=== PATIENT | female | born 1965 | race Caucasian/White ===

== ENCOUNTER → 2020-02-18 09:51 | Outpatient (BNVA) | payer MEDICARE, SELFPAY | PROVIDERS: PCP Nurse Practitioner Family; Referring Provider Nurse Practitioner Family; Visit Provider Internal Medicine | DX: R05 Cough (principal); J44.9 Chronic obstructive pulmonary disease, unspecified; Z79.899 Other long term (current) drug therapy | CPT/HCPCS: 99203 ==

== ENCOUNTER → 2020-03-05 15:33 | Outpatient (BNVA) | payer MEDICARE, SELFPAY | PROVIDERS: PCP Nurse Practitioner Family; Referring Provider Nurse Practitioner Family; Visit Provider Nurse Practitioner | DX: R19.5 Other fecal abnormalities (principal); K85.30 Drug induced acute pancreatitis without necrosis or infection; R11.2 Nausea with vomiting, unspecified; Z80.0 Family history of malignant neoplasm of digestive organs | CPT/HCPCS: 99212 ==

== ENCOUNTER → 2020-03-11 13:24 | Outpatient (BNVA) | payer MEDICARE, SELFPAY | PROVIDERS: PCP Nurse Practitioner Family; Referring Provider Nurse Practitioner Family; Visit Provider Internal Medicine Cardiovascular Disease | DX: I10 Essential (primary) hypertension (principal); J44.9 Chronic obstructive pulmonary disease, unspecified; Z79.899 Other long term (current) drug therapy | CPT/HCPCS: 99212 ==

== ENCOUNTER → 2020-03-16 09:28 | Outpatient (BNVA) | payer MEDICARE, SELFPAY | PROVIDERS: PCP Nurse Practitioner Family; Visit Provider Internal Medicine | DX: J44.9 Chronic obstructive pulmonary disease, unspecified (principal); R05 Cough | CPT/HCPCS: 99212 ==

== ENCOUNTER → 2020-04-13 08:53 | Outpatient (BNVA) | payer MEDICARE, SELFPAY | PROVIDERS: PCP Nurse Practitioner Family; Referring Provider Nurse Practitioner Family; Visit Provider Internal Medicine Cardiovascular Disease | DX: I10 Essential (primary) hypertension (principal) | CPT/HCPCS: 99212 ==

== ENCOUNTER → 2020-06-17 09:39 | Outpatient (BNVA) | payer MEDICARE, SELFPAY | PROVIDERS: PCP Nurse Practitioner Family; Visit Provider Internal Medicine | DX: Z13.89 Encounter for screening for other disorder (principal) | CPT/HCPCS: Q3014 ==

== ENCOUNTER → 2020-06-23 08:42 | Outpatient (BNVA) | payer MEDICARE, SELFPAY | PROVIDERS: PCP Nurse Practitioner Family; Visit Provider Nurse Practitioner | DX: Z76.89 Persons encountering health services in other specified circumstances (principal) | CPT/HCPCS: Q3014 ==

== ENCOUNTER 2020-06-24 08:02 | Outpatient (REF) | payer MEDICARE, SELFPAY ==
[2020-06-24 12:08] LABS: Alanine Aminotransferase 22 U/L (0-31); Albumin Level 4.3 g/dL (3.5-5.0); Alkaline Phosphatase 83 U/L (39-117); Amylase 162 U/L (28-100); Aspartate Amino Transferase 20 U/L (5-31); Bilirubin Direct < 0.2 mg/dL (0.0-0.5); Bilirubin Total 0.3 mg/dL (0.0-1.0); Hepatitis A Antibody IgG Nonreactive (Nonreactive); Lactate Dehydrogenase 228 U/L (122-220); Total Protein 6.5 g/dL (6.5-8.0); ~Hepatitis A Antibody IgG 0.25 S/CO (0.00-0.99)
[2020-06-24 12:10] LABS: Hepatitis A Antibody IgM 0.16 Index (0-0.79); ~Hepatitis A Antibody IgM Nonreactive (Nonreactive)
[2020-06-24 12:32] LABS: Lipase 252 U/L (8-78)
== END 2020-06-24 08:03 | disposition home or self-care (01) ==
LOC: HO.HMGCLDS 08:02
PROVIDERS: PCP Nurse Practitioner Family; Visit Provider Nurse Practitioner
DX: K85.30 Drug induced acute pancreatitis without necrosis or infection (principal); R10.10 Upper abdominal pain, unspecified
CPT/HCPCS: 36415; 80076; 82150; 83615; 83690; 86708; 86709

== ENCOUNTER 2020-06-25 08:37 | Outpatient (REF) | payer MEDICARE, SELFPAY | END 2020-06-25 08:38 | disposition home or self-care (01) | LOC: HO.HMGCLNP 08:37 | PROVIDERS: Visit Provider Nurse Practitioner | DX: R11.2 Nausea with vomiting, unspecified (principal); R10.10 Upper abdominal pain, unspecified; K85.30 Drug induced acute pancreatitis without necrosis or infection | CPT/HCPCS: 87338 ==

== ENCOUNTER 2020-06-29 09:41 | Emergency (ER) | payer MEDICARE, OTHER, SELFPAY ==
[2020-06-29] VITALS (8 sets, daily range): BP systolic 145–197; BP diastolic 81–121; PULSE 69–90; RESP 17–19; TEMP 36.5–36.9; O2SAT 94–99; BMI 25.0
--- NOTE | ~2020-06-29 | MR_ITS ---
EXAMINATION: MR CHOLANGIOPANCREATOGRAPHY CLINICAL INFORMATION: Evaluation of pancreas and pancreatic duct. COMPARISON: CT scan from earlier this evening TECHNIQUE: Multiple routine MRI sequences through the abdomen were obtained. Heavily T2-weighted images were performed utilizing a dedicated MRCP technique. Contrast was not utilized for the study. FINDINGS: Biliary system: The common bile duct is normal in course and caliber measuring up to 0.7 cm with no evidence for intra-or extrahepatic biliary ductal dilatation. No intraluminal filling defects are appreciated. Gallbladder: No gallstones, gallbladder wall thickening, or pericholecystic fluid. Liver parenchyma is homogeneous in signal with no focal hepatic lesion appreciated. Pancreas: The pancreatic duct measures up to 0.4 cm caliber with no evidence for pancreatic ductal obstruction or filling defects. The duct is well-visualized throughout its course up to the ampulla. There is normal homogeneous signal to the pancreas with no focal suspicious pancreatic lesion. No peripancreatic inflammatory changes or fluid No visualized abnormalities are seen in the kidneys, adrenals, or spleen. MR/MR MRCP IMPRESSION: Common bile duct upper limits of normal for size. Pancreatic duct is mildly prominent but I do not appreciate any focal filling defects as it extends up to the ampulla. Etiology for this mild ductal prominence is uncertain. In theory a subtle ampullary lesion cannot be entirely excluded although no discrete lesion is seen on the MR. If clinical symptoms persist, consider direct visualization of the ampulla. Pancreas itself is homogeneous in signal.
--- NOTE | ~2020-06-29 | CT_ITS ---
EXAMINATION: CT ABDOMEN AND PELVIS WITH CONTRAST CLINICAL INFORMATION: Abdominal pain COMPARISON: 03/07/2019 TECHNIQUE: Multidetector volumetric images were obtained from the superior aspect of the liver through the pubic symphysis following administration 85 mL of Omnipaque 350 intravenous contrast. Sagittal and coronal reformatted images were obtained on the technologist's workstation. Oral contrast: No This CT examination was performed using dose optimization techniques as appropriate, variously including the following: *Automated exposure control *Adjustment of mA and/or kV according to patient size (this includes techniques or standardized protocols for targeted exams where dose is matched to indication/reason for exam; i.e. extremities or head) *Use of iterative reconstruction technique DLP: 535 mGy-cm FINDINGS: LUNG BASES: The visualized lung bases are unremarkable. LIVER, GALLBLADDER, AND BILIARY TREE: The liver is normal in size, shape, and attenuation. No focal hepatic lesion or biliary ductal dilatation is present. The gallbladder is unremarkable with no evidence of radiopaque gallstones, gallbladder wall thickening, or obvious pericholecystic inflammatory changes. The common bile duct is prominent but similar to prior studies, up to 7 mm in diameter. PANCREAS: There is worsened dilation of the pancreatic duct, measuring up to 6 to 7 mm in the head of the pancreas. The pancreatic duct was at most 3 to 4 mm on the prior study 03/07/2019. Abnormal ductal dilatation is seen distally to the tail of the pancreas. No definite mass seen in the pancreatic head. An ampullary mass or stenosis could give this appearance. No peripancreatic fluid or inflammatory changes. SPLEEN: Unremarkable. ADRENAL GLANDS: Unremarkable. KIDNEYS AND URETERS: The kidneys are normal in size, shape, and attenuation. No hydronephrosis, hydroureter, or calculi seen. No perinephric stranding. BLADDER: Unremarkable. GASTROINTESTINAL TRACT: Stomach and small bowel are nondilated. Hyperdense suture material seen adjacent the cecum suggest prior appendectomy. No evidence of colitis or diverticulitis. ABDOMINAL WALL: No significant hernia is appreciated. LYMPH NODES: Normal. VASCULAR: Prominent azygos vein. Normal caliber aorta. PELVIC VISCERA: The uterus and adnexa are unremarkable. OSSEOUS STRUCTURES: Degenerative disc disease at L5-S1. CT/CT abdomen pelvis w con IMPRESSION: There is worsened dilation of the pancreatic duct, now nearly 6-7 mm in the head of the pancreas. No pancreatic head mass seen. An ampullary mass or stenosis could give this appearance. Consider correlation with ERCP. No peripancreatic fluid or inflammatory changes to suggest acute pancreatitis.
--- NOTE | 2020-06-29 11:15 | ECG_ITS ---
Test Reason : ABDOMINAL PAIN Blood Pressure : / mmHG Vent. Rate : 070 BPM Atrial Rate : 070 BPM P-R Int : 150 ms QRS Dur : 092 ms QT Int : 396 ms P-R-T Axes : 107 -21 053 degrees QTc Int : 427 ms Normal sinus rhythm Incomplete right bundle branch block Septal infarct , age undetermined Abnormal ECG When compared with ECG of 03-DEC-2019 17:29, Septal infarct is now Present Referred By: Fahad Barnes Electronically Signed By:SHAYY GUZMAN MD
--- NOTE | 2020-06-29 11:15 | ED.ABDPAIN ---
HPI - Abdominal Pain General Chief Complaint: Abdominal Pain <Fahad Barnes NP - Last Filed: 06/29/20 13:08> Stated Complaint: pancreatitis,abnormal labs <Fahad Barnes NP - Last Filed: 06/29/20 13:08> Time Seen by Provider: 06/29/20 11:14 <Fahad Barnes NP - Last Filed: 06/29/20 13:08> Source: patient <Fahad Barnes NP - Last Filed: 06/29/20 13:08> Mode of arrival: ambulatory <Fahad Barnes NP - Last Filed: 06/29/20 13:08> Limitations: no limitations <Fahad Barnes NP - Last Filed: 06/29/20 13:08> History of Present Illness HPI narrative: Pleasant 54-year-old female with past medical history significant for hypertension, cardiomyopathy, COPD who is a former 20+ year pack a day smoker states quit smoking 6 months ago, depression, anxiety, migraine headaches, complex regional pain syndrome was seen pain management in the past no longer seen them and surgical history significant for section, appendectomy and cardiac catheterization in the past, history of chronic GI issues with irregular bowels and states previously diagnosed pancreatitis and Monique of unclear etiology Today, she presents ambulatory via triage per the instructions of her GI team she reports that she has been having some left upper quadrant abdominal pain and had a blood work on outpatient basis last week and was called today given there was abnormalities in the blood work and the left-sided abdominal pain to come to our emergency room for possible pancreatitis. She does report that she has chronic irregular bowel movements with sometimes constipated sometimes diarrhea and she will get epigastric abdominal pain intermittently that actually seems to improve with some food intake. There is mild nausea but no vomiting. <Fahad Barnes NP - Last Filed: 06/29/20 13:08> MD elicited complaint: abdominal pain <Fahad Barnes NP - Last Filed: 06/29/20 13:08> Location: LUQ <Fahad Barnes NP - Last Filed: 06/29/20 13:08> Severity: moderate <Fahad Barnes NP - Last Filed: 06/29/20 13:08> Quality: aching <Fahad Barnes NP - Last Filed: 06/29/20 13:08> Radiation: LUQ <Fahad Barnes NP - Last Filed: 06/29/20 13:08> Migration to: L flank <Fahad Barnes NP - Last Filed: 06/29/20 13:08> Exacerbating factors: nothing <Fahad Barnes NP - Last Filed: 06/29/20 13:08> Relieving factors: eating <Fahad Barnes NP - Last Filed: 06/29/20 13:08> Associated symptoms: nausea <Fahad Barnes NP - Last Filed: 06/29/20 13:08> Related Data Home Medications: Home Medications Medication Instructions Recorded Confirmed albuterol sulfate 90 mcg/actuation INHALATION 02/05/20 04/13/20 aerosol inhaler alprazolam 0.5 mg tablet 0.5 mg PO Q8H PRN 02/05/20 04/13/20 ammonium lactate 12 % topical cream 1 applic TOPICAL BID 02/05/20 04/13/20 benzonatate 100 mg capsule 100 mg PO Q8H PRN 02/05/20 04/13/20 betamethasone dipropionate 0.05 % 1 applic TOPICAL BID 02/05/20 04/13/20 topical ointment [id number]-[id number]-lulrdzkn 2 tab PO TID 02/05/20 04/13/20 50 mg-325 mg-40 mg tablet clotrimazole 10 mg cris mg PO 02/05/20 04/13/20 irbesartan 300 mg tablet 300 mg PO DAILY 02/05/20 04/13/20 montelukast 10 mg tablet 10 mg PO BEDTIME 02/05/20 04/13/20 paroxetine HCl 30 mg tablet 30 mg PO QAM 02/05/20 04/13/20 pyridostigmine bromide 60 mg tablet 60 mg PO TID 02/05/20 04/13/20 aspirin 81 mg tablet,delayed 81 mg PO DAILY 02/18/20 04/13/20 release mecobalamin (vitamin B12) 1,000 1,000 mcg SUBLINGUAL DAILY 02/18/20 04/13/20 mcg disintegrating tablet,sublingual amlodipine 10 mg tablet 10 mg PO DAILY 03/11/20 04/13/20 bupropion HCl 300 mg 24 hr tablet, mg PO 04/13/20 04/13/20 extended release cyclobenzaprine 10 mg tablet 10 mg PO DAILY PRN 04/13/20 04/13/20 dextroamphetamine-amphetamine 10 1 tab PO DAILY 06/17/20 mg tablet Previous Rx's Medication Instructions Recorded diltiazem HCl 120 mg 120 mg PO DAILY 90 Days #90 cap 03/24/20 capsule,extended release 24 hr bisacodyl 5 mg tablet,delayed 10 mg PO DAILY #60 tab 04/06/20 release clonidine HCl 0.1 mg tablet 0.1 mg PO TID #270 tab 04/21/20 <Fahad Barnes NP - Last Filed: 06/29/20 13:08> Allergies/Adverse Reactions: Allergies Allergy/AdvReac Type Severity Reaction Status Date / Time gabapentin [GABAPENTIN] Allergy Intermediate ANXIETY Verified 06/23/20 08:44 lisinopril [LISINOPRIL] Allergy Intermediate COUGH Verified 06/23/20 08:44 atorvastatin Allergy Unknown eye pain Verified 06/23/20 08:44 carvedilol [CARVEDILOL] Allergy Unknown SHORTNESS Verified 06/23/20 08:44 OF BREATH, sob,elevated bp chlorthalidone Allergy Unknown PANCREATITI Verified 06/23/20 08:44 [CHLORTHALIDONE] S Sulfa (Sulfonamide Allergy Unknown c-diff Verified 06/23/20 08:44 Antibiotics) topiramate [Topamax] Allergy Unknown Unknown Verified 06/23/20 08:44 erythromycin base AdvReac Intermediate NAUSEA Verified 06/17/20 09:41 [ERYTHROMYCIN BASE] amitriptyline [AMITRIPTYLINE] AdvReac Unknown AGITATION Verified 06/17/20 09:41 <Fahad Barnes NP - Last Filed: 06/29/20 13:08> Review of Systems Review of Systems Constitutional: No Weight loss, No Fever, No Chills, No Night Sweats, No Fatigue, No Malaise ENT/Mouth: No Hearing loss, No Ear Pain, No Nasal Congestion, No Sinus Pain, No Hoarseness, No sore throat, No Rhinorrhea, No Swallowing Difficulty Eyes: No Eye Pain, No Swelling, No Redness, No Foreign Body, No Discharge, No Vision Changes Cardiovascular: No Chest Pain, No SOB, No Dyspnea on Exertion, No Orthopnea, No Edema, No Palpitations Respiratory: No Cough, No Sputum, No Wheezing, No Smoke Exposure, No Dyspnea Gastrointestinal: Abdominal pain as noted per HPI, No Hematochezia, No Melena Genitourinary: no irregular bleeding, No Dysuria, No Urinary Frequency, No Hematuria, No Urinary Incontinence, No Urgency, No Flank Pain, No Urinary Flow Changes, No Hesitancy Musculoskeletal: No joint pain, No Myalgias, No Joint Swelling Skin: No Skin Lesions, No rash Neuro: No Weakness, No Numbness, No Paresthesias, No Loss of Consciousness, No Dizziness, No Headache Psych: No Social Issues Heme/Lymph: No Bruising, No Bleeding,No Lymphadenopathy Endocrine: No Polyuria, No Polydipsia, No Temperature Intolerance <Fahad Barnes NP - Last Filed: 06/29/20 13:08> Yes all other systems are reviewed and are negative <Fahad Barnes NP - Last Filed: 06/29/20 13:08> Physical Exam Vital Signs: Vital Signs: Last Vital Signs Temp 98.0 F 06/29/20 13:42 Pulse 79 06/29/20 13:42 Resp 18 06/29/20 13:42 BP 153/93 H 06/29/20 13:42 Pulse Ox 99 06/29/20 13:42 Body Mass Index 25.0 Reviewed <Fahad Barnes NP - Last Filed: 06/29/20 13:08> Vital Signs: Last Vital Signs Temp 98.0 F 06/29/20 13:42 Pulse 79 06/29/20 13:42 Resp 18 06/29/20 13:42 BP 153/93 H 06/29/20 13:42 Pulse Ox 99 06/29/20 13:42 Body Mass Index 25.0 <Luis Angel Suggs MD - Last Filed: 06/29/20 15:02> Const: General: cooperative and healthy appearing; No acute distress or intoxicated appearing <Fahad Barnes NP - Last Filed: 06/29/20 13:08> Nutritional Appearance: average body habitus <Fahad Barnes NP - Last Filed: 06/29/20 13:08> Orientation/consciousness: patient oriented x3 <Fahad Barnes NP - Last Filed: 06/29/20 13:08> HENMT: Head: Yes normal to inspection <Fahad Barnes NP - Last Filed: 06/29/20 13:08> Ears: hearing grossly normal bilaterally <[facility] Molly - Last Filed: 06/29/20 13:08> Eyes: General: appearance normal, both eyes and all related structures <[facility] Molly - Last Filed: 06/29/20 13:08> Visual Cook: normal visual cook by confrontation <[facility] Molly - Last Filed: 06/29/20 13:08> Neck: Neck: Yes normal visual inspection, No positive Brudzinski's sign, No positive Kernig's sign and No tender <[facility] - Last Filed: 06/29/20 13:08> Thyroid: Thyroid normal [facility] - Last Filed: 06/29/20 13:08> Chest: Chest palpation & inspection: normal inspection of the chest <[facility] - Last Filed: 06/29/20 13:08> Resp: Effort & Inspection: normal respiratory effort <[facility] Barnes - Last Filed: 06/29/20 13:08> Auscultation: clear to auscultation bilaterally <[facility] - Last Filed: 06/29/20 13:08> Cardio: Jugular venous distension: no JVD <[facility] - Last Filed: 06/29/20 13:08> Rate: regular rate <[facility] - Last Filed: 06/29/20 13:08> Rhythm: regular rhythm <[facility] - Last Filed: 06/29/20 13:08> Heart sounds: S1 normal heart sound present and S2 normal heart sound present <[facility] - Last Filed: 06/29/20 13:08> GI: Inspection: Yes normal to inspection <[facility] - Last Filed: 06/29/20 13:08> Palpation (GI): Tenderness to palpation present (GI) in the LUQ <[facility] - Last Filed: 06/29/20 13:08> Percussion: Yes normal to percussion <[facility] - Last Filed: 06/29/20 13:08> Auscultation: normal bowel sounds <[facility] - Last Filed: 06/29/20 13:08> : General: Yes no CVA tenderness <Fahad Barnes NP - Last Filed: 06/29/20 13:08> Back/Spine/Pelvis: Back: no CVA tenderness <Fahad Barnes NP - Last Filed: 06/29/20 13:08> Skin: General skin exam: no rashes or lesions noted <Fahad Barnes NP - Last Filed: 06/29/20 13:08> Neuro: General: patient oriented x3 <Fahad Barnes NP - Last Filed: 06/29/20 13:08> Extrem: General: Yes normal to inspection <Fahad Barnes NP - Last Filed: 06/29/20 13:08> Course Course Course Narrative: 1300 Sign-out to Colten BANUELOS Patient labs without significant leukocytosis her H and H did drop by 1 point without any obvious bleeding. Chemistries without significant derangement no significant transaminitis lipase and amylase repeat still pending. Abdominal CT is done awaiting results. Will likely need consultation with GI services and pending disposition based on the CT results. <Fahad Barnes NP - Last Filed: 06/29/20 13:08> I have discussed the case and management with the SAMARA <Luis Angel Suggs MD - Last Filed: 06/29/20 15:02> MDM - Abdominal Pain MDM Narrative Medical decision making narrative: Will repeat labs, abdominal pelvis CT scan with IV dye and treat with antiemetics/analgesia p.r.n.. Well nontoxic appearing. <Fahad Barnes NP - Last Filed: 06/29/20 13:08> Differential Diagnosis Differential diagnosis: Likely abdominal pain, gastroenteritis, gastritis and pancreatitis; Unlikely aortic dissection, acute appendicitis, bowel perforation, calculus of kidney, constipation, diverticulitis, endometriosis, mesenteric ischemia, ovarian cyst, peptic ulcer disease, renal colic and small bowel obstruction <Fahad Barnes NP - Last Filed: 06/29/20 13:08> Medical Records Attestation: I reviewed the patient's medical records. <Fahad Barnes NP - Last Filed: 06/29/20 13:08> Medical records narrative: Gastroenterology as well as GI notes reviewed <Fahda Barnes NP - Last Filed: 06/29/20 13:08> Lab Data Attestation: I reviewed the patient's lab results. <Fahad Barnes NP - Last Filed: 06/29/20 13:08> Result diagrams: : 06/29/20 11:28 06/29/20 11:28 <Fahad Barnes NP - Last Filed: 06/29/20 13:08> Labs: Lab Results 06/29/20 06/29/20 06/29/20 Range/Units 11:28 11:28 11:28 WBC 5.8 (4.8-10.8) X10*3/uL RBC 4.10 L (4.20-5.50) X10*6/uL Hgb 11.5 L (12.0-16.0) g/dl Hct 36.3 L (37-47) % MCV 88.5 (80-98) fL MCH 28.0 (27.0-33.0) pg MCHC 31.7 (31.0-35.0) g/dl RDW 13.2 (11.0-16.0) % Plt Count 262 (160-400) X10*3/uL MPV 9.7 (9.4-12.3) fL Immature Gran % (Auto) 0.2 (0.0-0.4) % Neut % (Auto) 53.3 (45-73) % Lymph % (Auto) 36.3 (20-40) % Clay % (Auto) 7.6 (2-11) % Eos % (Auto) 2.1 (0-4) % Baso % (Auto) 0.5 (0-2) % Lymph # (Auto) 2.1 (1.2-4.9) X10*3/uL Clay # (Auto) 0.4 (0.1-1.2) X10*3/uL Eos # (Auto) 0.1 (0.0-0.4) X10*3/uL Baso # (Auto) 0.0 (0.0-0.2) X10*3/uL Abs Immat Gran (auto) 0.01 (0.00-0.03) X10*3/uL Absolute Neuts (auto) 3.1 (2.0-8.3) X10*3/uL Absolute Nucleated RBC 0.000 (0.0-0.012) X10*3/uL Nucleated RBC % (auto) 0.0 (0.0-0.2) /100WBC PT 10.8 (10.8-13.0) SEC INR 0.9 (0.9-1.1) APTT 40.2 H (24.1-38.0) SEC Sodium 140 (135-145) mmol/L Potassium 4.3 (3.3-5.1) mmol/L Chloride 110 H (96-108) mmol/L Carbon Dioxide 25 (22-29) mmol/L Anion Gap 9 L (12-20) BUN 20 H (9-16) mg/dL Creatinine 0.81 (0.5-1.4) mg/dL Estim Creat Clear Calc 69.7 Estimated GFR > 60 Random Glucose 100 (60-115) mg/dL Calcium 8.7 (8.4-10.2) mg/dL Total Bilirubin < 0.2 (0.0-1.0) mg/dL AST 16 (5-31) U/L ALT 18 (0-31) U/L Alkaline Phosphatase 83 (39-117) U/L Total Protein 6.2 L (6.5-8.0) g/dL Albumin 4.2 (3.5-5.0) g/dL Amylase 122 H D (28-100) U/L Lipase 155 H (8-78) U/L Urine Color Urine Appearance Urine pH (5.0-8.0) Ur Specific [place] (1.005-1.025) Urine Protein (NEG-TRACE) MG/DL Urine Glucose (UA) (NEG) MG/DL Urine Ketones (NEG) MG/DL Urine Blood (NEG) Urine Nitrite (NEG) Ur Leukocyte Esterase (NEG) Urine RBC (0) /HPF Urine WBC (0-4) /HPF Ur Squamous Epith Cells /LPF Ur Renal Epithelial Cell /LPF Urine Bacteria /LPF Urine Opiates Screen (Not Detect) Ur Barbiturates Screen (Not Detect) Ur Phencyclidine Scrn (Not Detect) Ur Amphetamines Screen (Not Detect) U Benzodiazepines Scrn (Not Detect) Urine Cocaine Screen (Not Detect) U Marijuana (THC) Screen (Not Detect) Ethyl Alcohol mg/dL 06/29/20 06/29/20 06/29/20 Range/Units 11:28 11:45 11:45 WBC (4.8-10.8) X10*3/uL RBC (4.20-5.50) X10*6/uL Hgb (12.0-16.0) g/dl Hct (37-47) % MCV (80-98) fL MCH (27.0-33.0) pg MCHC (31.0-35.0) g/dl RDW (11.0-16.0) % Plt Count (160-400) X10*3/uL MPV (9.4-12.3) fL Immature Gran % (Auto) (0.0-0.4) % Neut % (Auto) (45-73) % Lymph % (Auto) (20-40) % Clay % (Auto) (2-11) % Eos % (Auto) (0-4) % Baso % (Auto) (0-2) % Lymph # (Auto) (1.2-4.9) X10*3/uL Clay # (Auto) (0.1-1.2) X10*3/uL Eos # (Auto) (0.0-0.4) X10*3/uL Baso # (Auto) (0.0-0.2) X10*3/uL Abs Immat Gran (auto) (0.00-0.03) X10*3/uL Absolute Neuts (auto) (2.0-8.3) X10*3/uL Absolute Nucleated RBC (0.0-0.012) X10*3/uL Nucleated RBC % (auto) (0.0-0.2) /100WBC PT (10.8-13.0) SEC INR (0.9-1.1) APTT (24.1-38.0) SEC Sodium (135-145) mmol/L Potassium (3.3-5.1) mmol/L Chloride (96-108) mmol/L Carbon Dioxide (22-29) mmol/L Anion Gap (12-20) BUN (9-16) mg/dL Creatinine (0.5-1.4) mg/dL Estim Creat Clear Calc Estimated GFR Random Glucose (60-115) mg/dL Calcium (8.4-10.2) mg/dL Total Bilirubin (0.0-1.0) mg/dL AST (5-31) U/L ALT (0-31) U/L Alkaline Phosphatase (39-117) U/L Total Protein (6.5-8.0) g/dL Albumin (3.5-5.0) g/dL Amylase (28-100) U/L Lipase (8-78) U/L Urine Color YELLOW Urine Appearance CLEAR Urine pH 6.0 (5.0-8.0) Ur Specific [place] 1.025 (1.005-1.025) Urine Protein NEG (NEG-TRACE) MG/DL Urine Glucose (UA) NEG (NEG) MG/DL Urine Ketones NEG (NEG) MG/DL Urine Blood NEG (NEG) Urine Nitrite NEG (NEG) Ur Leukocyte Esterase NEG (NEG) Urine RBC 0 (0) /HPF Urine WBC 0 (0-4) /HPF Ur Squamous Epith Cells 1+ /LPF Ur Renal Epithelial Cell TRACE /LPF Urine Bacteria NONE /LPF Urine Opiates Screen Not Detected (Not Detect) Ur Barbiturates Screen POSITIVE H (Not Detect) Ur Phencyclidine Scrn Not Detected (Not Detect) Ur Amphetamines Screen POSITIVE H (Not Detect) U Benzodiazepines Scrn POSITIVE H (Not Detect) Urine Cocaine Screen Not Detected (Not Detect) U Marijuana (THC) Screen POSITIVE H (Not Detect) Ethyl Alcohol < 10 mg/dL <Fahad Barnes NP - Last Filed: 06/29/20 13:08> Lab Results 06/29/20 06/29/20 06/29/20 Range/Units 11:28 11:28 11:28 WBC 5.8 (4.8-10.8) X10*3/uL RBC 4.10 L (4.20-5.50) X10*6/uL Hgb 11.5 L (12.0-16.0) g/dl Hct 36.3 L (37-47) % MCV 88.5 (80-98) fL MCH 28.0 (27.0-33.0) pg MCHC 31.7 (31.0-35.0) g/dl RDW 13.2 (11.0-16.0) % Plt Count 262 (160-400) X10*3/uL MPV 9.7 (9.4-12.3) fL Immature Gran % (Auto) 0.2 (0.0-0.4) % Neut % (Auto) 53.3 (45-73) % Lymph % (Auto) 36.3 (20-40) % Clay % (Auto) 7.6 (2-11) % Eos % (Auto) 2.1 (0-4) % Baso % (Auto) 0.5 (0-2) % Lymph # (Auto) 2.1 (1.2-4.9) X10*3/uL Clay # (Auto) 0.4 (0.1-1.2) X10*3/uL Eos # (Auto) 0.1 (0.0-0.4) X10*3/uL Baso # (Auto) 0.0 (0.0-0.2) X10*3/uL Abs Immat Gran (auto) 0.01 (0.00-0.03) X10*3/uL Absolute Neuts (auto) 3.1 (2.0-8.3) X10*3/uL Absolute Nucleated RBC 0.000 (0.0-0.012) X10*3/uL Nucleated RBC % (auto) 0.0 (0.0-0.2) /100WBC PT 10.8 (10.8-13.0) SEC INR 0.9 (0.9-1.1) APTT 40.2 H (24.1-38.0) SEC Sodium 140 (135-145) mmol/L Potassium 4.3 (3.3-5.1) mmol/L Chloride 110 H (96-108) mmol/L Carbon Dioxide 25 (22-29) mmol/L Anion Gap 9 L (12-20) BUN 20 H (9-16) mg/dL Creatinine 0.81 (0.5-1.4) mg/dL Estim Creat Clear Calc 69.7 Estimated GFR > 60 Random Glucose 100 (60-115) mg/dL Calcium 8.7 (8.4-10.2) mg/dL Total Bilirubin < 0.2 (0.0-1.0) mg/dL AST 16 (5-31) U/L ALT 18 (0-31) U/L Alkaline Phosphatase 83 (39-117) U/L Total Protein 6.2 L (6.5-8.0) g/dL Albumin 4.2 (3.5-5.0) g/dL Amylase 122 H D (28-100) U/L Lipase 155 H (8-78) U/L Urine Color Urine Appearance Urine pH (5.0-8.0) Ur Specific [place] (1.005-1.025) Urine Protein (NEG-TRACE) MG/DL Urine Glucose (UA) (NEG) MG/DL Urine Ketones (NEG) MG/DL Urine Blood (NEG) Urine Nitrite (NEG) Ur Leukocyte Esterase (NEG) Urine RBC (0) /HPF Urine WBC (0-4) /HPF Ur Squamous Epith Cells /LPF Ur Renal Epithelial Cell /LPF Urine Bacteria /LPF Urine Opiates Screen (Not Detect) Ur Barbiturates Screen (Not Detect) Ur Phencyclidine Scrn (Not Detect) Ur Amphetamines Screen (Not Detect) U Benzodiazepines Scrn (Not Detect) Urine Cocaine Screen (Not Detect) U Marijuana (THC) Screen (Not Detect) Ethyl Alcohol mg/dL 06/29/20 06/29/20 06/29/20 Range/Units 11:28 11:45 11:45 WBC (4.8-10.8) X10*3/uL RBC (4.20-5.50) X10*6/uL Hgb (12.0-16.0) g/dl Hct (37-47) % MCV (80-98) fL MCH (27.0-33.0) pg MCHC (31.0-35.0) g/dl RDW (11.0-16.0) % Plt Count (160-400) X10*3/uL MPV (9.4-12.3) fL Immature Gran % (Auto) (0.0-0.4) % Neut % (Auto) (45-73) % Lymph % (Auto) (20-40) % Clay % (Auto) (2-11) % Eos % (Auto) (0-4) % Baso % (Auto) (0-2) % Lymph # (Auto) (1.2-4.9) X10*3/uL Clay # (Auto) (0.1-1.2) X10*3/uL Eos # (Auto) (0.0-0.4) X10*3/uL Baso # (Auto) (0.0-0.2) X10*3/uL Abs Immat Gran (auto) (0.00-0.03) X10*3/uL Absolute Neuts (auto) (2.0-8.3) X10*3/uL Absolute Nucleated RBC (0.0-0.012) X10*3/uL Nucleated RBC % (auto) (0.0-0.2) /100WBC PT (10.8-13.0) SEC INR (0.9-1.1) APTT (24.1-38.0) SEC Sodium (135-145) mmol/L Potassium (3.3-5.1) mmol/L Chloride (96-108) mmol/L Carbon Dioxide (22-29) mmol/L Anion Gap (12-20) BUN (9-16) mg/dL Creatinine (0.5-1.4) mg/dL Estim Creat Clear Calc Estimated GFR Random Glucose (60-115) mg/dL Calcium (8.4-10.2) mg/dL Total Bilirubin (0.0-1.0) mg/dL AST (5-31) U/L ALT (0-31) U/L Alkaline Phosphatase (39-117) U/L Total Protein (6.5-8.0) g/dL Albumin (3.5-5.0) g/dL Amylase (28-100) U/L Lipase (8-78) U/L Urine Color YELLOW Urine Appearance CLEAR Urine pH 6.0 (5.0-8.0) Ur Specific [place] 1.025 (1.005-1.025) Urine Protein NEG (NEG-TRACE) MG/DL Urine Glucose (UA) NEG (NEG) MG/DL Urine Ketones NEG (NEG) MG/DL Urine Blood NEG (NEG) Urine Nitrite NEG (NEG) Ur Leukocyte Esterase NEG (NEG) Urine RBC 0 (0) /HPF Urine WBC 0 (0-4) /HPF Ur Squamous Epith Cells 1+ /LPF Ur Renal Epithelial Cell TRACE /LPF Urine Bacteria NONE /LPF Urine Opiates Screen Not Detected (Not Detect) Ur Barbiturates Screen POSITIVE H (Not Detect) Ur Phencyclidine Scrn Not Detected (Not Detect) Ur Amphetamines Screen POSITIVE H (Not Detect) U Benzodiazepines Scrn POSITIVE H (Not Detect) Urine Cocaine Screen Not Detected (Not Detect) U Marijuana (THC) Screen POSITIVE H (Not Detect) Ethyl Alcohol < 10 mg/dL <Luis Angel Suggs MD - Last Filed: 06/29/20 15:02> Discharge Plan Discharge Prescriptions: No Action diltiazem HCl 120 mg capsule,extended release 24hr 120 mg PO DAILY 90 Days Qty: 90 RF: 1 bisacodyl 5 mg tablet,delayed release (DR/EC) 10 mg PO DAILY Qty: 60 RF: 1 clonidine HCl 0.1 mg tablet 0.1 mg PO TID Qty: 270 RF: 1 amlodipine 10 mg tablet 10 mg PO DAILY RF: 0 clotrimazole 10 mg cris PO RF: 0 ammonium lactate 12 % cream 1 applic topical BID RF: 0 [id number]-mvclxnqmfmjsb-ynlx 50-325-40 mg tablet 2 tab PO TID RF: 0 benzonatate 100 mg capsule 100 mg PO Q8H PRN (Reason: cough) RF: 0 alprazolam 0.5 mg tablet 0.5 mg PO Q8H PRNRF: 0 irbesartan 300 mg tablet 300 mg PO DAILY RF: 0 montelukast 10 mg tablet 10 mg PO BEDTIME RF: 0 paroxetine HCl 30 mg tablet 30 mg PO QAM RF: 0 betamethasone dipropionate 0.05 % ointment 1 applic topical BID RF: 0 pyridostigmine bromide 60 mg tablet 60 mg PO TID RF: 0 albuterol sulfate 90 mcg/actuation HFA aerosol inhaler inhalation RF: 0 cyclobenzaprine 10 mg tablet 10 mg PO DAILY PRNRF: 0 bupropion HCl 300 mg tablet extended release 24 hr PO RF: 0 mecobalamin (vitamin B12) 1,000 mcg tablet,disintegrating 1,000 mcg sublingual DAILY RF: 0 aspirin 81 mg tablet,delayed release (DR/EC) 81 mg PO DAILY RF: 0 dextroamphetamine-amphetamine 10 mg tablet 1 tab PO DAILY RF: 0 <Fahad Barnes NP - Last Filed: 06/29/20 13:08> [facility] Past Medical History Medical History: Medical History Cardiomyopathy COPD (chronic obstructive pulmonary disease) Cough Hypertension Smoking <Fahad Barnes NP - Last Filed: 06/29/20 13:08> Surgical History: Surgical History H/O section H/O lumbar sympathectomy History of appendectomy Hx of cardiac cath <Fahad Barnes NP - Last Filed: 06/29/20 13:08> Family History Family History: Family History Father Cardiomyopathy CHF (congestive heart failure) Mother HTN (hypertension) Angina pectoris Aneurysm Brother Colorectal cancer Brother Rectal polyp Sister Aneurysm <Fahad Barnes NP - Last Filed: 06/29/20 13:08> Social History Social History: Social History (Updated 06/23/20 @ 08:45 by Mary Arthur) Household Members: Spouse Alcohol intake: never Smoking Status: Former smoker Tobacco Type: Cigarette Years Smoked: 25 Use of substances other than those prescribed or required for medical reasons: Yes Substance Use Type: Marijuana Last Used Substance: Days (ago) Advance Directives: No Advance Directives Information Provided: No Current occupational status: disabled <Fahad Barnes NP - Last Filed: 06/29/20 13:08>
[2020-06-29] MEDS: Morphine Sulfate 4 MG/ML CARTRIDGE IVPUSH ×2 (11:39→16:46)
[2020-06-29] MEDS: ondansetron HCL 4 MG/2 ML VIAL IVPUSH (11:39)
[2020-06-29 11:40] LABS: Basophils Percent Auto 0.5 % (0-2); Eosinophils Absolute Auto 0.1 X10*3/uL (0.0-0.4); Eosinophils Percent Auto 2.1 % (0-4); Hematocrit 36.3 % (37-47); Hemoglobin 11.5 g/dl (12.0-16.0); Imm Gran Abs Auto 0.01 X10*3/uL (0.00-0.03); Imm Gran Pct Auto 0.2 % (0.0-0.4); Lymphocytes Absolute Auto 2.1 X10*3/uL (1.2-4.9); Lymphocytes Percent Auto 36.3 % (20-40); MANUAL DIFF FLAG NO; Mean Corpuscular HGB Conc 31.7 g/dl (31.0-35.0); Mean Corpuscular Volume 88.5 fL (80-98); Mean Platelet Volume 9.7 fL (9.4-12.3); Monocytes Absolute Auto 0.4 X10*3/uL (0.1-1.2); Monocytes Percent Auto 7.6 % (2-11); Neutrophils Absolute Auto 3.1 X10*3/uL (2.0-8.3); Neutrophils Percent Auto 53.3 % (45-73); Platelet Count 262 X10*3/uL (160-400); Red Cell Distribution Width 13.2 % (11.0-16.0); White Blood Count 5.8 X10*3/uL (4.8-10.8)
[2020-06-29 11:45] LABS: INTERNATIONAL NORM RATIO 0.9 (0.9-1.1); Prothrombin Time 10.8 SEC (10.8-13.0)
--- NOTE | 2020-06-29 11:45 | PC.NURSE ---
iv inserted, labs drawn, ekg performed, campus monitor applied, vss, pt medicated per order, will continue to monitor.
[2020-06-29 11:48] LABS: Partial Thromboplastin Time 40.2 SEC (24.1-38.0)
[2020-06-29 11:59] LABS: Glucose Urine UA NEG (NEG); Leukocyte Esterase Urine NEG (NEG); Nitrite Urine NEG (NEG); Specific Gravity - Urine 1.025 (1.005-1.025); Urine Blood NEG (NEG); Urine Ketones NEG (NEG); Urine Protein NEG (NEG-TRACE)
[2020-06-29 12:00] LABS: Appearance Urine CLEAR; Color Urine YELLOW
[2020-06-29 12:06] LABS: Ethanol < 10 mg/dL
[2020-06-29 12:11] LABS: RBC Urine 0 /HPF (0); Renal Epithelial Cells Urine TRACE /LPF; Squamous Epithelial Cell Urine 1+ /LPF; WBC Urine 0 /HPF (0-4)
[2020-06-29 12:12] LABS: Alanine Aminotransferase 18 U/L (0-31); Albumin Level 4.2 g/dL (3.5-5.0); Alkaline Phosphatase 83 U/L (39-117); Anion Gap 9 (12-20); Aspartate Amino Transferase 16 U/L (5-31); Bilirubin Total < 0.2 mg/dL (0.0-1.0); Blood Urea Nitrogen 20 mg/dL (9-16); Calcium 8.7 mg/dL (8.4-10.2); Carbon Dioxide 25 mmol/L (22-29); Chloride 110 mmol/L (96-108); Creatinine Clr Calc Pharmacy 69.7; Estimated Glomerular Filt Rate > 60; Glucose Random 100 mg/dL (60-115); Potassium 4.3 mmol/L (3.3-5.1); Sodium 140 mmol/L (135-145); Total Protein 6.2 g/dL (6.5-8.0)
[2020-06-29 12:22] LABS: Amphetamine Screen Urine POSITIVE (Not Detect); Barbiturates, Urine POSITIVE (Not Detect); Benzodiazepines Screen Urine POSITIVE (Not Detect); Cannabinoid Screen Urine POSITIVE (Not Detect); Cocaine Screen Urine Not Detected (Not Detect); Opiate Screen Urine Not Detected (Not Detect); Phencyclidine Screen Urine Not Detected (Not Detect)
[2020-06-29 12:52] LABS: Amylase 122 U/L (28-100)
[2020-06-29 13:05] LABS: Lipase 155 U/L (8-78)
[2020-06-29] MEDS: iohexoL 350 MG/ML 100 ML INFUS..BTL 85 ML IV (13:27)
--- NOTE | 2020-06-29 13:43 | PC.NURSE ---
patient a&ox3, vss, pt states she takes clonadine .1mg for her bp at lunch, will notify provider, pt states her pain is 6/10 lt abd, will continue to monitor.
--- NOTE | 2020-06-29 13:44 | PC.NURSE ---
pt also c/o headache-history of migraines per patient, she states she takes fioricet and would like a dose, pt to get a nerve block for her migraines, will notify provider.
[2020-06-29] MEDS: Butalb/Acetamin/Caff 50/325/40 TABLET 2 TAB PO (15:00)
--- NOTE | 2020-06-29 15:01 | PC.NURSE ---
patient medicated per order
--- NOTE | 2020-06-29 16:50 | PC.NURSE ---
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
[2020-06-29] MEDS: cloNIDine HCL 0.1 MG TABLET PO (18:09)
--- NOTE | 2020-06-29 18:10 | PC.NURSE ---
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
--- NOTE | 2020-06-29 19:27 | PC.NURSE ---
mri form faxed
--- NOTE | 2020-06-29 19:59 | PC.NURSE ---
patient a&ox3, brand lead sinus eagle 60s with occasional pvcs, vss, pt c/o 01/15 migraine as well as lt abd pain 12/15, will notify provider and continue to monitor.
[2020-06-29] MEDS: 0.9 % Sodium Chloride 1,000 ML 999 ML IVCONT (21:19)
[2020-06-29] MEDS: oxyCODONE HCl Immed Release 5 MG TABLET PO (21:19)
--- NOTE | 2020-06-29 21:25 | PC.NURSE ---
pt medicated per order
== END 2020-06-29 23:20 | disposition home or self-care (01) ==
PROVIDERS: Nurse Practitioner Primary Care; Emergency Provider Emergency Medicine; PCP Nurse Practitioner Family
DX: K85.90 Acute pancreatitis without necrosis or infection, unspecified (principal); I10 Essential (primary) hypertension; J44.9 Chronic obstructive pulmonary disease, unspecified; G43.909 Migraine, unspecified, not intractable, without status migrainosus; F12.90 Cannabis use, unspecified, uncomplicated; Z87.891 Personal history of nicotine dependence; Z79.899 Other long term (current) drug therapy; Z79.82 Long term (current) use of aspirin
CPT/HCPCS: 36415; 74177; 74181; 80053; 80307; 80320; 81001; 82150; 83690; 85025; 85610; 85730; 93005; 96361; 96374; 96375; 96376; 99285; J2270; J2405; Q9967

== ENCOUNTER 2020-06-30 08:27 | Outpatient (REF) | payer MEDICARE, SELFPAY ==
--- NOTE | ~2020-06-30 | US_ITS ---
EXAMINATION: US ABDOMEN COMPLETE CLINICAL INFORMATION: Nausea with upper abdominal pain. COMPARISON: CT abdomen pelvis 06/29/2020. Ultrasound renals 03/19/2019. MRCP 06/29/2020. TECHNIQUE: Real-time imaging of the abdominal viscera. FINDINGS: PANCREAS: Pancreatic duct is prominent measuring 0.5 cm. This has been further evaluated on the recent MRCP and CT abdomen of 06/29/2020. No focal pancreatic lesion seen. ABDOMINAL AORTA: The proximal, mid, and distal segments are normal in caliber. INFERIOR VENA CAVA: Visualized portions are normal. LIVER: The liver contour is normal. Parenchymal echogenicity is normal. No focal hepatic lesion. There is no intrahepatic biliary duct dilatation seen. GALLBLADDER: There is mild echogenic debris within the gallbladder. The gallbladder is physiologically distended without evidence of stones, sludge, wall thickening or pericholecystic fluid. COMMON BILE DUCT: Mildly prominent caliber measuring 0.8 cm in diameter. RIGHT KIDNEY: Normal. No hydronephrosis. No renal calculi or focal parenchymal lesions. The kidney measures 11.3 cm in maximum dimension. LEFT KIDNEY: Normal. No hydronephrosis. No renal calculi or focal parenchymal lesions. The kidney measures 11.5 cm in maximum dimension. SPLEEN: Normal. The spleen measures 10.4 cm in maximum dimension. FREE FLUID: None. US/US abdomen complete IMPRESSION: 1. CBD measures 0.8 cm, mildly prominent. This has been further evaluated on the recent MRCP of 06/29/2020. 2. No focal liver lesions. No intrahepatic biliary duct dilatation. 3. Pancreatic duct is prominent measuring 0.5 cm in caliber. This is further evaluated on the MRCP of 06/29/2020. Please review MRCP report. 4. Mildly echogenic debris in the gallbladder. No shadowing calculi or wall thickening.
== END 2020-06-30 08:28 | disposition home or self-care (01) ==
LOC: HO.HMGCX 08:27
PROVIDERS: Visit Provider Nurse Practitioner
DX: R10.10 Upper abdominal pain, unspecified (principal); R11.2 Nausea with vomiting, unspecified; K85.30 Drug induced acute pancreatitis without necrosis or infection
CPT/HCPCS: 76700

== ENCOUNTER → 2020-07-01 15:35 | Outpatient (BNVA) | payer MEDICARE, SELFPAY | PROVIDERS: PCP Nurse Practitioner Family; Visit Provider Nurse Practitioner | CPT/HCPCS: 99212 ==

== ENCOUNTER → 2020-07-02 13:35 | Outpatient (BNVA) | payer MEDICARE, SELFPAY | PROVIDERS: PCP Nurse Practitioner Family; Visit Provider Internal Medicine Gastroenterology | DX: Z13.89 Encounter for screening for other disorder (principal) | CPT/HCPCS: Q3014 ==

== ENCOUNTER 2020-07-08 11:18 | Outpatient (REF) | payer MEDICARE, SELFPAY ==
[2020-07-08 14:04] LABS: MANUAL DIFF FLAG NO
[2020-07-08 14:19] LABS: Basophils Percent Auto 0.4 % (0-2); Eosinophils Absolute Auto 0.1 X10*3/uL (0.0-0.4); Eosinophils Percent Auto 1.5 % (0-4); Hematocrit 39.2 % (37-47); Hemoglobin 12.8 g/dl (12.0-16.0); Imm Gran Abs Auto 0.03 X10*3/uL (0.00-0.03); Imm Gran Pct Auto 0.4 % (0.0-0.4); Lymphocytes Absolute Auto 2.2 X10*3/uL (1.2-4.9); Mean Corpuscular HGB Conc 32.7 g/dl (31.0-35.0); Mean Corpuscular Hemoglobin 28.3 pg (27.0-33.0); Mean Corpuscular Volume 86.5 fL (80-98); Mean Platelet Volume 10.5 fL (9.4-12.3); Monocytes Absolute Auto 0.8 X10*3/uL (0.1-1.2); Monocytes Percent Auto 11.4 % (2-11); Neutrophils Absolute Auto 4.1 X10*3/uL (2.0-8.3); Neutrophils Percent Auto 56.3 % (45-73); Platelet Count 302 X10*3/uL (160-400); Red Blood Count 4.53 X10*6/uL (4.20-5.50); Red Cell Distribution Width 12.8 % (11.0-16.0); White Blood Count 7.3 X10*3/uL (4.8-10.8)
[2020-07-08 14:38] LABS: Lipase 64 U/L (8-78); Triglycerides 220 mg/dL
[2020-07-09 11:42] LABS: Carbohydrate Antigen 19-9 12 U/mL (<34)
== END 2020-07-08 11:19 | disposition home or self-care (01) ==
LOC: HO.HMGCLDS 11:18
PROVIDERS: PCP Nurse Practitioner Family; Visit Provider Internal Medicine Gastroenterology
DX: K85.90 Acute pancreatitis without necrosis or infection, unspecified (principal); K86.1 Other chronic pancreatitis
CPT/HCPCS: 36415; 82378; 83690; 84478; 85025; 86301

== ENCOUNTER 2020-08-03 14:19 | Outpatient (RCR) | payer MEDICARE, SELFPAY | END 2020-08-11 14:02 | disposition home or self-care (01) | LOC: HO.WCC 14:19 | PROVIDERS: PCP Nurse Practitioner Family; Visit Provider Physician Assistant | DX: T23.261D Burn of second degree of back of right hand, subsequent encounter (principal); K86.1 Other chronic pancreatitis | CPT/HCPCS: 99213 ==

== ENCOUNTER 2020-09-22 10:25 | Emergency (ER) | payer MEDICARE, SELFPAY ==
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
[2020-09-22 11:09] VITALS: BP 149/116; PULSE 105; RESP 18; TEMP 37; O2SAT 98; BMI 24.3
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
[2020-09-22] MEDS: Fluorescein Sodium STRIP 1 STRIP EYE-LEFT (12:13)
[2020-09-22] MEDS: Tetracaine HCl/PF 0.5% Oph Sol 4 ML DROPS 1 DROP EYE-LEFT (12:13)
[2020-09-22] MEDS: HYDROcodone Bit/Acetam 5/325 TABLET 1 TAB PO (12:39)
[2020-09-22] MEDS: Diphth,Pertus(ACell),Tet Adult 0.5 ML SYRINGE IM (12:39)
[2020-09-22 12:43] VITALS: BP 148/88; PULSE 79; RESP 16; O2SAT 98
== END 2020-09-22 14:25 | disposition home or self-care (01) ==
PROVIDERS: Emergency Provider Emergency Medicine; PCP Nurse Practitioner Family
DX: T15.02XA Foreign body in cornea, left eye, initial encounter (principal); T15.12XA Foreign body in conjunctival sac, left eye, initial encounter; S00.83XA Contusion of other part of head, initial encounter; W22.8XXA Striking against or struck by other objects, initial encounter; Y93.89 Activity, other specified; Y92.017 Garden or yard in single-family (private) house as the place of occurrence of the external cause; Y99.9 Unspecified external cause status
CPT/HCPCS: 70450; 70486; 90471; 90715; 99284

== ENCOUNTER 2020-11-11 09:31 | Outpatient (REF) | payer MEDICARE, SELFPAY ==
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
== END 2020-11-11 09:32 | disposition home or self-care (01) ==
LOC: HO.HMGCX 09:31
PROVIDERS: PCP Nurse Practitioner Family; Visit Provider Nurse Practitioner Family
DX: S99.922A Unspecified injury of left foot, initial encounter (principal); M79.672 Pain in left foot
CPT/HCPCS: 73630

== ENCOUNTER → 2020-11-12 15:23 | Outpatient (BNVA) | payer MEDICARE, SELFPAY | PROVIDERS: Visit Provider Physician Assistant | DX: S92.912A Unspecified fracture of left toe(s), initial encounter for closed fracture (principal) | CPT/HCPCS: 99202 ==

== ENCOUNTER → 2020-11-23 08:07 | Outpatient (BNVA) | payer MEDICARE, SELFPAY | PROVIDERS: PCP Nurse Practitioner Family; Visit Provider Orthopaedic Surgery | DX: M54.12 Radiculopathy, cervical region (principal) | CPT/HCPCS: 20610; 99202; J1100 ==

== ENCOUNTER 2021-04-26 14:27 | Outpatient (REF) | payer MEDICARE, SELFPAY ==
[2021-04-26 15:14] LABS: Influenza A PCR NEGATIVE (Negative); Influenza B PCR NEGATIVE (Negative); Resp Syncy Virus RNA Qual PCR NEGATIVE (Negative); SARS COV2 PCR INHOUSE NEGATIVE (Negative)
== END 2021-04-26 14:28 | disposition home or self-care (01) ==
LOC: HO.LNP 14:27
PROVIDERS: Visit Provider Physician Assistant
DX: Z20.822 Contact with and (suspected) exposure to COVID-19 (principal)
CPT/HCPCS: 0241U

== ENCOUNTER → 2021-07-22 10:14 | Outpatient (BNVA) | payer MEDICARE, SELFPAY | PROVIDERS: PCP Nurse Practitioner Family; Visit Provider Orthopaedic Surgery | DX: M75.51 Bursitis of right shoulder (principal); M75.52 Bursitis of left shoulder | CPT/HCPCS: 20610; 99212; J1100 ==

== ENCOUNTER 2022-04-07 08:58 | Outpatient (REF) | payer MEDICARE, SELFPAY ==
--- NOTE | ~2022-04-07 | XR_ITS ---
EXAMINATION: XR AP STANDING VIEW BOTH KNEES. XR KNEE, RIGHT CLINICAL INFORMATION: Knee pain COMPARISON: MRI 12/08/2014 TECHNIQUE: AP standing view both knees. Lateral and sunrise views of the right knee. FINDINGS: No fracture or malalignment. No significant joint space narrowing. No joint effusion. Bone mineralization is normal. AP view of the left knee is unremarkable. XR/XR knee RT 2V IMPRESSION: No acute osseous abnormality or significant degenerative findings of the right knee.
--- NOTE | ~2022-04-07 | XR_ITS ---
EXAMINATION: XR AP STANDING VIEW BOTH KNEES. XR KNEE, RIGHT CLINICAL INFORMATION: Knee pain COMPARISON: MRI 12/08/2014 TECHNIQUE: AP standing view both knees. Lateral and sunrise views of the right knee. FINDINGS: No fracture or malalignment. No significant joint space narrowing. No joint effusion. Bone mineralization is normal. AP view of the left knee is unremarkable. XR/XR knee standing BI IMPRESSION: No acute osseous abnormality or significant degenerative findings of the right knee.
== END 2022-04-07 08:59 | disposition home or self-care (01) ==
LOC: HO.HOSX 08:58
PROVIDERS: Visit Provider Orthopaedic Surgery
DX: M25.561 Pain in right knee (principal)
CPT/HCPCS: 73560; 73565

== ENCOUNTER 2022-07-29 09:41 | Outpatient (REF) | payer MEDICARE, SELFPAY ==
--- NOTE | ~2022-07-29 | XR_ITS ---
EXAMINATION: XR PELVIS CLINICAL INFORMATION: Pelvic pain. COMPARISON: None available. TECHNIQUE: AP view of the pelvis. FINDINGS: Bilateral hip joints and SI joint spaces maintained. The no visible fracture or dislocation seen involving the pelvic bone. Mild pubic symphysitis with hypertrophy is noted. There are surgical meredith in the right mid pelvis and left upper pelvis from previous vascular intervention likely. Otherwise, soft tissues are normal. XR/XR pelvis 1-2V IMPRESSION: 1. Mild pubic symphysitis. No visible acute fracture or dislocation seen. 2. There are surgical meredith in the right mid pelvis and left upper pelvis from previous vascular intervention.
== END 2022-07-29 09:42 | disposition home or self-care (01) ==
LOC: HO.HOSX 09:41
PROVIDERS: Visit Provider Orthopaedic Surgery
DX: M25.551 Pain in right hip (principal)
CPT/HCPCS: 72170

== ENCOUNTER 2024-09-06 14:23 | Outpatient (AMB) | payer MEDICARE, SELFPAY ==
--- OUTSIDE RECORDS SUMMARY | 2024-09-06 14:35 | XMS_ITS | Clinical Summary ---
Author Organization [facility] ity Address [address] [place] [address] Care Team Providers Care Track Car Operator Name Role Phone Unavailable Primary Care Provider Unavailabl e Social History Tobacco Use Types Packs/Day Years Used Date Smoking Tobacco: Never Assessed Comments Unknown Sex and Gender Information Value Date Recorded Sex Assigned at Not on file Legal Sex Female 5:00 PM EST Gender Identity Not on file Sexual Orientation Not on file Plan of Treatment Health Maintenance Due Date Last Done Comments Breast Cancer Screening 1965 DTaP,Tdap,and Td Vaccines (1 - Tdap) 08/23/1982 Cervical Cancer Screening: P ap Smear 08/23/1984 Pneumococcal Vaccine: 50+ Ye ars (1 of 1 - PCV) 08/23/2013 Zoster Vaccines (1 of 2) 08/23/2013 COVID-19 Vaccine ( - 2023-2 5 season) 2024 Influenza Vaccine (Season Ended) 2025 RSV Immunization Adult Patie nts (1 - 1-dose 75+ series) 08/23/2038 HIB Vaccines Aged Out No longer eligi ble based on patient's age to complete this topic HPV Vaccines Aged Out No longer eligi ble based on patient's age to complete this topic Hepatitis A Vaccines Aged Out No long er eligible based on patient's age to complete this topic Hepatitis B Vaccines Aged Out No long er eligible based on patient's age to complete this topic IPV Vaccines Aged Out No longer eligi ble based on patient's age to complete this topic MMR Vaccines Aged Out No longer eligi ble based on patient's age to complete this topic Meningococcal ACWY Vaccine Aged Out N o longer eligible based on patient's age to complete this topic Meningococcal B Vaccine Aged Out No l onger eligible based on patient's age to complete this topic Pneumococcal Vaccine: Pediat rics (0 to 5 Years) and At-Risk Patients (6 to 64 Years) Aged Out No longer eligible b ased on patient's age to complete this topic RSV Immunization Patients Un jenniffer 20 months Aged Out No longer eligible b ased on patient's age to complete this topic Varicella Vaccines Aged Out No longer eligible based on patient's age to complete this topic
--- NOTE | 2024-09-06 14:38 | A.OFFVIS_ITS ---
Vital Signs 09/06/24 14:47 Height 5 ft 4 in Weight 145 lb 4 oz BMI 24.9 BP 147/77 H Blood Pressure Location Lt brachial Position Sitting Pulse 88 Pulse Source Pulse Oximeter Pulse Oximetry (%) 97 Oxygen Delivery Method Room Air Intake Visit Reasons: Sacrococcygeal Disorders Intake Note: Pain today 12/15 Silk Top Hat Body Maker Required: No Accompanied by: Self / Same As Patient Allergies chlorthalidone [CHLORTHALIDONE] Allergy (Severe, Verified 09/06/24 14:49) PANCREATITIS carvedilol [CARVEDILOL] Allergy (Intermediate, Verified 09/06/24 14:49) SHORTNESS OF BREATH, sob,elevated bp Sulfa (Sulfonamide Antibiotics) Allergy (Intermediate, Verified 09/06/24 14:49) c-diff topiramate [Topamax] Allergy (Unknown, Verified 09/06/24 14:49) Unknown amitriptyline [AMITRIPTYLINE] Adverse Reaction (Intermediate, Verified 09/06/24 14:49) AGITATION atorvastatin Adverse Reaction (Intermediate, Verified 09/06/24 14:49) eye pain erythromycin base [ERYTHROMYCIN BASE] Adverse Reaction (Intermediate, Verified 09/06/24 14:49) NAUSEA gabapentin [GABAPENTIN] Adverse Reaction (Intermediate, Verified 09/06/24 14:49) ANXIETY lisinopril [LISINOPRIL] Adverse Reaction (Intermediate, Verified 09/06/24 14:49) COUGH HPI Comments Details: The patient is a 59-year-old female presenting with chronic coccyx and right hip pain associated with osteoarthritis. The pain has persisted for several years, mainly affecting her ability to sit and causing sharp pain in her groin. Denies inciting injury, fall, trauma. Initial treatments included cortisone injections to the coccyx and right hip which yielded substantial relief initially, though recent treatments have been less effective. She reports a sharp increase in pain following a recent injection, and there is a potential consideration for fibromyalgia, despite the lack of widespread pain symptoms. She completed physical therapy approximately 4 months ago without improvement. Several years ago underwent manual manipulation by chiropractor without improvement. Currently taking Aleve twice daily, muscle relaxers, utilizing heat and ice all without improvement of her symptoms Currently under care of orthopedics for her right hip. - Onset and Duration: Chronic pain persisting for several years. - Quality and Character: Sharp and intense pain. - Primary Location: Coccyx and right hip, with sharp pains radiating to the groin. - Exacerbating Factors: Sitting. - Relieving Factors: Standing. - Functional Impact: Interferes with her ability to sit comfortably. - Affect: Pain impacts the patient's comfort and functional ability. - Analgesia: Cortisone injections previously effective, recent injections less so, leaving her with approximately 10% relief post-injection. - Adverse Effects: Intense post-injection pain lasting 10 days. - Activities of Daily Living: Limited by pain primarily when sitting. - Aberrant Drug Related Behaviors: None reported. [facility] Medical History (Updated 09/06/24 @ 17:02 by Katrina Bae, OPHTHALMIC MEDICAL TECHNICIAN, MANUFACTURERS SERVICE REPRESENTATIVE) Myasthenia gravis ADHD Hx of anxiety disorder Depression Arthritis Hx of acute pancreatitis Reflex sympathetic dystrophy Migraine Asthma Cardiomyopathy Hypertension Smoking COPD (chronic obstructive pulmonary disease) Cough Surgical History History of endometrial ablation History of nasal surgery History of arthroscopy of left knee History of surgery Hx of cardiac cath H/O lumbar sympathectomy History of appendectomy H/O section Family History Father Cardiomyopathy CHF (congestive heart failure) Mother HTN (hypertension) Angina pectoris Aneurysm Brother Colorectal cancer Brother Rectal polyp Sister Aneurysm Social History (Updated 07/29/22 @ 10:26 by MARGAUX Anderson) Household Members: Spouse Are you a primary certified caregiver to a significant other at home: No Do you presently have visiting nurse or other home services: No Patient Tobacco Use Status: Former Tobacco user Years Smoked: 25 Substance Use Type: Marijuana Current occupational status: disabled 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 - Neurological: Denies widespread pain associated with fibromyalgia. Physical Exam Vital Signs: Last Vital Signs Pulse 88 09/06/24 14:47 BP 147/77 H 09/06/24 14:47 Pulse Ox 97 09/06/24 14:47 Oxygen Delivery Method Room Air 09/06/24 14:47 BMI result Body Mass Index 24.9 General: awake, alert, oriented. Answers questions appropriately. Fully engaged in examination. Skin: warm, dry, intact HEENT: Normocephalic. Hearing intact. Cardiac: External chest normal in appearance. Respiratory: No cough, audible wheezing or stridor. Abdomen: without gross distension. MS: No obvious swelling or deformities. Able to transition from sit to stand unassisted. Ambulates with bilaterally normal heel strike and toe off Endorses tenderness to palpation over coccyx Neurological: Oriented to person, place, time and situation. Thought process intact. No gait abnormalities appreciated. Psychiatric: Appropriate mood and affect. Good judgment and insight. Assessment & Plan Assessment & Plan (1) Coccydynia: Code(s): M53.3 - Sacrococcygeal disorders, not elsewhere classified Category: Medical (2) Chronic pain syndrome: Code(s): G89.4 - Chronic pain syndrome Category: Medical (3) Right hip pain: Code(s): M25.551 - Pain in right hip Category: Medical Plan The plan includes pursuing a ganglion impar block for enhanced pain relief on the coccyx, with specific discussion around potential risks and benefits of this procedure. We will provide Ativan prior to the procedure to improve her comfort. Conservative measures with NSAIDs and avoiding triggers continue. Follow-ups are scheduled post-procedure to evaluate the outcomes. MRI may be explored if current strategies do not yield satisfactory improvement. I discussed with the patient the option of undergoing a ganglion impar block injection, explaining that it may offer improved relief over her recent cortisone injections. We reviewed the potential risks, including post-injection discomfort, and the rationale that it might target the ache more directly owing to its action on the coccyx nerve pathways. Additionally, using Ativan preemptively was suggested to help manage procedural anxiety. We also talked about ensuring sufficient time between this procedure and her last set of steroid injections, to prevent any potential complications from overlap. The patient acknowledged understanding and agreed to the proposed management. Plan for fluoroscopy guided ganglion impar block with local anesthetic, Ativan to be sent for patient to take 30 minutes prior to arrival for her procedure. Patient was informed and verbally consented to the use of an ambient scribe for clinic note documentation during this visit. Patient Instructions: - Continue taking Aleve twice daily. - Stand rather than sit to relieve coccyx pain when possible. - A ganglion impar block procedure is being scheduled; take Ativan as instructed before the procedure. - Report to the clinic if the pain intensifies or new symptoms develop. - Continue using heat and ice packs as needed for pain management. Coding Level of Care Code New Pt Level 4 (20714) Complex EM visit Add On G2211 Diagnoses Coccydynia M53.3 Chronic pain syndrome G89.4 Right hip pain M25.551
[2024-09-06 14:47] VITALS: BP 147/77; PULSE 88; O2SAT 97; BMI 24.9
== END 2024-09-06 15:19 | disposition home or self-care (01) ==
LOC: HO.PMC 14:23
PROVIDERS: Referring Provider Physician Assistant; Visit Provider Registered Nurse Emergency
DX: M53.3 Sacrococcygeal disorders, not elsewhere classified (principal); G89.4 Chronic pain syndrome; M25.551 Pain in right hip
CPT/HCPCS: 99204; G2211

== ENCOUNTER → 2024-09-06 14:23 | Outpatient (BNVA) | payer MEDICARE, SELFPAY | PROVIDERS: Referring Provider Physician Assistant; Visit Provider Registered Nurse Emergency | DX: M53.3 Sacrococcygeal disorders, not elsewhere classified (principal); M16.11 Unilateral primary osteoarthritis, right hip; G89.4 Chronic pain syndrome | CPT/HCPCS: 99202 ==

== ENCOUNTER 2024-10-10 06:03 | Outpatient (REF) | payer MEDICARE, SELFPAY ==
--- NOTE | ~2024-10-10 | FL_ITS ---
EXAMINATION: FL GUIDANCE ONLY HISTORY: M53.3 - Sacrococcygeal disorders, not elsewhere classified COMPARISON: None available. TECHNIQUE: Fluoroscopy time: 6.9 seconds. Cumulative Dose: 5.8906 mGy. DAP: 0.3858 mGym2 Images: 2. FINDINGS: Fluoroscopic spot films of the tip of the sacrum demonstrate a needle and contrast material. FL/FL guidance in treatment room IMPRESSION: Fluoroscopy during procedure. Please see procedure report for additional information. Electronically signed by: Syd Pickens MD 10/10/2024 02:21 PM EDT
== END 2024-10-10 06:04 | disposition home or self-care (01) ==
LOC: CF 06:03
PROVIDERS: Visit Provider Internal Medicine
DX: M53.3 Sacrococcygeal disorders, not elsewhere classified (principal)
CPT/HCPCS: 64999; J2003; J2795; J3301; Q9967

== ENCOUNTER 2024-10-10 08:55 | Outpatient (AMB) | payer MEDICARE, SELFPAY ==
--- NOTE | 2024-10-10 09:01 | MHC.OFFVIS ---
Vital Signs 10/10/24 09:02 10/10/24 09:45 BP 119/76 131/86 Blood Pressure Location Lt brachial Lt brachial Position Sitting Sitting Respiration 16 16 Pulse 76 79 Pulse Source Pulse Oximeter Pulse Oximeter Pulse Oximetry (%) 99 97 Oxygen Delivery Method Room Air Room Air Intake Visit Reasons: Ganglion Impar Block/ ativan Senior Accountant Required: No Allergies chlorthalidone [CHLORTHALIDONE] Allergy (Severe, Verified 10/10/24 09:02) PANCREATITIS carvedilol [CARVEDILOL] Allergy (Intermediate, Verified 10/10/24 09:02) SHORTNESS OF BREATH, sob,elevated bp Sulfa (Sulfonamide Antibiotics) Allergy (Intermediate, Verified 10/10/24 09:02) c-diff topiramate [Topamax] Allergy (Unknown, Verified 10/10/24 09:02) Unknown amitriptyline [AMITRIPTYLINE] Adverse Reaction (Intermediate, Verified 10/10/24 09:02) AGITATION atorvastatin Adverse Reaction (Intermediate, Verified 10/10/24 09:02) eye pain erythromycin base [ERYTHROMYCIN BASE] Adverse Reaction (Intermediate, Verified 10/10/24 09:02) NAUSEA gabapentin [GABAPENTIN] Adverse Reaction (Intermediate, Verified 10/10/24 09:02) ANXIETY lisinopril [LISINOPRIL] Adverse Reaction (Intermediate, Verified 10/10/24 09:02) COUGH Medication List - Last Reconciled 10/10/24 by Iris Kelly LPN albuterol sulfate 90 mcg/actuation 2 puffs inhalation Q4H PRN alprazolam 0.5 mg PO Q8H PRN amlodipine 10 mg PO DAILY betamethasone dipropionate 0.05% 1 appl topical BID bupropion HCl XL 300 mg PO QAM buspirone 10 mg PO TID fhiiiemilj-hfygfynttdaod-ymkj 50-325-40 mg 2 tabs PO TID PRN clonidine HCl 0.1 mg PO TID 60 days cyclobenzaprine 10 mg PO DAILY PRN diltiazem HCl CD 120 mg PO DAILY 90 days hydrochlorothiazide 12.5 mg PO DAILY irbesartan 150 mg PO DAILY methylphenidate HCl ER 20 mg PO DAILY montelukast 10 mg PO BEDTIME ondansetron HCl (Zofran) 4 mg PO Q6H PRN paroxetine HCl 30 mg PO QAM paroxetine HCl 30 mg PO DAILY prochlorperazine maleate 10 mg PO DAILY PRN pyridostigmine bromide 60 mg PO TID tramadol 50 mg PO BID PRN HPI HPI Ganglion Impar Block/ ativan: Details: Patient presents for scheduled procedure. Denies any recent cough, cold, infection, fever or other significant changes in medical history since last office visit. [facility] Medical History (Updated 09/06/24 @ 17:02 by Katrina Bae, TENTER FRAME OPERATOR, SCHOOL OCCUPATIONAL THERAPIST) Myasthenia gravis ADHD Hx of anxiety disorder Depression Arthritis Hx of acute pancreatitis Reflex sympathetic dystrophy Migraine Asthma Cardiomyopathy Hypertension Smoking COPD (chronic obstructive pulmonary disease) Cough Surgical History History of endometrial ablation History of nasal surgery History of arthroscopy of left knee History of surgery Hx of cardiac cath H/O lumbar sympathectomy History of appendectomy H/O section Family History Father Cardiomyopathy CHF (congestive heart failure) Mother HTN (hypertension) Angina pectoris Aneurysm Brother Colorectal cancer Brother Rectal polyp Sister Aneurysm Social History (Updated 07/29/22 @ 10:26 by MARGAUX Anderson) Household Members: Spouse Are you a primary long term care phlebotomist to a significant other at home: No Do you presently have visiting nurse or other home services: No Patient Tobacco Use Status: Former Tobacco user Years Smoked: 25 Substance Use Type: Marijuana Current occupational status: disabled 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 The patient was placed in a prone position. The lumbosacral part of the back was prepped with chloraprep twice and draped in the usual sterile fashion. The skin over the area was infiltrated with 0.5% Lidocaine for local anesthesia. A 22 gauge 3.5 inch needle was inserted through the sacrococcygeal ligament under radiographic guidance. Under fluoroscopic guidance the needle was then guided just anterior to the sacrum. Following placement of the needle and negative aspiration, 1-2 ml Omnipaque was used to confirm placement along with AP and lateral views of the needle. During the procedure no evidence of air or blood aspiration was noted, and the patient reported no persistent paresthesias. A total of volume of 3mL ropivacaine 0.25% with Triamcinilone 40 mg was injected. Following the procedure the patient's vital signs were stable and are recorded in the chart for review. The patient was discharged home in good condition after being given discharge instructions. 94298 - Ganglion Impar Procedure code (CPT) selection complete Assessment & Plan Assessment & Plan (1) Coccydynia: Code(s): M53.3 - Sacrococcygeal disorders, not elsewhere classified Category: Medical Plan Patient is status post ganglion of impar block with kenalog. Patient tolerated procedure well and was discharged home in stable condition with discharge instructions. All questions were answered. We will follow-up via telephone or in clinic to assess response to therapy. A follow-up appointment was made during today's visit. Orders: Orders AMB Nerve Block Today Connor Golden MD M53.3 - Sacrococcygeal disorders, not elsewhere classified FL guidance in treatment room Today Katrina Bae APRN, SCHOOL OCCUPATIONAL THERAPIST M53.3 - Sacrococcygeal disorders, not elsewhere classified Coding Level of Care Code Procedure Only Diagnoses Coccydynia M53.3 CPT Codes Nerve Block - Nerve Block 13: 39439 - Ganglion Impar ([id number])
[2024-10-10 09:02] VITALS: BP 119/76; PULSE 76; RESP 16; O2SAT 99
[2024-10-10 09:45] VITALS: BP 131/86; PULSE 79; RESP 16; O2SAT 97
== END 2024-10-10 09:43 | disposition home or self-care (01) ==
LOC: HO.PMCPRC 08:55
PROVIDERS: PCP Internal Medicine; Visit Provider Internal Medicine
DX: M53.3 Sacrococcygeal disorders, not elsewhere classified (principal)
CPT/HCPCS: 64999

== ENCOUNTER 2024-11-01 09:34 | Outpatient (AMB) | payer MEDICARE, SELFPAY ==
--- NOTE | 2024-11-01 09:35 | A.OFFVIS_ITS ---
Vital Signs 11/01/24 09:36 Height 5 ft 4 in Weight 146 lb BMI 25.1 BP 147/79 H Blood Pressure Location Rt brachial Position Sitting Respiration 16 Pulse 75 Pulse Source Pulse Oximeter Pulse Oximetry (%) 99 Oxygen Delivery Method Room Air Intake Visit Reasons: s/p ganglion impar block Weed Cutter Required: No Accompanied by: Self / Same As Patient Allergies chlorthalidone (CHLORTHALIDONE) Allergy (Severe, Verified 11/01/24 09:39) PANCREATITIS carvedilol (CARVEDILOL) Allergy (Intermediate, Verified 11/01/24 09:39) SHORTNESS OF BREATH, sob,elevated bp Sulfa (Sulfonamide Antibiotics) Allergy (Intermediate, Verified 11/01/24 09:39) c-diff topiramate (Topamax) Allergy (Unknown, Verified 11/01/24 09:39) Unknown amitriptyline (AMITRIPTYLINE) Adverse Reaction (Intermediate, Verified 11/01/24 09:39) AGITATION atorvastatin Adverse Reaction (Intermediate, Verified 11/01/24 09:39) eye pain erythromycin base (ERYTHROMYCIN BASE) Adverse Reaction (Intermediate, Verified 11/01/24 09:39) NAUSEA gabapentin (GABAPENTIN) Adverse Reaction (Intermediate, Verified 11/01/24 09:39) ANXIETY lisinopril (LISINOPRIL) Adverse Reaction (Intermediate, Verified 11/01/24 09:39) COUGH HPI Comments Details: The patient is a 59-year-old female presenting with chronic pelvic pain. The pain is nonpositional and affects her ability to stand, sit, or walk, with primary locations in the coccyx and hips, more on the right side. Following a ganglion and bar block procedure on 10/10/2024, the patient experienced initial increased pain, then a 30-40% improvement. However, significant pain persists by the end of the day, necessitating side-lying positions. Physical therapy includes pressure manipulation and strengthening exercises, and a TENS unit is recommended. The patient takes Aleve and Tramadol, with the latter causing constipation, leading to a gastroenterology consultation. - Onset: Persistent pain with no specific inciting event - Quality: Nonpositional pain affecting standing, sitting, and walking - Location: Primarily in the coccyx and hips, more on the right side - Exacerbating factors: Pain increases by the end of the day - Relieving factors: Side-lying position provides some relief - Affect: Pain impacts daily activities and requires positional adjustments - Analgesia: Current medications include Aleve twice daily and Tramadol once or twice daily - Adverse Effects: Tramadol causes constipation - Activities of Daily Living: Pain affects ability to stand, sit, or walk comfortably - Aberrant Drug Related Behaviors: None reported [facility] Medical History (Updated 11/01/24 @ 10:09 by Katrina Bae, PERFORMANCE SPECIALIST, SCHEDULING COORDINATOR) Myasthenia gravis ADHD Hx of anxiety disorder Depression Arthritis Hx of acute pancreatitis Reflex sympathetic dystrophy Migraine Asthma Cardiomyopathy Hypertension Smoking COPD (chronic obstructive pulmonary disease) Cough Surgical History History of endometrial ablation History of nasal surgery History of arthroscopy of left knee History of surgery Hx of cardiac cath H/O lumbar sympathectomy History of appendectomy H/O section Family History Father Cardiomyopathy CHF (congestive heart failure) Mother HTN (hypertension) Angina pectoris Aneurysm Brother Colorectal cancer Brother Rectal polyp Sister Aneurysm Social History (Updated 07/29/22 @ 10:26 by MARGAUX Anderson) Household Members: Spouse Are you a primary patient care technician to a significant other at home: No Do you presently have visiting nurse or other home services: No Patient Tobacco Use Status: Former Tobacco user Years Smoked: 25 Substance Use Type: Marijuana Current occupational status: disabled 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 Answers questions appropriately. Fully engaged in examination. Skin: warm, dry, intact HEENT: Normocephalic. Hearing intact. Cardiac: External chest normal in appearance. Respiratory: No cough, audible wheezing or stridor. Abdomen: without gross distension. MS: No obvious swelling or deformities. Able to transition from sit to stand unassisted. Ambulates with bilaterally normal heel strike and toe off Endorses tenderness to palpation over coccyx Neurological: Oriented to person, place, time and situation. Thought process intact. No gait abnormalities appreciated. Psychiatric: Appropriate mood and affect. Good judgment and insight. Results Reviewed Results Reviewed: 07/2022 XR/XR pelvis 1-2V FINDINGS: Bilateral hip joints and SI joint spaces maintained. The no visible fracture or dislocation seen involving the pelvic bone. Mild pubic symphysitis with hypertrophy is noted. There are surgical meredith in the right mid pelvis and left upper pelvis from previous vascular intervention likely. Otherwise, soft tissues are normal. IMPRESSION: 1. Mild pubic symphysitis. No visible acute fracture or dislocation seen. 2. There are surgical meredith in the right mid pelvis and left upper pelvis from previous vascular intervention. Assessment & Plan Assessment & Plan (1) Coccydynia: Code(s): M53.3 - Sacrococcygeal disorders, not elsewhere classified Category: Medical (2) Chronic pain syndrome: Code(s): G89.4 - Chronic pain syndrome Category: Medical (3) Pain of female symphysis pubis: Code(s): N94.9 - Unspecified condition associated with female genital organs and menstrual cycle Category: Medical Plan I discussed with the patient the current management plan, including the continuation of physical therapy and the use of a TENS unit for pain relief. We reviewed her medication regimen, emphasizing the importance of managing constipation and the role of gastroenterology in this process. I explained the need for an MRI to assess the chronic inflammation in her pelvis and how it might inform future treatment options. Patient was informed and verbally consented to the use of an ambient scribe for clinic note documentation during this visit. Orders: Orders MR pelvis wo con Today G89.4 - Chronic pain syndrome, M53.3 - Sacrococcygeal disorders, not elsewhere classified, N94.9 - Unspecified condition associated with female genital organs and menstrual cycle Patient Instructions: - Continue physical therapy as prescribed. - Use the TENS unit as recommended. - Take Aleve and Tramadol as directed, and monitor for constipation. - Follow up with gastroenterology for constipation management. - Attend the scheduled MRI appointment for further evaluation. Coding Level of Care Code Est Pt Level 3 (02333) Complex EM visit Add On G2211 Diagnoses Coccydynia M53.3 Chronic pain syndrome G89.4 Pain of female symphysis pubis N94.9
[2024-11-01 09:36] VITALS: BP 147/79; PULSE 75; RESP 16; O2SAT 99; BMI 25.1
--- OUTSIDE RECORDS SUMMARY | 2024-11-01 10:01 | XMS_ITS | Clinical Summary ---
Author Organization [facility] ity Address [address] [place] [address] Care Team Providers Care Director Consumer Name Role Phone Unavailable Primary Care Provider [...]
== END 2024-11-01 10:05 | disposition home or self-care (01) ==
LOC: HO.PMC 09:35
PROVIDERS: PCP Internal Medicine; Visit Provider Registered Nurse Emergency
DX: M53.3 Sacrococcygeal disorders, not elsewhere classified (principal); G89.4 Chronic pain syndrome; N94.9 Unspecified condition associated with female genital organs and menstrual cycle
CPT/HCPCS: 99213; G2211

== ENCOUNTER → 2024-11-01 09:34 | Outpatient (BNVA) | payer MEDICARE, SELFPAY | PROVIDERS: PCP Internal Medicine; Visit Provider Registered Nurse Emergency | DX: M53.3 Sacrococcygeal disorders, not elsewhere classified (principal); G89.4 Chronic pain syndrome; N94.9 Unspecified condition associated with female genital organs and menstrual cycle | CPT/HCPCS: 99212 ==

== ENCOUNTER → 2024-11-29 07:11 | Outpatient (BNV) | payer MEDICARE, SELFPAY | PROVIDERS: PCP Internal Medicine; Visit Provider Radiology Diagnostic Radiology | DX: D25.9 Leiomyoma of uterus, unspecified (principal) | CPT/HCPCS: 72195 ==

== ENCOUNTER 2024-11-29 07:14 | Outpatient (REF) | payer MEDICARE, SELFPAY ==
--- NOTE | ~2024-11-29 | MR_ITS ---
EXAMINATION: MR PELVIS WITHOUT IV CONTRAST HISTORY: Sacrococcygeal disorders, coccydynia, pain symphysis pubis. TECHNIQUE: Coronal T1 and STIR, axial T1 and fat-suppressed T2, and sagittal fat-suppressed T2-weighted MR images of the pelvis were obtained. Addition, coronal STIR images of the sacrum were obtained. COMPARISON: Correlation is made with plain films of the pelvis dated 07/29/2022. FINDINGS: There is mild osteoarthritis of the hips with cartilage loss and subchondral marrow changes. Bone marrow signal intensity is otherwise normal. There is moderate degenerative change of the pubic symphysis with cartilage loss and osteophyte formation. The sacroiliac joints are maintained. There is severe degenerative disc disease at L5-S1. The visualized muscles demonstrate normal signal intensity. The urinary bladder is unremarkable. There is a 10 mm uterine fibroid on the right. There is no ascites or pelvic lymphadenopathy. MR/MR pelvis wo con IMPRESSION: 1. Moderate degenerative change of the pubic symphysis. 2. Mild osteoarthritis of the hips. 3. Severe degenerative disc disease at L5-S1. 4. 10 mm uterine fibroid on the right. Electronically signed by: Syd Pickens MD 11/29/2024 08:23 AM EDT
== END 2024-11-29 07:15 | disposition home or self-care (01) ==
LOC: HO.MRI 07:14
PROVIDERS: PCP Internal Medicine; Visit Provider Registered Nurse Emergency
DX: M53.3 Sacrococcygeal disorders, not elsewhere classified (principal); G89.4 Chronic pain syndrome; N94.9 Unspecified condition associated with female genital organs and menstrual cycle
CPT/HCPCS: 72195

== ENCOUNTER 2024-12-06 08:18 | Outpatient (AMB) | payer MEDICARE, SELFPAY ==
--- OUTSIDE RECORDS SUMMARY | 2024-12-06 08:27 | XMS_ITS | Clinical Summary ---
Author Organization [facility] ity Address [address] [place] [address] Care Team Providers Care Guest Services Associate Name Role Phone Unavailable Primary Care Provider [...] Vaccine ( - 2023-2 5 season) 2024 Depression Screening 05/08/2024 Influenza Vaccine (#1) 2025 RSV Immunization Adult Patie nts (1 [...]
[2024-12-06 08:28] VITALS: BP 136/83; PULSE 73; RESP 16; O2SAT 97; BMI 25.1
--- NOTE | 2024-12-06 08:28 | MHC.OFFVIS ---
Vital Signs 12/06/24 08:28 Height 5 ft 4 in Weight 146 lb BMI 25.1 BP 136/83 Blood Pressure Location Rt brachial Position Sitting Respiration 16 Pulse 73 Pulse Source Pulse Oximeter Pulse Oximetry (%) 97 Oxygen Delivery Method Room Air Intake Visit Reasons: MRI Review Implant Polisher Required: No Accompanied by: Self / Same As Patient Allergies chlorthalidone (CHLORTHALIDONE) Allergy (Severe, Verified 12/06/24 08:33) PANCREATITIS carvedilol (CARVEDILOL) Allergy (Intermediate, Verified 12/06/24 08:33) SHORTNESS OF BREATH, sob,elevated bp Sulfa (Sulfonamide Antibiotics) Allergy (Intermediate, Verified 12/06/24 08:33) c-diff topiramate (Topamax) Allergy (Unknown, Verified 12/06/24 08:33) Unknown amitriptyline (AMITRIPTYLINE) Adverse Reaction (Intermediate, Verified 12/06/24 08:33) AGITATION atorvastatin Adverse Reaction (Intermediate, Verified 12/06/24 08:33) eye pain erythromycin base (ERYTHROMYCIN BASE) Adverse Reaction (Intermediate, Verified 12/06/24 08:33) NAUSEA gabapentin (GABAPENTIN) Adverse Reaction (Intermediate, Verified 12/06/24 08:33) ANXIETY lisinopril (LISINOPRIL) Adverse Reaction (Intermediate, Verified 12/06/24 08:33) COUGH HPI Comments Details: The patient is a 59-year-old female presenting for follow up, review of recent MRI. MRI of the pelvis reviewed, results as per below. The degenerative disc disease at L5-S1 is a significant source of her pain, located at the base of her spine and described as severe. The pain has been present for an unspecified duration and is exacerbated by certain movements. Additionally, the patient has a uterine fibroid, which is currently asymptomatic. There is a potential for the fibroid to cause referred pain, possibly affecting her hips, although this has not been confirmed. - Location: Base of the spine - Quality: Severe - Exacerbating factors: Certain movements - Analgesia: Currently using Aleve, also taking tramadol one tablet per day - Activities of Daily Living: Pain impacts daily activities, requiring management with medication Prior: The patient is a 59-year-old female presenting with chronic pelvic pain. The pain is nonpositional and affects her ability to stand, sit, or walk, with primary locations in the coccyx and hips, more on the right side. Following a ganglion and bar block procedure on 10/10/2024, the patient experienced initial increased pain, then a 30-40% improvement. However, significant pain persists by the end of the day, necessitating side-lying positions. Physical therapy includes pressure manipulation and strengthening exercises, and a TENS unit is recommended. The patient takes Aleve and Tramadol, with the latter causing constipation, leading to a gastroenterology consultation. - Onset: Persistent pain with no specific inciting event - Quality: Nonpositional pain affecting standing, sitting, and walking - Location: Primarily in the coccyx and hips, more on the right side - Exacerbating factors: Pain increases by the end of the day - Relieving factors: Side-lying position provides some relief - Affect: Pain impacts daily activities and requires positional adjustments - Analgesia: Current medications include Aleve twice daily and Tramadol once or twice daily - Adverse Effects: Tramadol causes constipation - Activities of Daily Living: Pain affects ability to stand, sit, or walk comfortably - Aberrant Drug Related Behaviors: None reported [facility] Medical History (Updated 12/06/24 @ 09:00 by Katrina Bae APRN, SCRIBING MACHINE OPERATOR) Myasthenia gravis ADHD Hx of anxiety disorder Depression Arthritis Hx of acute pancreatitis Reflex sympathetic dystrophy Migraine Asthma Cardiomyopathy Hypertension Smoking COPD (chronic obstructive pulmonary disease) Cough Surgical History History of endometrial ablation History of nasal surgery History of arthroscopy of left knee History of surgery Hx of cardiac cath H/O lumbar sympathectomy History of appendectomy H/O section Family History Father Cardiomyopathy CHF (congestive heart failure) Mother HTN (hypertension) Angina pectoris Aneurysm Brother Colorectal cancer Brother Rectal polyp Sister Aneurysm Social History (Updated 07/29/22 @ 10:26 by MARGAUX Anderson) Household Members: Spouse Are you a primary customer care representative to a significant other at home: No Do you presently have visiting nurse or other home services: No Patient Tobacco Use Status: Former Tobacco user Years Smoked: 25 Substance Use Type: Marijuana Current occupational status: disabled 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 Answers questions appropriately. Fully engaged in examination. Skin: warm, dry, intact HEENT: Normocephalic. Hearing intact. Cardiac: External chest normal in appearance. Respiratory: No cough, audible wheezing or stridor. Abdomen: without gross distension. MS: No obvious swelling or deformities. Able to transition from sit to stand unassisted. Ambulates with bilaterally normal heel strike and toe off Neurological: Oriented to person, place, time and situation. Thought process intact. No gait abnormalities appreciated. Psychiatric: Appropriate mood and affect. Good judgment and insight. Vital Signs: Last Vital Signs Pulse 73 12/06/24 08:28 Resp 16 12/06/24 08:28 BP 136/83 12/06/24 08:28 Pulse Ox 97 12/06/24 08:28 Oxygen Delivery Method Room Air 12/06/24 08:28 BMI result Body Mass Index 25.1 Results Reviewed Results Reviewed: 11/29/24 MR/MR pelvis wo con FINDINGS: There is mild osteoarthritis of the hips with cartilage loss and subchondral marrow changes. Bone marrow signal intensity is otherwise normal. There is moderate degenerative change of the pubic symphysis with cartilage loss and osteophyte formation. The sacroiliac joints are maintained. There is severe degenerative disc disease at L5-S1. The visualized muscles demonstrate normal signal intensity. The urinary bladder is unremarkable. There is a 10 mm uterine fibroid on the right. There is no ascites or pelvic lymphadenopathy. IMPRESSION: 1. Moderate degenerative change of the pubic symphysis. 2. Mild osteoarthritis of the hips. 3. Severe degenerative disc disease at L5-S1. 4. 10 mm uterine fibroid on the right. 07/2022 XR/XR pelvis 1-2V FINDINGS: Bilateral hip joints and SI joint spaces maintained. The no visible fracture or dislocation seen involving the pelvic bone. Mild pubic symphysitis with hypertrophy is noted. There are surgical meredith in the right mid pelvis and left upper pelvis from previous vascular intervention likely. Otherwise, soft tissues are normal. IMPRESSION: 1. Mild pubic symphysitis. No visible acute fracture or dislocation seen. 2. There are surgical meredith in the right mid pelvis and left upper pelvis from previous vascular intervention. Assessment & Plan Assessment & Plan (1) Coccydynia: Code(s): M53.3 - Sacrococcygeal disorders, not elsewhere classified Category: Medical (2) Chronic pain syndrome: Code(s): G89.4 - Chronic pain syndrome Category: Medical (3) Pain of female symphysis pubis: Code(s): N94.9 - Unspecified condition associated with female genital organs and menstrual cycle Category: Medical (4) Lumbar spondylosis: Code(s): M47.816 - Spondylosis without myelopathy or radiculopathy, lumbar region Category: Medical (5) Degenerative disc disease, lumbar: Code(s): M51.369 - Other intervertebral disc degeneration, lumbar region without mention of lumbar back pain or lower extremity pain Category: Medical Plan The plan involves diagnostic injections to the joints in the back to address pain from degenerative disease. Facet blocks will be used to assess pain relief, utilizing numbing agents instead of steroids. Ativan will be prescribed for anxiety management during the procedure, with instructions for pharmacy pickup. The procedure will include six injections to numb the joints on both sides of the spine, conducted under sterile conditions. Will schedule for fluoroscopy guided diagnostic bilateral L3-L4 DR L5 medial branch blocks with local anesthetic. Ativan will be sent to pharmacy for patient to take 30 minutes prior to arrival for the procedure. Patient was informed and verbally consented to the use of an ambient scribe for clinic note documentation during this visit. Patient Instructions: - Obtain Ativan from the pharmacy for the procedure. - Attend the scheduled procedure for diagnostic injections. - Follow up with [facility] as scheduled for Tramadol management Coding Level of Care Code Est Pt Level 3 (96670) Complex EM visit Add On G2211 Diagnoses Coccydynia M53.3 Chronic pain syndrome G89.4 Pain of female symphysis pubis N94.9 Lumbar spondylosis M47.816 Degenerative disc disease, lumbar M51.369
== END 2024-12-06 08:53 | disposition home or self-care (01) ==
LOC: HO.PMC 08:19
PROVIDERS: PCP Internal Medicine; Visit Provider Registered Nurse Emergency
DX: M53.3 Sacrococcygeal disorders, not elsewhere classified (principal); G89.4 Chronic pain syndrome; N94.9 Unspecified condition associated with female genital organs and menstrual cycle; M47.816 Spondylosis without myelopathy or radiculopathy, lumbar region; M51.369 Other intervertebral disc degeneration, lumbar region without mention of lumbar back pain or lower extremity pain
CPT/HCPCS: 99213; G2211

== ENCOUNTER → 2024-12-06 08:18 | Outpatient (BNVA) | payer MEDICARE, SELFPAY | PROVIDERS: PCP Internal Medicine; Visit Provider Registered Nurse Emergency | DX: Z71.2 Person consulting for explanation of examination or test findings (principal); M53.3 Sacrococcygeal disorders, not elsewhere classified; M47.816 Spondylosis without myelopathy or radiculopathy, lumbar region; M51.369 Other intervertebral disc degeneration, lumbar region without mention of lumbar back pain or lower extremity pain; N94.9 Unspecified condition associated with female genital organs and menstrual cycle | CPT/HCPCS: 99212 ==

== ENCOUNTER 2025-01-09 06:23 | Outpatient (REF) | payer MEDICARE, SELFPAY ==
--- NOTE | ~2025-01-09 | FL_ITS ---
EXAMINATION: XR FLUOROSCOPY WITH IMAGES CLINICAL INFORMATION: Lumbar pain management COMPARISON: None available. TECHNIQUE: Fluoroscopy provided to: Dr. Golden Fluoroscopy time: 0.2 minutes DAP: 0.0326 mGycm2 Images: 2 FINDINGS: 2 fluoroscopic spot images obtained during lumbar pain management procedure. Please refer to the full operative report for details. FL/FL guidance in treatment room IMPRESSION: Fluoroscopic guidance. Electronically signed by: Theodore Taylor MD 01/09/2025 01:59 PM EDT
--- OUTSIDE RECORDS SUMMARY | 2025-01-09 06:27 | XMS_ITS | Encounter Summary ---
Author Organization [facility] Address [address] [employer] [facility] [address] [place] [address] Phone Care Team Providers Care Deputy Building Guard Name Role Phone Charo Siu SERVICE DIRECTOR Primary Care Provider [phone] Kyle Becerra MD Unavailable [phone] Sussy Walters RN Unavailable [phone] Charo Siu SERVICE DIRECTOR Primary Care Provider [phone] Kyle Becerra MD Unavailable [phone] Philippe Torres CNP Primary Care Provider [phone] Jaun Yarbrough MD Primary Care Provider [phone] Reason for Referral * MRI/CAT Scan - Closed Specialty Diagnoses / Procedures Referred By Contac t Referred To Contact Procedures MRI Brain Outside (No Interpretation) System, Provider Not In, [facility] [address] [address] Referral ID Status Reason Start Date Expiration Date Visits Re quested Visits Authorized [id number] Closed 08/17/2018 08/17/2019 1 1 Encounter Details Date Type Department Care Team (Late st Contact Info) Description 08/17/2018 Ancillary Orders [facility],Outside Imaging [address] [place] [address] System, Provider Not In, [facility] [address] [address] Social History Tobacco Use Types Packs/Day Years Used Date Smoking Tobacco: Former Cigarettes 0.3 22 1 05/12/1995 - 03/12/2018 Smokeless Tobacco: Never Comments:1 cigarette daily Alcohol Use Standard Drinks/Week Comments Yes 0 (1 standard drink = 0.6 oz pur e alcohol) once every few months Comments Unknown Sex and Gender Information Value Date Recorded Sex Assigned at Not on file Legal Sex Female 10:34 PM EDT Gender Identity Not on file Sexual Orientation Not on file documented as of this encounter Plan of Treatment Upcoming Encounters Date Type Department Care Team (Late st Contact Info) Description 01/15/2025 8:30 AM EDT Office Visit [facility] Orthopedics & Sports Medicine [address] [place] [address] Freddy Garcia DO [address] [place] [address] Orthopedics & Sports Medicine, [place] [address] 04/11/2025 8:00 AM EST Office Visit [address] [place] [address] Jaun Yarbrough MD [address] [place] [address], [address] [place] [address] 08/06/2025 7:30 AM EDT Office Visit [facility] [address] [place] [address] [address]rd Floor, [address] [place] [address] Celia Collier DNP [address] [place] [address], [address] [place] [address] 09/01/2025 9:30 AM EDT Office Visit [facility] Neurology [address] [place] [address] [place] [address] Joe Hill MD [address] [place] [address], [address] [place] [address] 11/06/2025 8:40 AM EDT Office Visit [facility] [place] [address] Erin Patel MD, MPH [address] [facility], [address] [place] [address] [email or web address] documented as of this encounter Results * MRI Brain Outside (No Interpretation) (06/29/2018 12:00 AM EST) Narrative SYSTEMGENERATED, DOCUMENTATION - 08/17/2018 2:52 PM EDT This study is for PACS storage only and not for interpretation. us Provider Not In System PhD [facility] OUTSIDE IMAGING W /OUT INTERPRETATION Final Result documented in this encounter Visit Diagnoses Not on filedocumented in this encounter Additional Health Concerns Infection Onset Date Last Indicated Resolved Time CoV-Risk Comment:Per Ambulatory Triage Form 04/26/2021 04/26/202105/06 1:22 AM EST COVID-19 05/26/2021 05/26/2021 06/16/2021 1:24 AM EST Assessment Noted Time PHQ-2 Depression Total Score: 0 07/04/19 19 10:34 AM EST documented as of this encounter Care Teams Deputy Building Guard Relationship Specialty Start Date End Date Charo Siu NP PCP - General 03/22/17 05/28/19 Charo Siu NP PCP - General Family Medicine 05/29/19 07/11/23 Philippe Torres CNP [address] [place] [address], [address] [place] [address] PCP - General Adult Health 07/12/23 07/16/23 Jaun Yarbrough MD [address] [place] [address], [address] [place] [address] [email or web address] PCP - General Internal Medicine 07/17/23 Kyle Becerra MD [address] [place] [address] [email or web address] Insurance Assigned Provider 08/05/17 11/17/18 Sussy Walters, BONITA [address] [place] [address] [email or web address] Air Press Operator 12/13/18 12/16/18 Kyle Becerra MD [address] [place] [address] Insurance Assigned Provider 08/14/19 05/15/21 documented as of this encounter Additional Source Comments The information contained in this document represents components of the legal health record. It is not the complete legal health record.[facility]
--- OUTSIDE RECORDS SUMMARY | 2025-01-09 06:27 | XMS_ITS | Encounter Summary ---
Author Organization [facility] Address [address] [facility] [address] [place] [address] Phone Care Team Providers Care Contact Center Team Lead Name Role Phone Charo Siu PROGRAM COORDINATOR EXECUTIVE EDUCATION Primary Care Provider [phone] Kyle Becerra MD Unavailable [phone] Sussy Walters RN Unavailable [phone] Charo Siu PROGRAM COORDINATOR EXECUTIVE EDUCATION Primary Care Provider [phone] Kyle Becerra MD Unavailable [phone] Philippe Torres CNP Primary Care Provider [phone] Jaun Yarbrough MD Primary Care Provider [phone] Encounter Details Date Type Department Care Team (Late st Contact Info) Description 08/17/2018 Procedure [facility],Outside Imaging [address] [place] [address] Social History Tobacco Use Types Packs/Day Years Used Date Smoking Tobacco: Former Cigarettes 0.3 22 1 05/12/1995 - 03/12/2018 Smokeless Tobacco: Never Alcohol Use Standard Drinks/Week Comments Yes 0 (1 standard drink = 0.6 oz pur e alcohol) socially Comments Unknown Sex and Gender Information Value Date Recorded Sex Assigned at Not on file Legal Sex Female 10:34 PM EDT Gender Identity Not on file Sexual Orientation Not on file documented as of this encounter Plan of Treatment Upcoming Encounters Date Type Department Care Team (Late st Contact Info) Description 01/15/2025 8:30 AM EDT Office Visit [facility] Orthopedics & Sports Medicine [address] [place] [address] Freddy Garcia DO [address] [place] [address] Orthopedics & Sports Medicine, [place] [address] 04/11/2025 8:00 AM EST Office Visit [facility] Family Medicine [address] [place] [address] [place] [address] Jaun Yarbrough MD [address] [place] [address], [address] [place] [address] 08/06/2025 7:30 AM EDT Office Visit [facility] [address] [place] [address] [address]rd Floor, [address] [place] [address] Celia Collier DNP [address] [place] [address], [address] [place] [address] 09/01/2025 9:30 AM EDT Office Visit [facility] Neurology [address] [place] [address] Joe Hill MD [address] [place] [address], [address] [place] [address] 11/06/2025 8:40 AM EDT Office Visit [facility] Rheumatology [address] [place] [address] [place] [address] Erin Patel MD, MPH [address] [place] [address], [address] [place] [address] documented as of this encounter Visit Diagnoses Not on filedocumented in this encounter Additional Health Concerns Infection Onset Date Last Indicated Resolved Time CoV-Risk Comment:Per Ambulatory Triage Form 04/26/2021 04/26/202105/06 1:22 AM EST COVID-19 05/26/2021 05/26/2021 06/16/2021 1:24 AM EST Assessment Noted Time PHQ-2 Depression Total Score: 0 06/12/19 10:48 AM EST documented as of this encounter Care Teams Contact Center Team Lead Relationship Specialty Start Date End Date Charo Siu, PROGRAM COORDINATOR EXECUTIVE EDUCATION PCP - General 03/22/17 05/28/19 Charo Siu, PROGRAM COORDINATOR EXECUTIVE EDUCATION PCP - General Family Medicine 05/29/19 07/11/23 Philippe Torres CNP [address] [place] [address], [address] [place] [address] PCP - General Adult Health 07/12/23 07/16/23 Jaun Yarbrough MD [address] [place] [address], [address] [address] [email or web address] PCP - General Internal Medicine 07/17/23 Kyle Becerra MD [address] [place] [address] Insurance Assigned Provider 08/05/17 11/17/18 Sussy Walters, BONITA [address] [place] [address] [email or web address] Medical Dermatologist 12/13/18 12/16/18 Kyle Becerra MD [address] [place] [address] [email or web address] Insurance Assigned Provider 08/14/19 05/15/21 documented as of this encounter Additional Source Comments The information contained in this document represents components of the legal health record. It is not the complete legal health record.[facility]
--- OUTSIDE RECORDS SUMMARY | 2025-01-09 06:27 | XMS_ITS | Patient Health Record ---
Author [facility] Address [address] [place] [address] Care Team Providers Care Senior Trainer Name Role Phone Jaun Yarbrough Primary Care Provider Bethany Dodd Unavailable [phone] Allergies Allergen (clinical drug ingredient) Drug/Non Drug Allergy documented on EMR Reaction Allergy Type Onset Date Status adhesive tape (uncoded) irritated skin Allergy Active general/spinal (uncoded) Unknown Allergy Active amitriptyline Amitriptyline HCl anxiety Drug Allergy Active sulfamethoxazole / trimethoprim Bactrim c diff Drug Allergy Active Biaxin Nausea Drug Allergy Active Cortisone retinal edema Drug Allergy Act yohana azithromycin Azithromycin Nausea Drug Allergy A ctive erythromycin Erythromycin Nausea Drug Allergy A ctive Reason For Referral No Information Medications Medication SIG (Take, Route, Frequency, Duration) Notes Start Date End Date Status Lwcvhjqvxj-CAJW-Cutgbery 50-325-40 MG Oral; Duration: 15 Days Active Methylphenidate HCl ER 20 MG Oral; Durat ion: 30 Days Active Breo Ellipta 100-25 MCG/ACT Inhalation; Duration: 90 Days Active dilTIAZem HCl ER Coated Bead s 120 MG Oral; Duration: 90 Days Active hydroCHLOROthiazide 12.5 MG Oral; Durati on: 90 Days Active Albuterol Sulfate HFA 108 (9 0 Base) MCG/ACT Inhalation; Duration: 17 Days Active ALPRAZolam 0.5 MG Oral; Duration: 30 Days Active Methylphenidate HCl 10 MG Oral; Duration : 30 Days Active Ondansetron 4 MG Oral; Duration: 10 Days Active Immunizations Vaccine Route Administration Date Status Comme nts Influenza Unknown 02/22/2024 Administered Social History Tobacco Use: Social History Observation Description Date Details (start date - stop date) Never Smoker NA - NA Tobacco use other than smoking: Question Answer Notes Are you an other tobacco user? No Tobacco Control (Standard) Question Answer Notes Tobacco use: Nonsmoker Additional Findings: Tobacco non-user Current no nsmoker AUDIT-C (Standard) Question Answer Notes Did you have a drink containing alcohol in the p ast year? No Points 0 Interpretation Negative Problems Problem Type SNOMED Code ICD Code Onset Dates Problem Status W/U Status Risk Notes Problem Acquired hallux valgus (25148760) Hallux valgus (acquired), right foot (M20.11) Active confirmed Problem Acute gout (149486665) 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) Active confirmed Vital Signs Blood pressure diastolic 84 mm Hg 11/19/2024 Height 5ft 4in in 11/19/2024 Blood pressure systolic 120 mm Hg 11/19/2024 Weight 148 lbs 11/19/2024 BMI 25.4 kg/m2 11/19/2024 Encounters Encounter Location Date Provider Diagnosis [facility] [address] [address] 11/19/2024 Bethany Perica Pain in right foot M79.671 ; Hallux valgus (acquired), right foot M20.11 ; Pain in right ankle and joints of right foot M25.571 ; Bursitis of right foot M77.51 and Gouty arthritis of right foot M10.9 Assessments Encounter Date Diagnosis (ICD Code) Assessment Notes Treatment Notes Treatment Clinical Notes Section Notes 11/19/2024 Pain in right foot (ICD-10 - M79.671) 11/19/2024 Hallux valgus (acquired), right foot (ICD-10 - M20.11) 11/19/2024 Pain in right ankle and joints of right foot (ICD-10 - M25.571) 11/19/2024 Bursitis of right foot (ICD-10 - M77.51) 11/19/2024 Gouty arthritis of right foot (ICD-10 - M10.9) Plan Of Treatment Pending Test Test Name Order Date X ray : Foot, right 3V 11/19/2024 Insurance Providers Payer Name Payer Address Payer Phone Subscriber Number Group Number Insured Name Patient Relationship to Insured Coverage Start Date Coverage End Date [employer] 65 Medicare Preferred [address] [place] [address] [phone] [id number] Emelia Gallardo Self - patient is the insured Medical (General) History Medical History History ICD Code Anxiety Arthritis asthma Back,Hip,and Knee pain Broken bones Cataracts covid-19 Depression Headaches/Migraines High Blood Pressure Nerve disease Neuropathy Psoriasis/eczema Sciatica Chicken pox Surgical History Surgery Date(Month/Year) rotator cuff tear repair rsv left foot left knee
--- OUTSIDE RECORDS SUMMARY | 2025-01-09 06:27 | XMS_ITS | Encounter Summary ---
Author Organization [facility] Address [address] [facility] [address] [place] [address] Phone Care Team Providers Care Resource Recovery Specialist Name Role Phone Charo Siu AUDITING CLERK Primary Care Provider [phone] Kyle Becerra MD Unavailable [phone] Sussy Walters RN Unavailable [phone] Charo Siu AUDITING CLERK Primary Care Provider [phone] Kyle Becerra MD Unavailable [phone] Philippe Torres CNP Primary Care Provider [phone] Jaun Yarbrough MD Primary Care Provider [phone] Encounter Details Date Type Department Care Team (Late st Contact Info) Description 08/17/2018 Procedure Pass [facility],Outside Imaging [address] [place] [address] Social History Tobacco Use Types Packs/Day Years [...] Description 01/15/2025 8:30 AM EDT Office Visit [facility] Orthopedics & Sports Medicine [address] [place] [address] Freddy Garcia DO [address] [place] [address] Orthopedics & Sports Medicine, [place] [address] 04/11/2025 8:00 AM EST Office Visit [facility] Family Medicine [address] [place] [address] [place] [address] Jaun Yarbrough MD [address] [place] [address], [address] [place] [address] 08/06/2025 7:30 AM EDT Office Visit [facility] [address] [place] [address] 3rd Floor, [address] [place] [address] Celia Collier DNP [address] [place] [address], [address] [place] [address] 09/01/2025 9:30 AM EDT Office Visit [facility] Neurology [address] [place] [address] Joe Hill MD [address] [place] [address], 2nd [place] [address] 11/06/2025 8:40 AM EDT Office Visit [facility] Rheumatology [address] [place] [address] [place] [address] Erin Patel MD, MPH [address] [place] [address], [address] [place] [address] documented as of this encounter Visit Diagnoses Not on filedocumented in this encounter Additional Health Concerns Infection Onset Date Last Indicated Resolved Time CoV-Risk Comment:Per Ambulatory Triage Form 04/26/2021 04/26/202105/06 1:22 AM EST COVID-19 05/26/2021 05/26/2021 06/16/2021 1:24 AM EST Assessment Noted Time PHQ-2 Depression Total Score: 0 06/12/19 10:48 AM EST documented as of this encounter Care Teams Resource Recovery Specialist Relationship Specialty Start Date End Date Charo Siu, AUDITING CLERK PCP - General 03/22/17 05/28/19 Charo Siu, AUDITING CLERK PCP - General Family Medicine 05/29/19 07/11/23 Philippe Torres CNP [address] [place] [address], [address] [place] [address] PCP - General Adult Health 07/12/23 07/16/23 Jaun Yarbrough MD [address] [place] [address], [address] [address] [email or web address] PCP - General Internal Medicine 07/17/23 Kyle Becerra MD [address] [place] [address] Insurance Assigned Provider 08/05/17 11/17/18 Sussy Walters, BONITA [address] [place] [address] [email or web address] Avid Editor 12/13/18 12/16/18 Kyle Becerra MD [address] [place] [address] [email or web address] Insurance Assigned Provider 08/14/19 05/15/21 documented as of this encounter Additional Source Comments The information contained in this document represents components of the legal health record. It is not the complete legal health record.[facility]
--- OUTSIDE RECORDS SUMMARY | 2025-01-09 06:28 | XMS_ITS | Encounter Summary ---
Author Organization [facility] Address [address] [facility] [address] [place] [address] Phone Care Team Providers Care Baggage Clerk Name Role Phone Charo Siu NP Primary Care Provider [phone] Kyle Becerra MD Unavailable [phone] Philippe Torers CNP Primary Care Provider [phone] Jaun Yarbrough MD Primary Care Provider [phone] Encounter Details Date Type Department Care Team (Late st Contact Info) Description 06/24/[address] [facility], [address] [id number] Social History Tobacco Use Types Packs/Day Years Used Date Smoking Tobacco: Former Cigarettes 0.3 22 0 12/05/1997 - 12/06/2019 Smokeless Tobacco: Never Comments:3-5 daily Alcohol Use Standard Drinks/Week Comments Yes 0 (1 standard drink = 0.6 oz pur e alcohol) once every few months Comments No Sex and Gender Information Value Date Recorded Sex Assigned at Not on file Legal Sex Female 10:34 PM EDT Gender Identity Not on file Sexual Orientation Not on file documented as of this encounter Last Filed Vital Signs Vital Sign Reading Time Taken Comments Blood Pressure - - Pulse - - Temperature - - Respiratory Rate - - Oxygen Saturation - - Inhaled Oxygen Concentration - - Weight 66.2 kg (146 lb) 06/26/2020 10:29 AM EST Height 165.1 cm (5' 5 ) 06/26/2020 10:29 AM EST Body Mass Index 24.3 06/26/2020 10:29 AM EST documented in this encounter Plan of Treatment Upcoming Encounters Date Type Department Care Team (Late st Contact Info) Description 01/15/2025 8:30 AM EDT Office Visit [facility] Orthopedics & Sports Medicine [address] [place] [address] Freddy Garcia DO [address] [place] [address] Orthopedics & Sports Medicine, [facility] [place] [address] 04/11/2025 8:00 AM EST Office Visit [address] [place] [address] Jaun Yarbrough MD [address] [place] [address], [address] [place] [address] 08/06/2025 7:30 AM EDT Office Visit [facility] [address] [place] [address] 3rd Floor, [address] [place] [address] Celia Collier, ANTHONY [address] [place] [address], [address] [place] [address] 09/01/2025 9:30 AM EDT Office Visit [facility] Neurology [address] [place] [address] [place] [address] Joe Hill MD [address] [place] [address], 2nd [place] [address] 11/06/2025 8:40 AM EDT Office Visit [facility] Rheumatology [address] [place] [address] [place] [address] Erin Patel MD, MPH [address] [place] [address], [address] [place] [address] documented as of this encounter Visit Diagnoses Not on filedocumented in this encounter Additional Health Concerns Infection Onset Date Last Indicated Resolved Time CoV-Risk Comment:Per Ambulatory Triage Form 04/26/2021 04/26/202105/06 1:22 AM EST COVID-19 05/26/2021 05/26/2021 06/16/2021 1:24 AM EST Assessment Noted Time PHQ-9 Depression Total Score: 8 02/21/20 11:39 AM EDT PHQ-2 Depression Total Score: 4 02/21/20 11:39 AM EDT documented as of this encounter Care Teams Baggage Clerk Relationship Specialty Start Date End Date Charo Siu NP PCP - General Family Medicine 05/29/19 07/11/23 Philippe Torres CNP [address] [place] [address], [address] [address] PCP - General Adult Health 07/12/23 07/16/23 Jaun Yarbrough MD [address] [place] [address], [address] [address] PCP - General Internal Medicine 07/17/23 Kyle Becerra MD [address] [place] [address] Insurance Assigned Provider 08/14/19 05/15/21 documented as of this encounter Additional Source Comments The information contained in this document represents components of the legal health record. It is not the complete legal health record.[facility]
--- OUTSIDE RECORDS SUMMARY | 2025-01-09 06:28 | XMS_ITS | Clinical Summary ---
Author Organization [facility] Address [address] [place] [address] Care Team Providers Care Mangle Press Catcher Name Role Phone Unavailable Primary Care Provider [...]
--- OUTSIDE RECORDS SUMMARY | 2025-01-09 06:28 | XMS_ITS | Encounter Summary ---
Author Organization [facility] Address [address] [place] [address] Phone Care Team Providers Care Armed Custom Protection Officer Name Role Phone Charo Siu NP Primary Care Provider [phone] Philippe Torres CNP Primary Care Provider [phone] Jaun Yarbrough MD Primary Care Provider [phone] Encounter Details Date Type Department Care Team (Late st Contact Info) Description 06/12/2023 Procedure Pass [facility] [address] [place], [place] [id number] Social History Tobacco Use Types Packs/Day Years Used Date Smoking Tobacco: Former Cigarettes 0.3 22 0 12/05/1997 - 12/06/2019 Smokeless Tobacco: Never Comments:3-5 daily Alcohol Use Standard Drinks/Week Comments Yes 0 (1 standard drink = 0.6 oz pur e alcohol) 1-2 drinks, 2 x year Child or Family Care Answer Date Record ed Do you have problems with on e of the following making it difficult for you to work, study, or receive health care? No 05/28/2021 Education Answer Date Recorded Are you interested in more education? Not on atul e 05/30/2023 Are you concerned about learning? Not on file 05/30/2023 No 05/30/2023 No 05/30/2023 Food Answer Date Recorded Within the past 6 months we worried whether our food would run out before we got money to buy more. Never True 05/28/2021 Within the past 6 months the food we bought just didn't last and we didn't have enough money to get more. Never True Residential Stability Answer Date Recor ded What is your housing situation today? I have niurka fernandez 05/28/2021 How many times have you move d in the past 12 months? Zero (I did not move) 05/28/2021 Paying for Meds Answer Date Recorded Do you have trouble paying for medicines? No 05/28/2021 Paying Utility Bills Answer Date Record ed Do you have trouble paying your heating or elect ricity bill? No 05/28/2021 Transportation Answer Date Recorded Has the lack of transportati on kept you from medical appointments or from getting medications? No 05/28/2021 Unemployment Answer Date Recorded Are you currently unemployed or working on a part-time or temporary basis, and looking for work? No 05/28/2021 Digital Access Answer Date Recorded No 09/28/2022 No 09/28/2022 Reliable internet access at home? Not on file 09/28/2022 Device with a working camera? Not on file Comments No Sex and Gender Information Value Date Recorded Sex Assigned at Not on file Legal Sex Female 10:34 PM EDT Gender Identity Not on file Sexual Orientation Not on file documented as of this encounter Plan of Treatment Upcoming Encounters Date Type Department Care Team (Late st Contact Info) Description 01/15/2025 8:30 AM EDT Office Visit [facility] Orthopedics & Sports Medicine [address] [place] [address] Freddy Garcia DO [address] [place] [address] Orthoped[facility] [place] [address] 04/11/2025 8:00 AM EST Office Visit [facility] Family Medicine [address] [place] [address] [place] [address] Jaun Yarbrough MD [address] [facility], [address] [place] [address] 08/06/2025 7:30 AM EDT Office Visit [facility] [address] 3rd Floor, [address] [place] [address] Celia Collier, ANTHONY [address] [facility], [address] [place] [address] [email or web address] 09/01/2025 9:30 AM EDT Office Visit [facility] Neurology [address] [place] [address] Joe Hill MD 22 [facility], 2nd [place] [address] [email or web address] 11/06/2025 8:40 AM EDT Office Visit [facility] Rheumatology [address] [place] [address] Erin Patel MD, MPH [address] [facility], [facility] [address] [place] [address] [email or web address] documented as of this encounter Visit Diagnoses Not on filedocumented in this encounter Additional Health Concerns Assessment Noted Time PHQ-9 Depression Total Score: 8 02/21/20 20 11:39 AM EDT PHQ-2 Depression Total Score: 0 01/25/20 23 12:09 PM EDT documented as of this encounter Care Teams Armed Custom Protection Officer Relationship Specialty Start Date End Date Charo Siu NP PCP - General Family Medicine 05/29/19 07/11/23 Philippe Torres CNP [address] [place] [address], [address] [place] [address] PCP - General Adult Health 07/12/23 07/16/23 Jaun Yarbrough MD [address] [place] [address], [address] [place] [address] [email or web address] PCP - General Internal Medicine 07/17/23 documented as of this encounter Additional Source Comments The information contained in this document represents components of the legal health record. It is not the complete legal health record.[facility]
--- OUTSIDE RECORDS SUMMARY | 2025-01-09 06:28 | XMS_ITS | Encounter Summary ---
Author Organization [facility] Address [address] [place] [address] Phone Care Team Providers Care Alcoholism Worker Name Role Phone Charo Siu NP Primary Care Provider [phone] Philippe Torres CNP Primary Care Provider [phone] Jaun Yarbrough MD Primary Care Provider [phone] Encounter Details Date Type Department Care Team (Late st Contact Info) Description 10/27/2021 Procedure Pass [facility], [address] [id number] Social History Tobacco Use Types Packs/Day Years Used Date Smoking Tobacco: Former Cigarettes 0.3 22 0 12/05/1997 - 12/06/2019 Smokeless Tobacco: Never Comments:3-5 daily Alcohol Use Standard Drinks/Week Comments Yes 0 (1 standard drink = 0.6 oz pure alcohol) 3 hard seltzer a year during holiday gatherings Child or Family Care Answer Date Record ed Do you have problems with on e of the following making it difficult for you to work, study, or receive health care? No 05/28/2021 Education Answer Date Recorded Are you interested in help w ith more adult education (for example, completing high school, GED, job training, learning the Spanish language, technical skills, or developing parenting skills)? No 05/28/2021 Food Answer Date Recorded Within the past [...] basis, and looking for work? No 05/28/2021 Comments No Sex and Gender Information Value Date Recorded Sex Assigned at Not on file Legal Sex Female 10:34 PM EDT Gender Identity Not on file Sexual Orientation Not on file documented as of this encounter Plan of Treatment Upcoming Encounters Date Type Department Care Team (Late st Contact Info) Description 01/15/2025 8:30 AM EDT Office Visit [facility] Orthopedics & Sports Medicine [address] [place] [address] Freddy Garcia DO [address] [place] [address] Orthopedics & Sports Medicine, [facility] [place] [address] 04/11/2025 8:00 AM EST Office Visit [facility] Family Medicine [address] [place] [address] [place] [address] Jaun Yarbrough MD 22 [facility], [address] [place] [address] 08/06/2025 7:30 AM EDT Office Visit [facility] [address] [place] [address] 3rd Floor, [address] [place] [address] Celia Collier DNP [address] [place] [address], [address] [place] [address] 09/01/2025 9:30 AM EDT Office Visit [facility] Neurology [address] [place] [address] Joe Hill MD 22 [facility], 2nd [place] [address] 11/06/2025 8:40 AM EDT Office Visit [facility] Rheumatology [address] [place] [address] Erin Patel MD, MPH [address] [place] [address], [address] [place] [address] [email or web address] documented as of this encounter Visit Diagnoses Not on filedocumented in this encounter Additional Health Concerns Assessment Noted Time PHQ-9 Depression Total Score: 8 02/21/20 20 11:39 AM EDT PHQ-2 Depression Total Score: 0 09/11/19 22 1:15 PM EDT documented as of this encounter Care Teams Alcoholism Worker Relationship Specialty Start Date End Date Charo Siu NP PCP - General Family Medicine 05/29/19 07/11/23 Philippe Torres CNP [address] [place] [address], [address] [place] [address] PCP - General Adult Health 07/12/23 07/16/23 Jaun Yarbrough MD [address] [place] [address], [address] [place] [address] PCP - General Internal Medicine 07/17/23 documented as of this encounter Additional Source Comments The information contained in this document represents components of the legal health record. It is not the complete legal health record.[facility]
--- OUTSIDE RECORDS SUMMARY | 2025-01-09 06:28 | XMS_ITS | Encounter Summary ---
Author Organization [facility] Address [address] [place] [address] Phone Care Team Providers Care Director Transportation Name Role Phone Charo Siu NP Primary Care Provider [phone] Philippe Torres CNP Primary Care Provider [phone] Jaun Yarbrough MD Primary Care Provider [phone] Encounter Details Date Type Department Care Team (Late st Contact Info) Description 02/01/2023 Procedure Pass [facility], [facility] Scan - [address] [address] Social History Tobacco Use Types Packs/Day Years [...] high school, GED, job training, learning the Croatian language, technical skills, or developing parenting skills)? [...] Description 01/15/2025 8:30 AM EDT Office Visit [facility] Orthopedics & Sports Medicine [address] [place] [address] Freddy Garcia DO [address] [place] [address] Orth[facility] [address] 04/11/2025 8:00 AM EST Office Visit [address] [place] [address] Jaun Yarbrough MD [address] [place] [address], [address] [place] [address] 08/06/2025 7:30 AM EDT Office Visit [facility] [address] [place] [address] Dr 3rd Floor, [address] [place] [address] Celia Collier, ANTHONY 22 [facility], [address] [place] [address] 09/01/2025 9:30 AM EDT Office Visit [facility] Neurology [address] [place] [address] Joe Hill MD [address] [place] [address], 2nd [place] [address] [email or web address] 11/06/2025 8:40 AM EDT Office Visit [facility] Rheumatology [address] [place] [address] Erin Patel MD, MPH [address] [place] [address], [address] [place] [address] [email or web address] documented as of this encounter Visit Diagnoses Not on filedocumented in this encounter Additional Health Concerns Assessment Noted Time PHQ-9 Depression Total Score: 8 02/21/20 20 11:39 AM EDT PHQ-2 Depression Total Score: 0 01/25/20 23 12:09 PM EDT documented as of this encounter Care Teams Director Transportation Relationship Specialty Start Date End Date Charo Siu NP [email or web address] PCP - General Family Medicine 05/29/19 07/11/23 Philippe Torres CNP [address] [place] [address], [address] [place] [address] PCP - General Adult Health 07/12/23 07/16/23 Juan Yarbrough MD [address] [place] [address], [address] [place] [address] [email or web address] PCP - General Internal Medicine 07/17/23 documented as of this encounter Additional Source Comments The information contained in this document represents components of the legal health record. It is not the complete legal health record.[facility]
--- OUTSIDE RECORDS SUMMARY | 2025-01-09 06:28 | XMS_ITS | Encounter Summary ---
Author Organization [facility] Address [address] [place] [address] Phone Care Team Providers Care Crystallographer Name Role Phone Jaun Yarbrough MD Primary Care Provider [phone] Encounter Details Date Type Department Care Team (Late st Contact Info) Description 11/15/2023 Procedure Pass [facility], [address] [place] [address] Social History Tobacco Use Types Packs/Day Years [...] your housing situation today? I have niurka sing 05/28/2021 How many times have you move [...] with a working camera? Not on file Intimate Partner Violence Answer Date R ecorded Are you denied basic needs s uch as food, clothing, or medical care? No 09/12/2023 In the past 12 months have y ou been in a relationship with a person who hurts, threatens, or tries to control you? No 09/12/2023 Are you denied basic needs s uch as food, clothing, or medical care? No 09/12/2023 In the past 12 months have y ou been in a relationship with a person who hurts, threatens, or tries to control you? No 09/12/2023 Comments No Sex and Gender Information Value Date Recorded Sex Assigned at Not on file Legal Sex Female 10:34 PM EDT Gender Identity Not on file Sexual Orientation Not on file documented as of this encounter Plan of Treatment Upcoming Encounters Date Type Department Care Team (Late st Contact Info) Description 01/15/2025 8:30 AM EDT Office Visit [facility] Orthopedics & Sports Medicine [address] [place] [address] Freddy Garcia DO [address] [place] [address] [facility] [place] [address] 04/11/2025 8:00 AM EST Office Visit [facility] Family [address] [place] [address] Jaun Yarbrough MD [address] [place] [address], [address] [place] [address] 08/06/2025 7:30 AM EDT Office Visit [facility] [address] [place] [address] Dr 3rd Floor, [address] [place] [address] Celai Collier DNP [address] [place] [address], [address] [place] [address] 09/01/2025 9:30 AM EDT Office Visit [facility] Neurology [address] [place] [address] Joe Hill MD [address] [place] [address], 2nd [place] [address] 11/06/2025 8:40 AM EDT Office Visit [facility] Rheumatology [address] [place] [address] Erin Patel MD, MPH [address] [place] [address], [address] [place] [address] documented as of this encounter Visit Diagnoses Not on filedocumented in this encounter Additional Health Concerns Assessment Noted Time PHQ-9 Depression Total Score: 8 02/21/20 20 11:39 AM EDT PHQ-2 Depression Total Score: 0 09/20/19 24 11:57 AM EDT documented as of this encounter Care Teams Crystallographer Relationship Specialty Start Date End Date Jaun Yarbrough MD [address] [place] [address], [address] [place] [address] PCP - General Internal Medicine 07/17/23 documented as of this encounter Additional Source Comments The information contained in this document represents components of the legal health record. It is not the complete legal health record.[facility]
--- OUTSIDE RECORDS SUMMARY | 2025-01-09 06:28 | XMS_ITS | Encounter Summary ---
Author Organization [facility] Address [address] [facility] [address] [place] [address] Phone Care Team Providers Care Kiln Maintenance Name Role Phone Jaun Yarbrough MD Primary Care Provider Encounter Details Date Type Department Care Team (Late st Contact Info) Description 07/05/2024 Ancillary Orders [facility] Rheumatology [address] [place] [address] Erin Patel MD, MPH [address] [facility], [address] [place] [address] [email or web address] Psoriatic arthritis (Primary Dx) Social History Tobacco Use Types Packs/Day Years [...] Description 01/15/2025 8:30 AM EDT Office Visit [facility] Orthopedics & Sports Medicine [address] [place] [address] Freddy Garcia DO [address] [place] [address] [facility] [place] [address] 04/11/2025 8:00 AM EST Office Visit [facility] Medicine [address] [place] [address] Jaun Yarbrough MD [address] [place] [address], [address] [place] [address] 08/06/2025 7:30 AM EDT Office Visit [facility] [address] [place] [address] 3rd Floor, [address] [place] [address] Celia Collier DNP [address] [place] [address], [address] [place] [address] 09/01/2025 9:30 AM EDT Office Visit [facility] Neurology [address] [place] [address] Joe Hill MD [address] [place] [address], 2nd [place] [address] 11/06/2025 8:40 AM EDT Office Visit [facility] Rheumatology [address] [place] [address] Erin Patel MD, MPH [address] [place] [address], [address] [place] [address] documented as of this encounter Results * XR FOOT 3 OR MORE VIEWS (LEFT) (07/05/2024 8:15 AM EST) Anatomical Region Laterality Modality Foot Left Computed Radiogr aphy 07/05/2024 11:2 7 AM EST Impressions 07/05/2024 11:28 AM EST No specific evidence of inflammatory arthritis. Narrative 07/05/2024 11:28 AM EST XR FOOT 3 OR MORE VIEWS (LEFT) Referring clinician's provided indication for this examination in Epic: Pain; psoriatic arthritis COMPARISON: XR FOOT 3 OR MORE VIEWS (LEFT) FINDINGS: Mild first metatarsophalangeal degenerative changes. No acute fracture or dislocation. No erosion. No soft tissue swelling. Procedure Note Malena To MD - 07/05/2024 XR FOOT 3 OR MORE VIEWS (LEFT) Referring clinician's provided indication for this examination in Epic:Pain; psoriatic arthritis COMPARISON: XR FOOT 3 OR MORE VIEWS (LEFT) FINDINGS: Mild first metatarsophalangeal degenerative changes. No acute fracture ordislocation. No erosion. No soft tissue swelling. IMPRESSION: No specific evidence of inflammatory arthritis. Erin Patel MD, MPH IMG XR LOWER EXTREMITY F inal Result documented in this encounter Visit Diagnoses Diagnosis Psoriatic arthritis Psoriatic arthropathy Psoriatic arthritis- Primary Psoriatic arthropathy documented in this encounter Additional Health Concerns Assessment Noted Time PHQ-9 Depression Total Score: 8 02/21/20 11:39 AM EDT PHQ-2 Depression Total Score: 0 09/20/19 11:57 AM EDT documented as of this encounter Care Teams Kiln Maintenance Relationship Specialty Start Date End Date Jaun Yarbrough MD [address] [place] [address], [address] [place] [address] [email or web address] PCP - General Internal Medicine 07/17/23 documented as of this encounter Additional Source Comments The information contained in this document represents components of the legal health record. It is not the complete legal health record.[facility]
--- OUTSIDE RECORDS SUMMARY | 2025-01-09 06:28 | XMS_ITS | Encounter Summary ---
Author Organization [facility] Address [address] [facility] [place] [address] [place] [address] Phone Care Team Providers Care Fruit Shipper Name Role Phone Jaun Yarbrough MD Primary Care Provider [phone] Reason for Visit * Reason Comments Medication Refill Encounter Details Date Type Department Care Team (Late st Contact Info) Description 12/25/2024 Refill [facility] [address] [place] [address] Jaun Yarbrough MD [address] [facility], [address] [place], [place] [id number] [email or web address] Medication Refill Social History Tobacco Use Types Packs/Day Years [...] on file documented as of this encounter Progress Notes * Philippe Torres CNP - 12/25/2024 11:27 AM EDT If she is using #15/month she needs to discuss with PCP. If this is an auto refill request it can wait for PCP return. * Ellen Ring - 12/25/2024 10:06 AM EDT Called pt pharmacy and they stated that it was filled on 11/25 for 15 tablets. * Philippe Torres CNP - 12/25/2024 9:49 AM EDT Please call the pharmacy as requested. * Philippe Torres CNP - 12/25/2024 9:09 AM EDT Images from the original note were not included. Please re-snip WELD ENGINEER to include all controlled substances - taking methylphenidate as well. This medication was prescribed by PCP on 11/25 and is non on this WELD ENGINEER. Please find out from pharmacyif it was filled/picked up. * Ellen Ring - 12/25/2024 8:28 AM EDT Images from the original note were not included. Rx Care Gap Status - Instructions for Clinical Staff (prescriber discretion applies): > Mismatch review guide > N/a - No action needed Visit Info Last visit: 10/07/2024 Jaun Yarbrough MD - Family Medicine [facility] > Requested f/u: Return in about 6 months (around 04/08/2025) for Annual physical. Upcoming visit: 04/11/2025 Jaun Yarbrough MD - Family Medicine [facility] ACTIONS TAKEN BY Ellen Ring - Criteria met. Non-Opioid Controlled Substance Without PDMP Rx Protocol - butalb/acetaminophen/caffeine Renewal is at prescriber discretion. Visit in the past 12 months: Yes documented in this encounter Plan of Treatment Upcoming Encounters Date Type Department Care Team (Late st Contact Info) Description 01/15/2025 8:30 AM EDT Office Visit [facility] Orthopedics & Sports Medicine [address] [place] [address] Freddy Garcia DO [address] [place] [address] Orthopedics & Sports Medicine, [place] [address] 04/11/2025 8:00 AM EST Office Visit [address] [place] [address] Jaun Yarbrough MD [address] [place] [address], [address] [place] [address] 08/06/2025 7:30 AM EDT Office Visit [facility] [address] [place] [address] 3rd Floor, [address] [place] [address] Celia Collier DNP [address] [place] [address], [address] [place] [address] 09/01/2025 9:30 AM EDT Office Visit [facility] Neurology [address] [place] [address] [place] [address] Joe Hill MD [address] [place] [address], 2nd [place] [address] 11/06/2025 8:40 AM EDT Office Visit [facility] Rheumatology [address] [place] [address] [place] [address] Erin Patel MD, MPH [address] [facility], [address] [place] [address] [email or web address] documented as of this encounter Visit Diagnoses Diagnosis Complex regional pain syndrome type 1 of left lower extremity documented in this encounter Additional Health Concerns Assessment Noted Time PHQ-9 Depression Total Score: 8 02/21/20 20 11:39 AM EDT PHQ-2 Depression Total Score: 0 10/07/19 25 2:45 PM EDT documented as of this encounter Care Teams Fruit Shipper Relationship Specialty Start Date End Date Jaun Yarbrough MD [address] [facility], [address] [place] [address] [email or web address] PCP - General Internal Medicine 07/17/23 documented as of this encounter Additional Source Comments The information contained in this document represents components of the legal health record. It is not the complete legal health record.[facility]
--- OUTSIDE RECORDS SUMMARY | 2025-01-09 06:28 | XMS_ITS | Encounter Summary ---
Author Organization [facility] Address [address] [place] [address] Phone Care Team Providers Care Glass Bender Name Role Phone Jaun Yarbrough MD Primary Care Provider [phone] Encounter Details Date Type Department Care Team (Late st Contact Info) Description 09/12/2023 Procedure Pass [facility], Ct Scan - [address] [address] Social History Tobacco Use Types Packs/Day Years [...] on file documented as of this encounter Functional Status * Calculated C-SSRS Risk Score (Lifetime/Recent) Answer Date of Assessment Author No Risk Indicated 09/12/2023 5:04 AM CASSANDRAT Ana Luisa Resendez RN * Gerry Suicide Severity Rating Scale (Screener/Recent Self-Report) Question Answer Date of Assessment Author 1. Wish to be (Past 1 Month) No 09/12/2023 5:04 AM CASSANDRAT Ana Luisa Resendez, BONITA 2. Non-Specific Active Suicidal Thoughts (Past 1 Month) No 09/12/2023 5:04 AM Ana Luisa Waddell RN 6. Suicidal Behavior (Lifetime) No 09/12/2023 5:04 AM EDT Ana Luisa Resendez RN documented as of this encounter Plan of Treatment Upcoming Encounters Date Type Department Care Team (Late st Contact Info) Description 01/15/2025 8:30 AM EDT Office Visit [facility] Orthopedics & Sports Medicine [address] [place] [address] Freddy Garcia DO [address] [place] [address] Orthopedics & Sports Medicine, [facility] [place] [address] 04/11/2025 8:00 AM EST Office Visit [address] [place] [address] Jaun Yarbrough MD [address] [place] [address], [address] [place] [address] 08/06/2025 7:30 AM EDT Office Visit [facility] [address] [place] [address] 3rd Floor, [address] [place] [address] Celia Collier, ANTHONY [address] [place] [address], [address] [place] [address] 09/01/2025 9:30 AM EDT Office Visit [facility] Neurology [address] [place] [address] [place] [address] Joe Hill MD [address] [place] [address], 2nd [place] [address] 11/06/2025 8:40 AM EDT Office Visit [facility] Rheumatology [address] [place] [address] [place] [address] Erin Patel MD, MPH [address] [place] [address], [address] [place] [address] [email or web address] documented as of this encounter Visit Diagnoses Not on filedocumented in this encounter Additional Health Concerns Assessment Noted Time PHQ-9 Depression Total Score: 8 02/21/20 20 11:39 AM EDT PHQ-2 Depression Total Score: 0 01/25/20 23 12:09 PM EDT documented as of this encounter Care Teams Glass Bender Relationship Specialty Start Date End Date Jaun Yarbrough MD [address] [place] [address], [address] [place] [id number] [email or web address] PCP - General Internal Medicine 07/17/23 documented as of this encounter Additional Source Comments The information contained in this document represents components of the legal health record. It is not the complete legal health record.[facility]
--- OUTSIDE RECORDS SUMMARY | 2025-01-09 06:28 | XMS_ITS | Encounter Summary ---
Author Organization [facility] Address [address] [facility] [address] [place] [address] Phone Care Team Providers Care Stars Coordinator Name Role Phone Charo Siu STATISTICAL MODELER Primary Care Provider Philippe Torres CNP Primary Care Provider [phone] Jaun Yarbrough MD Primary Care Provider [phone] Encounter Details Date Type Department Care Team (Late st Contact Info) Description 03/08/2023 Ancillary Orders [address] [phone] Katherine Rosenberg MD [address] [place] [address] Orthopedics & Sports Medicine, [facility]. [place], [place] [id number] [email or web address] Arthralgia of right hip Social History Tobacco Use Types Packs/Day Years [...] high school, GED, job training, learning the Icelandic language, technical skills, or developing parenting skills)? [...] Description 01/15/2025 8:30 AM EDT Office Visit [facility] Orthopedics & Sports Medicine [address] [place] [address] Freddy Garcia DO [address] [place] [address] Orthopedics & Sports Medicine, [facility] [place] [address] 04/11/2025 8:00 AM EST Office Visit [facility] [address] [place] [address] Jaun Yarbrough MD [address] [place] [address], [address] [place] [address] 08/06/2025 7:30 AM EDT Office Visit [facility] [address] [place] [address] Dr 3rd Floor, [address] [place] [address] Celia Collier DNP [address] [place] [address], [address] [place] [address] 09/01/2025 9:30 AM EDT Office Visit [facility] Neurology [address] [place] [address] Joe Hill MD [address] [place] [address], 2nd [place] [address] [email or web address] 11/06/2025 8:40 AM EDT Office Visit [facility] Rheumatology [address] [place] [address] Erin Patel MD, MPH [address] [place] [address], [address] [place] [address] [email or web address] Pending Results Name Type Priority Associated Diagnoses Date /Time FL Guidance Needle Placement Non-Spine Imaging Routine Arthralgia of right hip 03/14/2023 7:59 AM EST Scheduled Orders Name Type Priority Associated Diagnoses Orde r Schedule FL Guidance Needle Placement Non-Spine Imaging Routine Arthralgia of right hip 1 Occurrences starting 03/08/2023 until 06/08/2023 documented as of this encounter Visit Diagnoses Diagnosis Arthralgia of right hip documented in this encounter Additional Health Concerns Assessment Noted Time PHQ-9 Depression Total Score: 8 02/21/20 20 11:39 AM EDT PHQ-2 Depression Total Score: 0 01/25/20 23 12:09 PM EDT documented as of this encounter Care Teams Stars Coordinator Relationship Specialty Start Date End Date Charo Siu, STATISTICAL MODELER PCP - General Family Medicine 05/29/19 07/11/23 Philippe Torres CNP [address] [place] [address], [address] [place] [address] PCP - General Adult Health 07/12/23 07/16/23 Jaun Yarbrough MD [address] [place] [address], [address] [place] [address] PCP - General Internal Medicine 07/17/23 documented as of this encounter Additional Source Comments The information contained in this document represents components of the legal health record. It is not the complete legal health record.[facility]
--- OUTSIDE RECORDS SUMMARY | 2025-01-09 06:28 | XMS_ITS | Encounter Summary ---
Author Organization [facility] Address [address] [place] [address] Phone Care Team Providers Care Supervisor Of Operations Name Role Phone Jaun Yarbrough MD Primary Care Provider [phone] Encounter Details Date Type Department Care Team (Late st Contact Info) Description 01/11/2024 Procedure Pass [place] Admitting Dept - Virtual Department [address] [place] [address] Social History Tobacco Use Types Packs/Day Years [...] Description 01/15/2025 8:30 AM EDT Office Visit [facility] Orthopedics & Sports Medicine [address] [place] [address] Freddy Garcia DO [address] [place] [address] Orth[facility] [place] [address] 04/11/2025 8:00 AM EST Office Visit [facility] [address] [place] [address] Jaun Yarbrough MD [address] [place] [address], [address] [place] [address] 08/06/2025 7:30 AM EDT Office Visit [facility] [address] [place] [address] Dr 3rd Floor, [address] [place] [address] Celia Collier DNP [address] [place] [address], [address] [place] [address] 09/01/2025 9:30 AM EDT Office Visit [facility] Neurology [address] [place] [address] Joe Hill MD [address] [place] [address], 2nd [place] [address] 11/06/2025 8:40 AM EDT Office Visit [facility] Rheumatology [address] [place] [address] Erin Patel MD, MPH [address] [place] [address], [address] [place] [address] documented as of this encounter Visit Diagnoses Not on filedocumented in this encounter Additional Health Concerns Assessment Noted Time PHQ-9 Depression Total Score: 8 02/21/20 20 11:39 AM EDT PHQ-2 Depression Total Score: 0 09/20/19 24 11:57 AM EDT documented as of this encounter Care Teams Supervisor Of Operations Relationship Specialty Start Date End Date Jaun Yarbrough MD [address] [place] [address], [address] [place] [address] PCP - General Internal Medicine 07/17/23 documented as of this encounter Additional Source Comments The information contained in this document represents components of the legal health record. It is not the complete legal health record.[facility]
--- OUTSIDE RECORDS SUMMARY | 2025-01-09 06:28 | XMS_ITS | Encounter Summary ---
Author Organization [facility] Address [address] [facility] [address] [place] [address] Phone Care Team Providers Care Information Receptionist Name Role Phone Charo Siu NP Primary Care Provider [phone] Philippe Torres CNP Primary Care Provider [phone] Jaun Yarbrough MD Primary Care Provider [phone] Encounter Details Date Type Department Care Team (Latest Contact Info) Description 06/01/2023 Ancillary Orders [facility], X-Ray - [address] [address] Aishwarya Luo, [place] [address] [place] [address] [email or web address] Sacrococcygeal disorders, not elsewhere classified (Primary Dx) Social History Tobacco Use Types [...] Description 01/15/2025 8:30 AM EDT Office Visit [facility] Orthopedics & Sports Medicine [address] [place] [address] Freddy Garcia DO [address] [place] [address] Orthopedics & Sports Medicine, [facility] [place] [address] 04/11/2025 8:00 AM EST Office Visit [facility] Family Medicine [address] [place] [address] [place] [address] Jaun Yarbrough MD [address] [place] [address], [address] [place] [address] 08/06/2025 7:30 AM EDT Office Visit [facility] [address] [place] [address] Dr 3rd Floor, [address] [place] [address] Celia Collier DNP [address] [facility], [address] [place] [address] 09/01/2025 9:30 AM EDT Office Visit [facility] Neurology [address] [place] [address] Joe Hill MD [address] [place] [address], 2nd [place] [address] 11/06/2025 8:40 AM EDT Office Visit [facility] Rheumatology [address] [place] [address] Erin Patel MD, MPH [address] [place] [address], [address] [place] [address] [email or web address] documented as of this encounter Results * XR HIPS 2+ VW EA BILAT PLUS PELVIS (06/01/2023 3:27 PM EST) Anatomical Region Laterality Modality Hip, Pelvis Computed Radiogr aphy 06/04/2023 4:00 PM EST Impressions 06/04/2023 4:02 PM EST Mild to moderate right and mild left hip osteoarthritis. Partially visualized lower lumbar spine degenerative change. Similar severe erosive changes of the pubic symphysis, likely degenerative. Narrative 06/04/2023 4:02 PM EST XR HIPS 2+ VW EA BILAT PLUS PELVIS Referring clinician's provided indication for this examination in Epic: Pain COMPARISON: XR HIP 2 VW LEFT PLUS PELVIS FINDINGS: PELVIS: Pelvic ring intact. No displaced fracture. Degenerative changes of the lower lumbar spine, sacroiliac joints, and pubic symphysis. Surgical clips overlie the right iliac bone. Constipation. Similar severe erosive changes of the pubic symphysis. RIGHT HIP: Mild to moderate joint space narrowing with subchondral sclerosis and marginal osteophyte formation. LEFT HIP: Mild hip joint space narrowing. Procedure Note Preston Vela MD - 06/04/2023 XR HIPS 2+ VW EA BILAT PLUS PELVIS Referring clinician's provided indication for this examination in Epic:Pain COMPARISON: XR HIP 2 VW LEFT PLUS PELVIS FINDINGS: PELVIS: Pelvic ring intact. No displaced fracture. Degenerative changes ofthe lower lumbar spine, sacroiliac joints, and pubic symphysis. Surgicalclips overlie the right iliac bone. Constipation. Similar severe erosivechanges of the pubic symphysis. RIGHT HIP: Mild to moderate joint space narrowing with subchondralsclerosis and marginal osteophyte formation. LEFT HIP: Mild hip joint space narrowing. IMPRESSION: Mild to moderate right and mild left hip osteoarthritis. Partially visualized lower lumbar spine degenerative change. Similar severe erosive changes of the pubic symphysis, likelydegenerative. Aishwarya BANUELOS IMG XR PELVIS Final Result documented in this encounter Visit Diagnoses Diagnosis Sacrococcygeal disorders, not elsewhere classified- Primary Sacrococcygeal disorders, not elsewhere classified documented in this encounter Additional Health Concerns Assessment Noted Time PHQ-9 Depression Total Score: 8 02/21/20 20 11:39 AM EDT PHQ-2 Depression Total Score: 0 01/25/20 23 12:09 PM EDT documented as of this encounter Care Teams Information Receptionist Relationship Specialty Start Date End Date Charo Siu NP [email or web address] PCP - General Family Medicine 05/29/19 07/11/23 Philippe Torres, GRAEME [address] [facility], [address] [place] [address] [email or web address] PCP - General Adult Health 07/12/23 07/16/23 Jaun Yarbrough MD [address] [place] [address], [address] [place] [address] PCP - General Internal Medicine 07/17/23 documented as of this encounter Additional Source Comments The information contained in this document represents components of the legal health record. It is not the complete legal health record.[facility]
--- OUTSIDE RECORDS SUMMARY | 2025-01-09 06:28 | XMS_ITS | Encounter Summary ---
Author Organization [facility] Address [address] [facility] [address] [place] [address] Phone Care Team Providers Care Labor Mediator Name Role Phone Charo Siu SKIN CARE CONSULTANT Primary Care Provider [phone] Kyle Becerra MD Unavailable Sussy Walters RN Unavailable [phone] Charo Siu SKIN CARE CONSULTANT Primary Care Provider [phone] Kyle Becerra MD Unavailable [phone] Philippe Torres CNP Primary Care Provider [phone] Jaun Yarbrough MD Primary Care Provider [phone] Encounter Details Date Type Department Care Team (Late st Contact Info) Description 09/14/2018 Ancillary Orders Virtual Department [address] [place] [address] Elidia Castellanos MD [address] [place] [address] Thymoma Social History Tobacco Use Types Packs/Day Years [...] Description 01/15/2025 8:30 AM EDT Office Visit [facility] [address] [place] [address] Freddy Garcia DO [address] [place] [address] Orthopedics & Sports Medicine, [place] [address] 04/11/2025 8:00 AM EST Office Visit [address] [address] Jaun Yarbrough MD [address] [place] [address], [address] [place] [address] 08/06/2025 7:30 AM EDT Office Visit [facility] [address] [place] [address] 3rd Floor, [address] [place] [address] Celia Collier, ANTHONY [address] [place] [address], [address] [place] [address] 09/01/2025 9:30 AM EDT Office Visit [facility] Neurology [address] [place] [address] Joe Hill MD [address] [place] [address], 2nd [place] [address] 11/06/2025 8:40 AM EDT Office Visit [facility] Rheumatology [address] [place] [address] [place] [address] Erin Patel MD, MPH [address] [place] [address], [address] [place] [address] documented as of this encounter Visit Diagnoses Diagnosis Thymoma Benign neoplasm of thymus documented in this encounter Additional Health Concerns Infection Onset Date Last Indicated Resolved Time CoV-Risk Comment:Per Ambulatory Triage Form 04/26/2021 04/26/202105/06 1:22 AM EST COVID-19 05/26/2021 05/26/2021 06/16/2021 1:24 AM EST Assessment Noted Time PHQ-2 Depression Total Score: 0 07/04/19 10:34 AM EST documented as of this encounter Care Teams Labor Mediator Relationship Specialty Start Date End Date Charo Siu SKIN CARE CONSULTANT PCP - General 03/22/17 05/28/19 Charo Siu SKIN CARE CONSULTANT PCP - General Family Medicine 05/29/19 07/11/23 Philippe Torres CNP [address] [place] [address], [address] [place] [address] PCP - General Adult Health 07/12/23 07/16/23 Jaun Yarbrough MD [address] [place] [address], [address] [address] PCP - General Internal Medicine 07/17/23 Kyle Becerra MD [address] [place] [address] Insurance Assigned Provider 08/05/17 11/17/18 Sussy Walters, RN [address] [place] [address] [email or web address] [email or web address] Building Construction Teacher 12/13/18 12/16/18 Kyle Becerra MD [address] [place] [address] [email or web address] Insurance Assigned Provider 08/14/19 05/15/21 documented as of this encounter Additional Source Comments The information contained in this document represents components of the legal health record. It is not the complete legal health record.[facility]
--- OUTSIDE RECORDS SUMMARY | 2025-01-09 06:28 | XMS_ITS | Patient Health Record ---
Author Organization [facility] Address [address] [place] [address] Care Team Providers Care Spinning Lathe Operator Name Role Phone Sherron PUGA, Charo Primary Care Provider José Luis Young Jr Unavailable Allergies Allergen (clinical drug ingredient) Drug/Non Drug Allergy documented on EMR Reaction Allergy Type Onset Date Status tramadol Tramadol HCl Unknown Drug Allergy Acti ve topiramate Topamax Unknown Drug Allergy Active Levaquin Unknown Drug Allergy Active gabapentin Gabapentin Unknown Drug Allergy Activ e sulfamethoxazole / trimethoprim Bactrim Unknown Drug Allergy Active amitriptyline Amitriptyline HCl Unknown Drug Allergy Active Reason For Referral No Information Medications Medication SIG (Take, Route, Frequency, Duration) Notes Start Date End Date Status Colyte with Flavor Packs 240 GM As directed Orally Over the specified time. for 1 day(s) 08/06/2015 Active Albuterol Active Singulair Active Aspir-81 Active Paxil Active oxyCODONE HCl 5 MG Orally A ctive OxyCONTIN 20 MG Orally Acti ve Breo Ellipta Active amLODIPine Besylate Active Irbesartan Active Xanax Active Immunizations Vaccine Route Administration Date Status Comme nts Influenza Unknown 02/05/2015 Administered Problems Problem Type SNOMED Code ICD Code Onset Dates Problem Status W/U Status Risk Notes Problem 889584949 Colon cancer screening (Z12.11) Active confirmed Problem [id number] Uncomplicated opioid dependence (F11.20) Active confirmed Plan Of Treatment Future Test Test Name Order Date COLONOSCOPY 08/06/2015 Insurance Providers Payer Name Payer Address Payer Phone Subscriber Number Group Number Insured Name Patient Relationship to Insured Coverage Start Date Coverage End Date [employer] [place] [address] [place] [address] [id number] FREIDA NGUYEN Self - patient is the insured Medical (General) History Medical History History ICD Code hypertension urinary incontinence-stress induced asthma depression ReFlex sympathetic dystrophy Surgical History Surgery Date(Month/Year) lumbar sympathectomy c section knee arthroscopic right shoulder
--- OUTSIDE RECORDS SUMMARY | 2025-01-09 06:28 | XMS_ITS | Encounter Summary ---
Author Organization [facility] Address [address] [facility] [address] [place] [address] Phone Care Team Providers Care Warp Yarn Sorter Name Role Phone Charo Siu BISQUE KILN PLACER Primary Care Provider [phone] Kyle Becerra MD Unavailable [phone] Sussy Walters RN Unavailable [phone] Charo Siu BISQUE KILN PLACER Primary Care Provider [phone] Kyle Becerra MD Unavailable [phone] Philippe Torres CNP Primary Care Provider [phone] Jaun Yarbrough MD Primary Care Provider [phone] Reason for Referral * MRI/CAT Scan - Closed Specialty Diagnoses / Procedures Referred By Contac t Referred To Contact Procedures MRI Brain Outside (No Interpretation) System, Provider Not In, [facility] [address] [address] Referral ID Status Reason Start Date Expiration Date Visits Re quested Visits Authorized [id number] Closed 08/17/2018 08/17/2019 1 1 Encounter Details Date Type Department Care Team (Late st Contact Info) Description 08/17/2018 Ancillary Orders [facility],Outside Imaging [address] [place] [address] System, Provider Not In, [facility] [address] [address] Social History Tobacco Use Types Packs/Day Years [...] Description 01/15/2025 8:30 AM EDT Office Visit [facility] Orthopedics & Sports Medicine [address] [place] [address] Freddy Garcia DO [address] [place] [address] Orthopedics & Sports [place], [place] [address] 04/11/2025 8:00 AM EST Office Visit [address] [place] [address] Jaun Yarbrough MD [address] [place] [address], [address] [place] [address] 08/06/2025 7:30 AM EDT Office Visit [facility] [address] [place] [address] 3rd Floor, [address] [place] [address] Celia Collier DNP [address] [place] [address], [address] [place] [address] 09/01/2025 9:30 AM EDT Office Visit [facility] Neurology [address] [place] [address] [place] [address] Joe Hill MD [address] [place] [address], 2nd [place] [address] 11/06/2025 8:40 AM EDT Office Visit [facility] [place] [address] Erin Patel MD, MPH [address] [facility], [address] [place] [address] [email or web address] documented as of this encounter Results * MRI Brain Outside (No Interpretation) (06/14/2018 12:00 AM EST) Narrative SYSTEMGENERATED, DOCUMENTATION - 08/17/2018 2:53 PM EDT This study is for PACS [...] documented as of this encounter Care Teams Warp Yarn Sorter Relationship Specialty Start Date End Date Charo Siu NP PCP - General 03/22/17 05/28/19 Charo Siu NP PCP - General Family Medicine 05/29/19 07/11/23 Philippe Torres CNP [address] [place] [address], [address] [place] [address] PCP - General Adult Health 07/12/23 07/16/23 Jaun Yarbrough MD [address] [place] [address], [address] [place] [address] [email or web address] PCP - General Internal Medicine 07/17/23 Kyle Becerra MD [address] [place] [address] [email or web address] Insurance Assigned Provider 08/05/17 11/17/18 Sussy Walters, BONITA [address] [place] [address] [email or web address] Compound Finisher 12/13/18 12/16/18 Kyle Becerra MD [address] [place] [address] Insurance Assigned Provider 08/14/19 05/15/21 documented as of this encounter Additional Source Comments The information contained in this document represents components of the legal health record. It is not the complete legal health record.[facility]
--- OUTSIDE RECORDS SUMMARY | 2025-01-09 06:28 | XMS_ITS | Encounter Summary ---
Author Organization [facility] Address [address] [facility] [address] [place] [address] Phone Care Team Providers Care Television Installer Name Role Phone Charo Siu SLEEVE TURNER Primary Care Provider [phone] Kyle Becerra MD Unavailable [phone] Philippe Torres CNP Primary Care Provider [phone] Jaun Yarbrough MD Primary Care Provider [phone] Encounter Details Date Type Department Care Team (Late st Contact Info) Description 07/21/2020 Procedure Pass Echo Lab [address] [place] [address] Social History Tobacco Use Types Packs/Day Years [...] 01/15/2025 8:30 AM EDT Office Visit [facility] [address] [place] [address] Freddy Garica DO [address] [place] [address] Orthoped[facility] [place], [place] [id number] 04/11/2025 8:00 AM EST Office Visit [facility] Medicine [address] [place] [address] [place] [address] Jaun Yarbrough MD [address] [place] [address], [address] [place] [address] 08/06/2025 7:30 AM EDT Office Visit [facility] [address] [place] [address] 3rd Floor, [address] [place] [address] Celia Collier DNP [address] [place] [address], [address] [place] [address] 09/01/2025 9:30 AM EDT Office Visit [facility] Neurology [address] [place] [address] Joe Hill MD [address] [place] [address], 2nd [place] [address] 11/06/2025 8:40 AM EDT Office Visit [facility] Rheumatology [address] [place] [address] Erin Patel MD, MPH [address] [place] [address], [address] [place] [address] documented as of this encounter Visit Diagnoses [...] documented as of this encounter Care Teams Television Installer Relationship Specialty Start Date End Date Charo Siu NP PCP - General Family Medicine 05/29/19 07/11/23 Philippe Torres CNP [address] [place] [address], [address] [place] [address] PCP - General Adult Health 07/12/23 07/16/23 Jaun Yrabrough MD [address] [place] [address], [address] [place] [address] PCP - General Internal Medicine 07/17/23 Kyle Becerra MD [address] [place] [address] Insurance Assigned Provider 08/14/19 05/15/21 documented as of this encounter Additional Source Comments The information contained in this document represents components of the legal health record. It is not the complete legal health record.[facility]
--- OUTSIDE RECORDS SUMMARY | 2025-01-09 06:28 | XMS_ITS | Encounter Summary ---
Author Organization [facility] Address [address] [place] [address] Phone Care Team Providers Care Crap Game Box Person Name Role Phone Jaun Yarbrough MD Primary Care Provider [phone] Encounter Details Date Type Department Care Team (Latest Contact Info) Description 07/04/2024 Ancillary Orders [address] [id number] Katherine Rosenberg MD [address] [place] [address] Orthopedics & Sports Medicine, [place], [place] [id number] [email or web address] Osteoarthritis of one hip, right (Primary Dx) Social History Tobacco Use Types [...] Description 01/15/2025 8:30 AM EDT Office Visit [facility] Orthopedics & Sports Medicine [address] [place] [address] Freddy Garcia DO [address] [place] [address] Orthopedics & [facility] [place] [address] 04/11/2025 8:00 AM EST Office Visit [facility] Medicine [address] [place] [address] [place] [address] Jaun Yarbrough MD [address] [place] [address], [address] [place] [address] 08/06/2025 7:30 AM EDT Office Visit [facility] [address] [place] [address] Dr 3rd Floor, [address] [place] [address] Celia Collier DNP [address] [place] [address], [address] [place] [address] 09/01/2025 9:30 AM EDT Office Visit [facility] Neurology [address] [place] [address] [place] [address] Joe Hill MD [address] [place] [address], 2nd [place] [address] 11/06/2025 8:40 AM EDT Office Visit [facility] Rheumatology [address] [place] [address] [place] [address] Erin Patel MD, MPH [address] [place] [address], [address] [place] [address] [email or web address] Pending Results Name Type Priority Associated Diagnoses Date /Time FL Guidance Needle Placement Non-Spine Imaging Routine Osteoarthritis of one hip, right 07/09/2024 12:03 PM EST Scheduled Orders Name Type Priority Associated Diagnoses Orde r Schedule FL Guidance Needle Placement Non-Spine Imaging Routine Osteoarthritis of one hip, right 1 Occurrences starting 07/04/2024 until 10/01/2024 documented as of this encounter Visit Diagnoses Diagnosis Osteoarthritis of one hip, right- Primary documented in this encounter Additional Health Concerns Assessment Noted Time PHQ-9 Depression Total Score: 8 02/21/20 11:39 AM EDT PHQ-2 Depression Total Score: 0 09/20/19 11:57 AM EDT documented as of this encounter Care Teams Crap Game Box Person Relationship Specialty Start Date End Date Jaun Yarbrough MD [address] [place] [address], [address] [place] [address] [email or web address] PCP - General Internal Medicine 07/17/23 documented as of this encounter Additional Source Comments The information contained in this document represents components of the legal health record. It is not the complete legal health record.[facility]
--- OUTSIDE RECORDS SUMMARY | 2025-01-09 06:28 | XMS_ITS | Encounter Summary ---
Author Organization [facility] Address [address] [facility] [address] [place] [address] Phone Care Team Providers Care Plan Consultant Name Role Phone Charo Siu CHIEF LIBRARIAN CIRCULATION DEPARTMENT Primary Care Provider [phone] Philippe Torres CNP Primary Care Provider [phone] Jaun Yarbrough MD Primary Care Provider [phone] Encounter Details Date Type Department Care Team (Late st Contact Info) Description 10/28/2022 Ancillary Orders [address] [phone] Katherine Rosenberg MD [address] [place] [address] Orthopedics & Sports Medicine, [facility]. [place], [place] [id number] [email or web address] Hip pain, chronic, right Social History Tobacco Use Types Packs/Day Years [...] high school, GED, job training, learning the [place]uv[place] language, technical skills, or developing parenting skills)? [...] Description 01/15/2025 8:30 AM EDT Office Visit [facility] Orthopedics & Sports Medicine [address] [place] [address] Freddy Garcia DO [address] [place] [address] Orthopedics & Sports Medicine, [place] [address] 04/11/2025 8:00 AM EST Office Visit [facility] [place] [address] [place] [address] Jaun Yarbrough MD [address] [place] [address], [address] [place] [address] 08/06/2025 7:30 AM EDT Office Visit [facility] [address] [place] [address] Dr 3rd Floor, [address] [place] [address] Celia Collier DNP [address] [place] [address], [address] [place] [address] 09/01/2025 9:30 AM EDT Office Visit [facility] Neurology [address] [place] [address] Joe Hill MD [address] [place] [address], 2nd [place] [address] [email or web address] 11/06/2025 8:40 AM EDT Office Visit [facility] Rheumatology [address] [place] [address] Erin Patel MD, MPH [address] [place] [address], [address] [place] [address] [email or web address] Pending Results Name Type Priority Associated Diagnoses Date /Time FL Guidance Needle Placement Non-Spine Imaging Routine Hip pain, chronic, right 11/01/2022 11:46 AM EDT Scheduled Orders Name Type Priority Associated Diagnoses Orde r Schedule FL Guidance Needle Placement Non-Spine Imaging Routine Hip pain, chronic, right 1 Occurrences starting 10/28/2022 until 01/28/2023 documented as of this encounter Visit Diagnoses Diagnosis Hip pain, chronic, right documented in this encounter Additional Health Concerns Assessment Noted Time PHQ-9 Depression Total Score: 8 02/21/20 20 11:39 AM EDT PHQ-2 Depression Total Score: 0 10/18/19 23 3:34 PM EDT documented as of this encounter Care Teams Plan Consultant Relationship Specialty Start Date End Date Charo Siu NP PCP - General Family Medicine 05/29/19 07/11/23 Philippe Torres CNP [address] [place] [address], [address] [place] [address] PCP - General Adult Health 07/12/23 07/16/23 Jaun Yarbrough MD [address] [place] [address], [address] [place] [address] [email or web address] PCP - General Internal Medicine 07/17/23 documented as of this encounter Additional Source Comments The information contained in this document represents components of the legal health record. It is not the complete legal health record.[facility]
--- OUTSIDE RECORDS SUMMARY | 2025-01-09 06:28 | XMS_ITS | Encounter Summary ---
Author Organization [facility] Address [address] [place] [address] Phone Care Team Providers Care Wood Ski Maker Name Role Phone Jaun Yarbrough MD Primary Care Provider [phone] Encounter Details Date Type Department Care Team (Late st Contact Info) Description 08/09/2023 Procedure Pass Echo Lab [address] [place] [address] Social History Tobacco Use Types Packs/Day Years [...] For Behavioral Medicine Orthopedics & Sports Medicine [address] [place] [address] Freddy Garcia DO [address] [place] [address] Orthopedics & Sports Medicine, [facility] [place] [address] 04/11/2025 8:00 AM EST Office Visit [facility] Medicine [address] [place] [address] [place] [address] Jaun Yarbrough MD [address] [facility], [address] [place] [address] 08/06/2025 7:30 AM EDT Office Visit [facility] [address] [place] [address] 3rd Floor, [address] [place] [address] Celia Collier DNP [address] [place] [address], [address] [place] [address] 09/01/2025 9:30 AM EDT Office Visit [facility] Neurology [address] [place] [address] Joe Hill MD [address] [place] [address], 2nd [place] [address] 11/06/2025 8:40 AM EDT Office Visit [facility] Rheumatology [address] [place] [address] Erin Patel MD, MPH [address] [place] [address], [address] [place] [address] documented as of this encounter Visit Diagnoses Not on filedocumented in this encounter Additional Health Concerns Assessment Noted Time PHQ-9 Depression Total Score: 8 02/21/20 20 11:39 AM EDT PHQ-2 Depression Total Score: 0 09/20/19 24 11:57 AM EDT documented as of this encounter Care Teams Wood Ski Maker Relationship Specialty Start Date End Date Jaun Yarbrough MD [address] [place] [address], [address] [place] [address] PCP - General Internal Medicine 07/17/23 documented as of this encounter Additional Source Comments The information contained in this document represents components of the legal health record. It is not the complete legal health record.[facility]
--- OUTSIDE RECORDS SUMMARY | 2025-01-09 06:28 | XMS_ITS | Encounter Summary ---
Author Organization [facility] Address [address] [facility] [address] [place] [address] Phone Care Team Providers Care Promos Executive Producer Name Role Phone Jaun Yarbrough MD Primary Care Provider [phone] Reason for Visit * Reason Onset Date Comments Medication Refill 12/24/2024 CSRP methylphe nidate 20 mg Encounter Details Date Type Department Care Team (Late st Contact Info) Description 12/24/2024 Refill [facility] [address] [place] [address] Monique Smith LPN [address] [place] [address] [email or web address] Medication Refill (CSRP methylphenidate 20 mg) Social History Tobacco Use Types Packs/Day Years [...] as of this encounter Progress Notes * Jaun Yarbrough MD - 12/31/2024 2:14 PM EDT Has a new prescriber, ashly [email or web address] * Monique Smith LPN - 12/24/2024 9:36 AM EDT Images from the original note were not included. Rx Care Gap Status - Instructions for Clinical Staff (prescriber discretion applies): > Mismatch review guide > N/a - No action needed Visit Info Last visit: 10/07/2024 Jaun [facility]arbrough [facility] > Requested f/u: Return in about 6 months (around 04/08/2025) for Annual physical. Upcoming visit: 04/11/2025 Jaun Yarbrough MD - [facility] ACTIONS TAKEN BY Monique Smith LPN - Checked PDMP/[place]PAT. Non-Opioid Controlled Substance Without PDMP Rx Protocol - methylphenidate HCl Renewal is at prescriber discretion. Visit in the past 12 months: Yes documented in this encounter Plan of Treatment Upcoming Encounters Date Type Department Care Team (Late st Contact Info) Description 01/15/2025 8:30 AM EDT Office Visit [facility] Orthopedics & Sports Medicine [address] [place] [id number] Freddy Garcia DO [address] [place] [address] [facility] [place] [address] 04/11/2025 8:00 AM EST Office Visit [facility] Family [address] [place] [address] Jaun Yarbrough MD [address] [place] [address], [address] [place] [address] 08/06/2025 7:30 AM EDT Office Visit [facility] [address] [place] [address] 3rd Floor, [address] [place] [address] Celia Collier, ANTHONY [address] [place] [address], [address] [place] [address] 09/01/2025 9:30 AM EDT Office Visit [facility] Neurology [address] [place] [address] Joe Hill MD 22 [facility], 2nd [place] [address] 11/06/2025 8:40 AM EDT Office Visit [facility] Rheumatology [address] [place] [address] Erin Patel MD, MPH [address] [facility], [address] [place] [address] documented as of this encounter Visit Diagnoses Diagnosis Attention deficit disorder (ADD) without hyperactivity documented in this encounter Additional Health Concerns Assessment Noted Time PHQ-9 Depression Total Score: 8 02/21/20 20 11:39 AM EDT PHQ-2 Depression Total Score: 0 10/07/19 25 2:45 PM EDT documented as of this encounter Care Teams Promos Executive Producer Relationship Specialty Start Date End Date Jaun Yarbrough MD [address] [place] [address], [address] [place] [address] PCP - General Internal Medicine 07/17/23 documented as of this encounter Additional Source Comments The information contained in this document represents components of the legal health record. It is not the complete legal health record.[facility]
--- OUTSIDE RECORDS SUMMARY | 2025-01-09 06:28 | XMS_ITS | Encounter Summary ---
Author Organization [facility] Address [address] [facility] [address] [place] [address] Phone Care Team Providers Care Jumpbasting Canvas Baster Name Role Phone Charo Siu MANAGER SAFE Primary Care Provider [phone] Philippe Torres CNP Primary Care Provider [phone] Jaun Yarbrough MD Primary Care Provider [phone] Encounter Details Date Type Department Care Team (Latest Contact Info) Description 10/28/2022 Ancillary Orders [facility] Rheumatology [address] [place] [address] Erin Patel MD, MPH [address] [facility], [address] [place] [address] [email or web address] Psoriasis; Polyarticular osteoarthritis Social History Tobacco Use Types Packs/Day Years [...] high school, GED, job training, learning the [place] language, technical skills, or developing parenting skills)? [...] Description 01/15/2025 8:30 AM EDT Office Visit [facility] Orthopedics & Sports Medicine [address] [place] [address] Freddy Garcia DO [address] [place] [address] Orthopedics & Sports Medicine, [facility] [place] [address] 04/11/2025 8:00 AM EST Office Visit [address] [place] [address] Jaun Yarbrough MD [address] [place] [address], [address] [place] [address] 08/06/2025 7:30 AM EDT Office Visit [facility] [address] Floor, [address] [place] [address] Celia Collier DNP [address] [facility], [address] [place] [address] 09/01/2025 9:30 AM EDT Office Visit [facility] Neurology [address] [place] [address] [place] [address] Joe Hill MD [address] [place] [address], 2nd [place] [address] [email or web address] 11/06/2025 8:40 AM EDT Office Visit [facility] Rheumatology [address] [place] [address] Erin Patel MD, MPH [address] [place] [address], [address] [place] [address] [email or web address] documented as of this encounter Results * XR FOOT 3 OR MORE VIEWS (LEFT) (10/28/2022 10:45 AM EDT) Anatomical Region Laterality Modality Foot Left Computed Radiogr aphy 10/30/2022 11:5 2 PM EDT Impressions 10/30/2022 11:54 PM EDT Mild forefoot degenerative change. No findings to suggest active psoriatic arthritis. Corticated lucency in the lateral aspect of the fourth metatarsal base, may reflect a para-articular erosion. Narrative 10/30/2022 11:54 PM EDT XR FOOT 3 OR MORE VIEWS (LEFT) COMPARISON: None FINDINGS: No acute fracture or dislocation. Bones are slightly demineralized. Mild joint space narrowing at the first metatarsophalangeal joint and interphalangeal joints. Os peroneus present. Corticated lucency in the lateral aspect of the fourth metatarsal base. Calcific enthesopathy of the Achilles tendon attachment with associated plantar calcaneal spur. Procedure Note Preston Vela MD - 10/30/2022 XR FOOT 3 OR MORE VIEWS (LEFT) COMPARISON: None FINDINGS: No acute fracture or dislocation. Bones are slightly demineralized. Mildjoint space narrowing at the first metatarsophalangeal joint andinterphalangeal joints. Os peroneus present. Corticated lucency in thelateral aspect of the fourth metatarsal base. Calcific enthesopathy of the Achilles tendon attachment with associatedplantar calcaneal spur. IMPRESSION: Mild forefoot degenerative change. No findings to suggest active psoriatic arthritis. Corticated lucency in the lateral aspect of the fourth metatarsal base,may reflect a para-articular erosion. us Erin Patel MD, MPH IMG XR LOWER EXTREMITY F inal Result documented in this encounter Visit Diagnoses Diagnosis Psoriasis Other psoriasis Polyarticular osteoarthritis Generalized osteoarthrosis, involving multiple sites Psoriasis Other psoriasis Polyarticular osteoarthritis Generalized osteoarthrosis, involving multiple sites documented in this encounter Additional Health Concerns Assessment Noted Time PHQ-9 Depression Total Score: 8 02/21/20 20 11:39 AM EDT PHQ-2 Depression Total Score: 0 10/18/19 23 3:34 PM EDT documented as of this encounter Care Teams Jumpbasting Canvas Baster Relationship Specialty Start Date End Date Charo Siu NP PCP - General Family Medicine 05/29/19 07/11/23 Philippe Torres CNP [address] [place] [address], [address] [place] [address] PCP - General Adult Health 07/12/23 07/16/23 Jaun Yarbrough MD [address] [place] [address], [address] [place] [address] [email or web address] PCP - General Internal Medicine 07/17/23 documented as of this encounter Additional Source Comments The information contained in this document represents components of the legal health record. It is not the complete legal health record.[facility]
--- OUTSIDE RECORDS SUMMARY | 2025-01-09 06:28 | XMS_ITS | Encounter Summary ---
Author Organization [facility] Address [address] [facility] [address] [place] [address] Phone Care Team Providers Care Cheerleading Coach Name Role Phone hCaro Siu FORGING PRESS LEVER TENDER Primary Care Provider [phone] Philippe Torres CNP Primary Care Provider [phone] Jaun Yarbrough MD Primary Care Provider [phone] Encounter Details Date Type Department Care Team (Late st Contact Info) Description 10/28/2022 Ancillary Orders [facility] Orthopedics & Sports Medicine [address] [place] [phone] Katherine Rosenberg MD [address] [place] [address] [facility] [place], [place] [id number] [email or web address] Social History Tobacco Use Types Packs/Day Years [...] high school, GED, job training, learning the [place] language, technical skills, or developing parenting skills)? [...] Description 01/15/2025 8:30 AM EDT Office Visit [facility] Orthopedics & Sports Medicine [address] [place] [address] Freddy Garcia DO [address] [place] [address] Orthopedics & Sports Medicine, [facility] [place] [address] 04/11/2025 8:00 AM EST Office Visit [address] [place] [address] Jaun Yarbrough MD [address] [place] [address], [address] [place] [address] 08/06/2025 7:30 AM EDT Office Visit [facility] [address] [place] [address] Dr 3rd Floor, [address] [place] [address] Celia Collier DNP [address] [facility], [address] [place] [address] 09/01/2025 9:30 AM EDT Office Visit [facility] Neurology [address] [place] [address] Joe Hill MD [address] [place] [address], 2nd [place] [address] 11/06/2025 8:40 AM EDT Office Visit [facility] Rheumatology [address] [place] [address] Erin Patel MD, MPH [address] [place] [address], [address] [place] [address] documented as of this encounter Visit Diagnoses Not on filedocumented in this encounter Additional Health Concerns Assessment Noted Time PHQ-9 Depression Total Score: 8 02/21/20 20 11:39 AM EDT PHQ-2 Depression Total Score: 0 10/18/19 23 3:34 PM EDT documented as of this encounter Care Teams Cheerleading Coach Relationship Specialty Start Date End Date Charo Siu NP PCP - General Family Medicine 05/29/19 07/11/23 Philippe Torres, GRAEME [address] [place] [address], [address] [place] [address] [email or web address] PCP - General Adult Health 07/12/23 07/16/23 Jaun Yarbrough MD [address] [place] [address], [address] [place] [address] [email or web address] PCP - General Internal Medicine 07/17/23 documented as of this encounter Additional Source Comments The information contained in this document represents components of the legal health record. It is not the complete legal health record.[facility]
--- OUTSIDE RECORDS SUMMARY | 2025-01-09 06:28 | XMS_ITS | Encounter Summary ---
Author Organization [facility] Address [address] [facility] [address] [place] [address] Phone Care Team Providers Care Hoop Maker Machine Name Role Phone Charo Siu SAFETY DEPOSIT SUPERVISOR Primary Care Provider Philippe Torres CNP Primary Care Provider [phone] Jaun Yarbrough MD Primary Care Provider [phone] Encounter Details Date Type Department Care Team (Late st Contact Info) Description 03/08/2023 Ancillary Orders [facility] Orthopedics & Sports Medicine [address] [place] [phone] Katherine Rosenberg MD [address] [place] [address] [facility] [place], [place] [address] [email or web address] Social History Tobacco Use Types Packs/Day Years [...] high school, GED, job training, learning the Arabic language, technical skills, or developing parenting skills)? [...] Description 01/15/2025 8:30 AM EDT Office Visit [facility] Orthopedics & Sports Medicine [address] [place] [address] Freddy Garcia DO [address] [place] [address] Orthopedics & Sports Medicine, [place] [address] 04/11/2025 8:00 AM EST Office Visit [address] [place] [address] Jaun Yarbrough MD [address] [place] [address], [address] [place] [address] 08/06/2025 7:30 AM EDT Office Visit [facility] [address] [place] [address] Dr 3rd Floor, [address] [place] [address] Celia Collier DNP [address] [facility], [address] [place] [address] 09/01/2025 9:30 AM EDT Office Visit [facility] Neurology [address] [place] [address] Joe Hill MD [address] [place] [address], 2[address] [place] [address] 11/06/2025 8:40 AM EDT Office Visit [facility] Rheumatology [address] [place] [address] Erin Patel MD, MPH [address] [place] [address], [address] [place] [address] documented as of this encounter Visit Diagnoses Not on filedocumented in this encounter Additional Health Concerns Assessment Noted Time PHQ-9 Depression Total Score: 8 02/21/20 20 11:39 AM EDT PHQ-2 Depression Total Score: 0 01/25/20 23 12:09 PM EDT documented as of this encounter Care Teams Hoop Maker Machine Relationship Specialty Start Date End Date Charo Siu, SAFETY DEPOSIT SUPERVISOR PCP - General Family Medicine 05/29/19 07/11/23 Philippe Torres, GRAEME [address] [place] [address], [address] [place] [address] [email or web address] PCP - General Adult Health 07/12/23 07/16/23 Jaun Yarbrough MD [address] [place] [address], [address] [place] [phone] PCP - General Internal Medicine 07/17/23 documented as of this encounter Additional Source Comments The information contained in this document represents components of the legal health record. It is not the complete legal health record.[facility]
--- OUTSIDE RECORDS SUMMARY | 2025-01-09 06:28 | XMS_ITS | Clinical Summary ---
Author Organization [facility] Address [address] [place] [phone] Phone Care Team Providers Care Manager Secondary Name Role Phone Jaun Yarbrough MD Primary Care Provider [phone] Allergies Active Allergy Reactions Criticality Noted Date Comments Amitriptyline Anxiety Low 03/14/2017 Celecoxib Nausea and/or Vomiting 11/01/2022 Nausea Hydralazine Nausea and/or Vomiting 06/20/2019 Lisinopril Cough 04/11/2018 08/07/2018 Per Pt. she wanted Lisinopril to be added to Allergy List. Mold Extracts 08/09/2018 Sulfamethoxazole-Trimet hoprim Diarrhea,Hives High 03/14/2017 Pt states causes C. diff Sumatriptan 09/22/2023 Neck and chest pain Topiramate 12/10/2020 Metallic taste Other reaction(s): Metallic taste Medications cyanocobalamin, vitamin B-12, 250 MCG tablet Take 500 mcg by mouth daily. 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 60 mL 1 022 Active acetaminophen (TYLENOL) 500 MG tablet Take 1,000 mg by mouth. Using PRN Active pyRIDostigmine (MESTINON) 60 mg tablet Take 60 mg by mouth 3 (three) times a day. As needed Active cloNIDine HCL (CATAPRES) 0.1 MG tablet take 1 tablet by mouth 3 times a day. 270 tablet 3 024 Active irbesartan (AVAPRO) 150 MG tabletIndications :Essential hypertension take 1 tablet by mouth every day 90 tablet 3 024 Active hydroCHLOROthiazi de 12.5 mg capsuleIndication s:Hypertension TAKE 1 CAPSULE BY MOUTH EVERY DAY 90 capsule 3 024 Active PARoxetine (PAXIL) 30 MG tabletIndications :Anxiety TAKE 1 TABLET BY MOUTH ONCE DAILY IN THE MORNING 90 tablet 3 024 Active betamethasone, augmented, (DIPROLENE) 0.05 % ointmentIndicatio ns:Psoriasis Apply topically 2 (two) times a day. 50 g 5 024 Active prochlorperazine (COMPAZINE) 10 MG tablet Take 1 tablet (10 mg total) by mouth daily as needed. 30 tablet 1 024 Active rimegepant (NURTEC ODT) 75 mg tabletIndications :Intractable chronic migraine without aura and without status migrainosus Take 1 tablet (75 mg total) by mouth every other day. 16 tablet 11 025 Active cyclobenzaprine (FLEXERIL) 10 MG tabletIndications :Chronic tension-type headache, not intractable Take 1 tablet (10 mg total) by mouth daily as needed (As needed). 30 tablet 025 Active albuterol 90 mcg/actuation inhalerIndication s:Chronic obstructive pulmonary disease with acute exacerbation Inhale 2 puffs into the lungs every 4 (four) hours as needed for wheezing. 18 g 2 025 Active BREO ELLIPTA 100-25 mcg/dose inhalerIndication s:Moderate persistent asthma without complication Inhale 1 puff into the lungs daily. 90 each 3 025 2025 Active montelukast (SINGULAIR) 10 mg tabletIndications :Mild persistent asthma without complication Take 1 tablet (10 mg total) by mouth nightly at bedtime. 90 tablet 3 025 Active amLODIPine (NORVASC) 10 MG tabletIndications :Essential hypertension Take 1 tablet (10 mg total) by mouth every morning. 90 tablet 3 025 Active ALPRAZolam (XANAX) 0.5 MG tabletIndications :Anxiety Take 1 tablet (0.5 mg total) by mouth nightly at bedtime as needed for sleep. 30 tablet 025 Active gabapentin (NEURONTIN) 100 MG capsule Take 1 capsule by mouth 2 (two) times a day. 025 Active LINZESS 72 mcg capsule Active ondansetron (ZOFRAN-ODT) 4 MG disintegrating tabletIndications :Chronic tension-type headache, not intractable Take 1 tablet (4 mg total) by mouth every 8 (eight) hours as needed for nausea. 30 tablet 1 025 Active naproxen sodium (ALEVE) 220 mg Cap Take 2 tablets by mouth daily. Active dilTIAZem (CARDIZEM CD) 120 MG 24 hr capsuleIndication s:Hypertension Take 1 capsule (120 mg total) by mouth every morning. 90 capsule 3 025 Active busPIRone (BUSPAR) 10 MG tabletIndications :Anxiety,Moderate episode of recurrent major depressive disorder TAKE 1 TABLET BY MOUTH THREE TIMES A DAY 270 tablet 3 025 Active methylphenidate HCl (METADATE ER) 20 MG ER tabletIndications :Attention deficit disorder (ADD) without hyperactivity Take 1 tablet (20 mg total) by mouth every morning. 28 tablet 025 Active methylphenidate HCl (RITALIN) 10 MG tabletIndications :Attention deficit disorder (ADD) without hyperactivity Take 1 tablet (10 mg total) by mouth 2 (two) times a day for 28 days. 56 tablet 025 2024 Active butalbital-acetam inophen-caffeine (FIORICET, ESGIC) 50-325-40 mg per tabletIndications :Complex regional pain syndrome type 1 of left lower extremity Take 1 tablet by mouth once as needed for pain (specific location in comments). 15 tablet 025 Active buPROPion (WELLBUTRIN XL) 300 MG ER 24 hr tablet TAKE 1 TABLET BY MOUTH EVERY DAY 90 tablet 3 025 Active buPROPion (WELLBUTRIN XL) 300 MG ER 24 hr tablet take 1 tablet by mouth every day 90 tablet 3 024 2024 Discontinued butalbital-acetam inophen-caffeine (FIORICET, ESGIC) 50-325-40 mg per tabletIndications :Complex regional pain syndrome type 1 of left lower extremity TAKE ONE TABLET BY MOUTH EVERY DAY NEEDED FOR PAIN 15 tablet 025 2024 Discontinued(R eorder) methylphenidate HCl (RITALIN) 10 MG tabletIndications :Attention deficit disorder (ADD) without hyperactivity Take 1 tablet (10 mg total) by mouth 2 (two) times a day for 28 days. 56 tablet 025 2024 Discontinued(R eorder) Active Problems Problem Noted Date Diagnosed Date Intractable migraine with aura without status mi grainosus 10/07/2024 Overview (10/07/2024): Overuses fioricet Dr Hill rx'd Nurtec in July 2024, helping. Limit fioricet to 7 tabs/mo Traumatic complete tear of right rotator cuff Overview (04/08/2024): Had repair January 2024 Assessment & Plan (04/08/2024 8:18 AM EST): Doing better, weaning off tramadol Arrhythmia 06/12/2023 Shortness of breath 06/12/2023 Assessment & Plan (08/06/2024 7:43 AM EDT): She had complained of having some shortness of breath. We did do an echocardiogram which was reassuringly normal. Her shortness of breath she reports had improved after increasing the use of her Breo. Assessment & Plan (08/09/2023 7:55 AM EDT): Current stress test and echo do not reveal any cardiac reason for shortness of breath. Patient feels night have been related to long COVID. Her symptoms have resolved. Assessment & Plan (06/12/2023 12:08 PM EST): We will investigate with some cardiovascular tests Encounter for methotrexate monitoring 06/06/2023 Overview (06/06/2023): HCV NR 2019 Assessment & Plan (06/06/2023 9:14 AM EST): Updated baseline labs prior to methotrexate start. No excess alcohol. Written medication information provided for patient review today. Psoriatic arthritis 06/06/2023 Overview (11/06/2024): Plain film 10/2022 para-articular erosion right 1st MTP, essentially stable on repeat imaging 06/2024 Methotrexate July-September 2023; dc'd by patient secondary to nausea and lack of perceived benefit Benefit from 05/2024 intra-articular steroid injection to right first MTP waned after approximately 1 month Assessment & Plan (11/06/2024 9:43 AM EDT): Severe psoriasis has been limited to the plantar aspect of the right foot, and joint involvement apparently limited to the right first MTP. Patient did not tolerate methotrexate trial as above. She continues to have right great MTP pain, inflammation, and deformity. She does have podiatry evaluation scheduled for later this month. I advised her that at this point I would recommend that her marble installer supervisor guide care, as systemic therapy may not be the best option for severe monoarticular disease. Regarding her apparently mechanical coccygeal and hip pain, she has had significant symptomatic benefit from OTC naproxen plus turmeric supplementation. She is following with [facility] and reports that MRI of her pelvis is planned but not yet scheduled. Certainly if there is MRI evidence concerning for sacroiliitis, that would be a clear indication to reevaluate role of systemic therapy. Assessment & Plan (05/09/2024 3:19 PM EST): Repeat intra-articular steroid injection to right 1st MTP today as detailed in procedure note. D/w patient that tx of underlying disease, with either resumption of methotrexate or alternative DMARD, is indicated, kevin in context of erosive changes seen on plain film and 5th PIP flexion deformities. She is amenable to updated foot films and baseline hand films prior to her next appt and we will re-visit methotrexate versus leflunomide at that time. Assessment & Plan (04/08/2024 8:18 AM EST): She states symptoms are mild and controlled right now Assessment & Plan (06/06/2023 9:15 AM EST): Start methotrexate pending confirmation of persistently nl baseline labs; will follow clinically re: decreased duration of AM stiffness. Of note axial disease is predominantly OA. Thrush 05/25/2023 Assessment & Plan (05/25/2023 10:37 AM EST): Has thrush in setting or recovering from covid- Could be immune system is taxed and the result is current infection/ thrush. Coating on tongue- all other mucosa is WNL- she has had no relief with nystatin swish alone- added Mycelex cris- she will let us know if it is not resolving. COVID 05/25/2023 Assessment & Plan (05/25/2023 10:36 AM EST): Reports had Covid about three weeks ago. Overall she is improved- Exam is reassuring. Cough is improving- SOB still pres- but again improved. Will monitor. Coccydynia 02/01/2023 Assessment & Plan (02/01/2023 9:48 AM EDT): Further mgmt deferred to PCP given that coccydynia is not secondary to underlying inflammatory arthritis Chronic foot pain, left 02/01/2023 Overview (02/01/2023): Minor trauma winter 2021; plain film 10/2022 ? erosion 4th metatarsal base - atypical appearance for inflammatory arthritis Assessment & Plan (02/01/2023 9:47 AM EDT): I suspect x-ray findings are secondary to trauma rather than to inflammatory arthritis; will pursue CT given persistent pain Polyarticular osteoarthritis 10/28/2022 Overview (06/06/2023): R > L hip, bl knees Both meloxicam and celecoxib resulted in intolerable nausea Patient stopped diclofenac so she should take ibuprofen for h/a Assessment & Plan (02/01/2023 9:45 AM EDT): Remain unable to confirm underlying or co-morbid psoriatic arthritis despite prolonged AM stiffness. Trial oral diclofenac, starting at lowest possible dose 25 mg twice daily as needed and can increase dose pending tolerability / efficacy. CT left foot in context of abnl plain film findings and h/o minor trauma. Assessment & Plan (10/28/2022 9:47 AM EDT): No historical physical serologic or radiographic evidence to date concerning for underlying or co-morbid psoriatic or other inflammatory arthritis. Dx and general tx strategy reviewed with patient today; dedicated plain films ordered. Trial celecoxib to replace current OTC naproxen. Unlikely to need ongoing rheumatology-specific mgmt but will plan for one f/u to review x-ray findings and response to celecoxib / intra-articular steroid injection to right great toe today as below. Osteoarthritis of first meta tarsophalangeal (MTP) joint of right foot 10/28/2022 Overview (02/01/2023): Plain film 10/2022 periarticular erosion s/o gout Assessment & Plan (06/06/2023 9:12 AM EST): Continued symptomatic benefit since 10/2022 intra-articular steroid injection; patient advised to f/u with communicable disease specialist re: recent onset of numbness of this great toe, which I suspect has l-spine origin. Assessment & Plan (02/01/2023 9:44 AM EDT): Symptomatically much improved since recent intra-articular steroid injection; patient to call for expedited evaluation and ideally diagnostic arthrocentesis if she has any acutely swollen joints Assessment & Plan (10/28/2022 9:44 AM EDT): intra-articular steroid injection today as detailed in procedure note; suspect some right sided MTP pain is referred from right hip and/or right knee Attention deficit hyperactiv ity disorder (ADHD), combined type 10/19/2022 Fibromyalgia 08/23/2022 Assessment & Plan (06/12/2023 12:08 PM EST): Present but stable Tinea pedis of both feet 03/10/2020 Mild episode of recurrent major depressive disor jenniffer 03/10/2020 Overview (03/08/2024): Has been on multiple antidepressants for years including Paxil and Wellbutrin. Also has agoraphobia. Assessment & Plan (03/08/2024 3:21 PM EDT): Wean off gabapentin, discussed going down by 300 mg at every few days Chronic idiopathic constipation 12/25/2019 Family history of colon cancer 12/25/2019 Overview (10/07/2024): COLO 2021, recall 2026 Dr De La Fuente Seasonal allergic rhinitis 07/24/2019 Psoriasis 07/24/2019 Overview (10/28/2022): Predominantly bl feet; seen by derm in [place] and tx'd with [place] steroid Assessment & Plan (04/08/2024 8:18 AM EST): Betamethasone refill sent Assessment & Plan (10/28/2022 9:44 AM EDT): No significant active psoriasis / managed with topical therapies including coal tar and salicylic acid as needed; no clinical evidence concerning for psoriatic arthritis Myasthenia gravis 10/10/2018 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 She is on amlodipine 10 mg daily, clonidine 0.1 mg 3 times daily, diltiazem 120 mg daily, hydrochlorothiazide 12.5 mg daily, Avapro 150 mg daily which she will continue without change. She is encouraged follow heart healthy diet including low-sodium and to exercise. Assessment & Plan (04/08/2024 8:17 AM EST): Stable Assessment & Plan (08/09/2023 7:55 AM EDT): BP slightly elevated today at 140/80, she reports BP at home normal 120/80. She will remain on current meds without change, diltiazem 120 mg daily, clonidine 0.1 mg three times daily, hydrochlorothiazide 12.5 mg daily. Ibesartan 150mg daily . She is encouraged to follow a low sodium diet and continue to exercise. Assessment & Plan (06/12/2023 12:07 PM EST): Blood pressure is well-controlled today to the guidelines Assessment & Plan (11/16/2020 8:40 AM EDT): This seems to be reasonably well controlled she does have a sigmoid septum which is not usually tied to significant hypertension. We are going to order her a renal artery duplex as above Knee pain 04/05/2017 Moderate persistent asthma without complication 04/05/2017 Assessment & Plan (10/07/2024 8:10 AM EDT): Try trelegy at her request, allergies are worsening her asthma Assessment & Plan (06/12/2023 12:08 PM EST): She does have dyspnea on exertion which we will check with a stress test and echo but if they are negative this will all be pulmonary disease Assessment & Plan (05/25/2023 10:33 AM EST): Lung exam CTA today- stable cont same Mixed hyperlipidemia 04/05/2017 Assessment & Plan (08/06/2024 7:43 AM EDT): Continue to follow her healthy diet and exercise. Resolved Problems Problem Noted Date Diagnosed Date Resolved Date Cigarette nicotine dependenc e without complication 04/05/2017 10/19/2022 Assessment & Plan (11/16/2020 8:41 AM EDT): She smoked for very long period of time but recently quit Encounters Date Type Department Care Team Description 01/01/[address] [place] [address] Jaun Yarbrough MD Medication Refill 12/25/[address] [place] [address] Jaun Yarbrough MD Medication Refill 12/24/[address] [place] [address] Monique Smith LPN Medication Refill (CSRP methylphenidate 20 mg) 12/13/[address] [place] [address] Monique Smith LPN Medication Refill (CSRP methylphenidate 10 mg) 11/29/2024 Orders Only [address] [place] [address] ProviderPushpa MD 11/26/[address] [place] [address] Monique Smith LPN Medication Refill (CSRP ) 11/21/2024 11:00 AM EDT Office Visit [facility] Neurology [address] [place] [address] [place] [address] Joe Hill MD Intractable chronic migraine without aura and without status migrainosus (Primary Dx); MG, ocular (myasthenia gravis) 11/21/[address] [place] [address] Jaun Yarbrough MD Medication Refill 11/21/2024 Refill [facility] [address] [place] [address] Jaun Yarbrough MD Medication Refill 11/06/2024 9:10 AM EDT Office Visit [facility] Rheumatology [address] [place] [address] Erin Patel MD, MPH Psoriatic arthritis (Primary Dx) 11/06/2024 8:50 AM EDT - 11/06/2024 11:59 PM EDT Hospital Encounter [facility] [address] [place] [address] Michelle Stokes NP Discharge Disposition: Home or Self Care 10/29/[address] [place] [address] Monique Smith LPN Medication Refill (CSRP methylphenidate 20 mg) 10/25/[address] [place] [address] Jaun Yarbrough MD Medication Refill from Last 3 Months Immunizations Immunization Administration Dates Next Due COVID-19 (Pre-02/27) Pfizer Vaccine, mRNA, PF 08/26/2020,08/04/2020 INFLUENZA, SPLIT VIRUS, TRIVALENT PF 04/08/2024, 01/17/2017,03/02/2016 INFLUENZA, SPLIT VIRUS, TRIV ALENT W/ PRESERVATIVE IM 02/20/2014,01/25/2012 Influenza Quadrivalent MDCK Preservative Free IM 03/07/2022 Influenza Quadrivalent Prese rvative Free IM 01/24/2023,03/12/2021,01/21/2020,03/12,02/20/2018 Influenza Quadrivalent w/ Pr eservative IM 02/18/2015 Influenza, Unspecified Formulation 02/09/2009 Pneumococcal conjugate PCV13 11/15/2018 Pneumococcal polysaccharide PPSV23 02/20/2014 RSV Vaccine (monovalent, adjuvanted) 04/09/2024 Td, unspecified formulation 09/29/2001 Tdap 09/22/2020,12/16/2009 Zoster recombinant 05/15/2020,01/21/2020 Family History Medical History Relation Comments Colon cancer Brother Diabetes Brother No Known Problems Daughter 1 Hypertension Daughter 2 Kidney disease Daughter 2 CV disease Father Cardiomyopathy Father Hypertension Father Hypertension Mother Hypertension Sibling No Known Problems Son 1 No Known Problems Son 2 Relation Status Comments Brother Daughter 1 Alive Daughter 2 Alive Father (Age 52) Mother Sibling Son 1 Alive Son 2 Alive Social History Tobacco Use Types Packs/Day Years Used Date Smoking Tobacco: Former Cigarettes 0.3 22 0 12/05/1997 - 12/06/2019 Smokeless Tobacco: Never Tobacco Cessation:Counseling Given: Not Answered Comments:3-5 daily Alcohol Use Standard Drinks/Week Comments [...] on file Sexual Orientation Not on file Last Filed Vital Signs Vital Sign Reading Time Taken Comments Blood Pressure 120/70 11/06/2024 9:00 AM EDT Pulse 85 11/06/2024 9:00 AM EDT Temperature 36.4 C (97.5 F) 10/07/2024 7:49 AM EDT Respiratory Rate 18 01/11/2024 11:50 AM EDT Oxygen Saturation 97% 11/06/2024 9:00 AM EDT Inhaled Oxygen Concentration - - Weight 68.5 kg (151 lb) 11/06/2024 9:00 AM EDT w ith shoes Height 165.8 cm (5' 5.28 ) 11/06/2024 9:00 AM ED T Body Mass Index 24.92 11/06/2024 9:00 AM EDT Plan of Treatment Upcoming Encounters Date Type Department Care Team (Late st Contact Info) Description 01/15/2025 8:30 AM EDT Office Visit [facility] Orthopedics & Sports Medicine [address] [place] [phone] Freddy Garcia DO [address] [place] [address] Orthopedics & Sports Medicine, [facility] [place] [address] 04/11/2025 8:00 AM EST Office Visit [facility] [address] [place] [address] [place] [address] Jaun Yarbrough MD [address] [place] [address], [address] [place] [address] 08/06/2025 7:30 AM EDT Office Visit [facility] [address] [place] [address] Dr [address] Floor, [address] [place] [address] Celia Collier, ANTHONY [address] [facility], [address] [place] [address] 09/01/2025 9:30 AM EDT Office Visit [facility] Neurology [address] [place] [phone] Joe Hill MD [address] [place] [address], [address] [place] [address] 11/06/2025 8:40 AM EDT Office Visit [facility] Rheumatology [address] [place] [address] [place] [address] Erin Patel MD, MPH [address] [place] [address], [address] [place] [address] Health Maintenance Due Date Last Done Comments FIT TEST 08/23/2008 FOBT 08/23/2008 SIGMOIDOSCOPY 08/23/2008 VIRTUAL COLONOSCOPY 08/23/2008 PNEUMOCOCCAL VACCINES (50+ years) (3 of 3 - PCV20 or PCV21) 11/16/2023 11/15/2018, 02/20/2014 COLOGUARD 09/21/2024 09/21/2021 INFLUENZA VACCINE (#1) 2024 , 01/24/2023, 03/07/2022, Additional history exists BLOOD PRESSURE 05/09/2025 11/06/2024 CREATININE LEVEL 09/26/2025 09/26/2024, , 07/19/2023, Additional history exists POTASSIUM LEVEL 09/26/2025 09/26/2024, 12/07, 07/19/2023, Additional history exists DEPRESSION SCREENING 10/06/2025 10/06/2024, 02/21/20 20 MAMMOGRAM 04/25/2026 04/25/2024, 11/0 08/2021, 07/04/2018 PAP SMEAR 07/27/2026 07/27/2021, 07/07, 06/13/2014 COLONOSCOPY 12/02/2026 12/02/2021 COLORECTAL CANCER SCREENING 12/02/2026 LIPID PANEL 06/06/2028 06/06/2023, 07/06, 03/06/2019, Additional history exists SMOKING STATUS SCREENING (Every 5 Years) 11/06/2029 11/06/2024 Adult Td,Tdap Booster 09/22/2030 09/22/2020 , 12/16/2009, 09/29/2001 HEPATITIS C SCREENING Completed 03/06/2019, 019 HIV ONE-TIME SCREENING (18-65 YEARS) Completed 03/06/2019 ZOSTER VACCINES Completed 05/15/2020, 01/21/2020 COVID-19 VACCINE Completed 04/09/2024, , 05/14/2021, Additional history exists RSV VACCINE Completed 04/09/2024 HEPATITIS A VACCINES Aged Out No long er eligible based on patient's age to complete this topic HIB VACCINES Aged Out No longer eligi ble based on patient's age to complete this topic MENINGOCOCCAL VACCINES (ACWY) Aged Out No longer eligible based on patient's age to complete this topic MENINGOCOCCAL VACCINES (B) Aged Out N o longer eligible based on patient's age to complete this topic Medical Devices Implanted Type Area Cheese Tester Device Identifier Shelf Expiration Date Model / Serial / Lot Clip Clip Description:sympathectomy Healicoil Regenesorb Implanted:Qty: 2 on 01/11/2024 by Freddy Garcia DO at [facility] Right: Shoulder 05/17/2026 [id number] / / [id number] [employer] Suture 4.5mm Arthroscopy Reelx Stt Peek Ss Core Knotless Shapr Tip Expandable Bx/5ea - [id number] Implanted:Qty: 3 on 01/11/2024 by Freddy Garcia DO at [facility] Right: Shoulder MINI ENDOSCOPY [id number] 06/11/2025 3910-600-0 62 / / [id number] Procedures Procedure Name Priority Date/Time Associated Diagnosis Comments OUTSIDE IMAGING Routine 11/29/2024 10:33 AM EDT CALPROTECTIN, STOOL Routine 11/06/2024 8 :56 AM EDT Slow transit constipation COMPREHENSIVE METABOLIC PANEL Routine 09/26/2024 9:35 AM EDT Slow transit constipation BI MAMMOGRAM SCREENING (BILATERAL) Routine 04/25/2024 11:59 AM EST Encounter for screening mammogram for malignant neoplasm of breast LIPID PANEL Routine 06/06/2023 9:16 AM EST Mixed hyperlipidemia HM COLONOSCOPY FOR RESULT ENTRY ONLY Routine 12/02/2021 HM PAP SMEAR FOR RESULT ENTRY ONLY Routine 07/27/2021 HEPATITIS C ANTIBODY, QUALITATIVE Routine 03/06/2019 12:08 PM EDT Need for hepatitis C screening test from Last 3 Months or Most Recently Relevant to Health Maintenance Results * Outside Imaging Report Only (11/29/2024 10:33 AM EDT) us Historical Provider MD RODRÍGUEZ XR CHEST Final Res ult * Calprotectin, stool (11/06/2024 8:56 AM EDT) STOOL CALPROTECTIN 17 mcg/g [facility] Comment: (NOTE) Reference Range: <50 Normal 50-120 Borderline >120 Elevated Calprotectin in Crohn's disease and ulcerative colitis can be five to several thousand times above the reference population (50 mcg/g or less). Levels are usually 50 mcg/g or less in healthy patients and with irritable bowel syndrome. Repeat testing in 4-6 weeks is suggested for borderline values. Stool (Stool) 11/06/2024 8:5 6 AM EDT 11/06/2024 9:05 AM EDT us Michelle Stokes DROP WIRE STRINGER BODY FLUIDS AND STOOLS ORDERABLES Final Result [facility] [address] [place] [address], [facility] [phone] * (ABNORMAL) Comprehensive metabolic panel (09/26/2024 9:35 AM EDT) SODIUM 137 133 - 146 mmol/L [facility] POTASSIUM 4.1 3.3 - 5.1 mmol/L [facility] CHLORIDE 100 96 - 108 mmol/L [facility] CO2 28 21 - 35 mmol/L [facility] BUN 27(H) 6 - 19 mg/dL [facility] CREATININE 0.80 0.5 - 1.5 mg/dL [facility] GLUCOSE 106(H) 70 - 99 mg/dL [facility] ALBUMIN 4.4 3.9 - 4.8 g/dL [facility] TOTAL PROTEIN 6.8 6.5 - 8.0 g/dL [facility] CALCIUM 9.7 8.4 - 10.3 mg/dL [facility] ALKALINE PHOSPHATASE 94 39 - 117 U/L [facility] TOTAL BILIRUBIN <0.2 0.0 - 1.2 mg/dL [facility] AST 30 0 - 37 U/L [facility] ALT 26 0 - 40 U/L [facility] GLOBULIN 2.4 1 - 4.8 g/dL [facility] EGFR 84 >59 mL/min/1.7 3m2 [facility] Comment:Estimated glomerular filtration rate calculated using the CKD-EPI refit equation. ANION GAP 13 10 - 20 mmol/L [facility] Blood 09/26/2024 9:35 AM EDT 09/26/2024 9:42 AM EDT Michelle Aric Stokes DROP WIRE STRINGER LAB BLOOD ORDER HAYDEE Final Result Performing Organization Address City/[facility]/ZIP Co de Phone Number [address] [address] * Mammogram Screening (Bilateral) (04/25/2024 11:59 AM EST) Anatomical Region Laterality Modality Breast Left, Breast Right, Breast Bilateral Bila teral Breast Screening us Jaun Yarbrough MD IMG MG EXAMS Final Result * (ABNORMAL) Lipid panel (06/06/2023 9:16 AM EST) HDL 80 mg/dL [facility] Comment: Interpretation <40 mg/dL: Low HDL cholesterol (major risk factor for CHD) Greater than or equal to 60 mg/dL: High HDL cholesterol ( negative risk factor for CHD) HDL - cholesterol is affected by a number of factors, e.g. smoking, excerise, hormones, sex and age. CHOLESTEROL 185 0 - 240 mg/dL [facility] TRIGLYCERIDES 94 30 - 160 mg/dL [facility] LDL 86 50 - 129 mg/dL [facility] Comment: LDL levels in terms of risk for coronary heart disease: <100 mg/dL: Optimal 100-129 mg/dL: Near or above optimal 130-159 mg/dL: Borderline high 160-189 mg/dL: High >190 mg/dL: Very High CARDIAC RISK RATIO 2.3(L) 3.3 - 4.4 C [facility] Blood 06/06/2023 9:16 AM EST 06/06/2023 9:18 AM EST us Charo Siu NP LAB BLOOD ORDERABLES Final Resu lt Performing Organization Address City/[facility]/ZIP Co de Phone Number [address] [address] * HM COLONOSCOPY FOR RESULT ENTRY ONLY (12/02/2021) us Historical Provider HEALTH MAINTENANCE Edited Result - Final * HM PAP SMEAR FOR RESULT ENTRY ONLY (07/27/2021) HM Pap smear NILM, HPV neg us Historical Provider HEALTH MAINTENANCE Final Result * Hepatitis C antibody, qualitative (03/06/2019 12:08 PM EDT) HCV NON-REACTIV E NON-REACTI VE [facility] Blood 03/06/2019 12:0 8 PM EDT 03/06/2019 12:14 PM EDT us Charo Siu NP LAB BLOOD ORDERABLES Final Resu lt [address] [address] from Last 3 Months or Most Recently Relevant to Health Maintenance Insurance [facility] MEDICARE PPO BLUE REPLACEMENT [facility] MEDICARE PPO BLUE REPLACEMENT [facility] MEDICARE PPO BLUE REPLACEMENT [facility] MEDICARE PPO BLUE REPLACEMENT [facility] MEDICARE PPO BLUE REPLACEMENT [facility] MEDICARE PPO BLUE REPLACEMENT [facility] MEDICARE PPO BLUE REPLACEMENT [facility] MEDICARE PPO BLUE REPLACEMENT [place] BLUE REPLACEMENT Care Teams Manager Secondary Relationship Specialty Start Date End Date Jaun Yarbrough MD [address] [place] [address], [address] [place] [address] [email or web address] PCP - General Internal Medicine 07/17/23 Additional Source Comments The information contained in this document represents components of the legal health record. It is not the complete legal health record.[facility]
--- OUTSIDE RECORDS SUMMARY | 2025-01-09 06:28 | XMS_ITS | Encounter Summary ---
Author Organization [facility] Address [address] [place] [address] Phone Care Team Providers Care Digital Print Operator Name Role Phone Jaun Yarbrough MD Primary Care Provider [phone] Encounter Details Date Type Department Care Team (Latest Contact Info) Description 09/26/2024 Transcribe Orders [facility] [address] [address] Michelle Stokes, EDD [address] [place] [address] Slow transit constipation (Primary Dx) Social History Tobacco Use Types [...] [facility] & [facility] Medicine [address] [place] [address] Freddy Garcia DO [address] [place] [address] Orthopedics & Sports Medicine, [facility] [place] [address] 04/11/2025 8:00 AM EST Office Visit [facility] Medicine [address] [place] [address] [place] [address] Jaun Yarbrough MD [address] [place] [address], [address] [place] [address] 08/06/2025 7:30 AM EDT Office Visit [facility] [address] [place] [address] [address]rd Floor, [address] [place] [address] Celia Collier DNP [address] [place] [address], [address] [place] [address] 09/01/2025 9:30 AM EDT Office Visit [facility] Neurology [address] [place] [address] [place] [address] Joe Hill MD [address] [place] [address], 2nd [place] [address] 11/06/2025 8:40 AM EDT Office Visit [facility] Rheumatology [address] [place] [address] [place] [address] Erin Patel MD, MPH [address] [place] [address], [address] [place] [address] documented as of this encounter Results * Calprotectin, stool (11/06/2024 8:56 AM EDT) STOOL CALPROTECTIN 17 mcg/g [facility] Comment: (NOTE) Reference Range: <50 Normal 50-120 [...] 6 AM EDT 11/06/2024 9:05 AM EDT Michelle Stokes GREENHOUSE MANAGER BODY FLUIDS AND STOOLS ORDERABLES Final Result [facility] [address] [place] [address], [facility] [phone] * C-Reactive Protein (09/26/2024 9:35 AM EDT) [facility] C REACTIVE PROTEIN <3.0 0.0 - 4.0 mg/L [facility] Blood 09/26/2024 9:35 AM EDT 09/26/2024 9:42 AM EDT Michelle Stokes NP LAB BLOOD ORDER HAYDEE Final Result Performing Organization Address City/[facility]/ZIP Co de Phone Number [address] [address] * (ABNORMAL) Comprehensive metabolic panel (09/26/2024 9:35 AM EDT) Pathologist [facility] SODIUM 137 133 - 146 mmol/L [facility] POTASSIUM 4.1 3.3 - 5.1 mmol/L [facility] CHLORIDE 100 96 - 108 mmol/L [facility] CO2 28 21 - 35 mmol/L [facility] BUN 27(H) 6 - 19 mg/dL [facility] CREATININE 0.80 0.5 - 1.5 mg/dL [facility] GLUCOSE 106(H) 70 - 99 mg/dL [facility] ALBUMIN 4.4 3.9 - 4.8 g/dL [facility] TOTAL PROTEIN 6.8 6.5 - 8.0 g/dL [facility] CALCIUM 9.7 8.4 - 10.3 mg/dL [facility] ALKALINE PHOSPHATASE 94 39 - 117 U/L [facility] TOTAL BILIRUBIN <0.2 0.0 - 1.2 mg/dL [facility] AST 30 0 - 37 U/L [facility] ALT 26 0 - 40 U/L [facility] GLOBULIN 2.4 1 - 4.8 g/dL [facility] EGFR 84 >59 mL/min/1.7 3m2 [facility] Comment:Estimated glomerular filtration rate calculated using the CKD-EPI refit equation. ANION GAP 13 10 - 20 mmol/L [facility] Blood 09/26/2024 9:35 AM EDT 09/26/2024 9:42 AM EDT us Michelle Stokes NP LAB BLOOD ORDER HAYDEE Final Result Performing Organization Address City/State/[facility] Co de Phone Number [address] [address] * CBC (09/26/2024 9:35 AM EDT) WBC 8.34 4.00 - 11.00 K/uL [facility] RBC 4.49 4.00 - 5.20 M/uL [facility] HGB 13.1 12.0 - 16.0 g/dL [facility] HCT 39.6 36.0 - 46.0 % [facility] PLT 327 150 - 450 K/uL [facility] MCV 88.2 80.0 - 100.0 fL [facility] MCH 29.2 27.0 - 31.0 pg [facility] MCHC 33.1 32.0 - 36.0 g/dL [facility] RDW 12.8 11.5 - 14.5 % [facility] MPV 10.0 8.4 - 12.0 fL [facility] NRBC 0.00 0.00 /100 WBCs [facility] ABSOLUTE NRBC 0.00 0.00 K/uL [facility] Blood 09/26/2024 9:35 AM EDT 09/26/2024 9:42 AM EDT us Michelle Aric Stokes GREENHOUSE MANAGER LAB BLOOD ORDER HAYDEE Final Result [facility] [address] [place] [address] documented in this encounter Visit Diagnoses Diagnosis Slow transit constipation- Primary documented in this encounter Additional Health Concerns Assessment Noted Time PHQ-9 Depression Total Score: 8 02/21/20 20 11:39 AM EDT PHQ-2 Depression Total Score: 0 09/20/19 11:57 AM EDT documented as of this encounter Care Teams Digital Print Operator Relationship Specialty Start Date End Date Jaun Yarbrough MD [address] [facility], [address] [place] [address] [email or web address] PCP - General Internal Medicine 07/17/23 documented as of this encounter Additional Source Comments The information contained in this document represents components of the legal health record. It is not the complete legal health record.[facility]
== END 2025-01-09 06:24 | disposition home or self-care (01) ==
LOC: CF 06:23
PROVIDERS: Visit Provider Internal Medicine
DX: M47.816 Spondylosis without myelopathy or radiculopathy, lumbar region (principal)
CPT/HCPCS: 64493; 64494; J2003; J2795; Q9967

== ENCOUNTER 2025-01-09 09:10 | Outpatient (AMB) | payer MEDICARE, SELFPAY ==
[2025-01-09 09:14] VITALS: BP 120/72; PULSE 78; RESP 16; O2SAT 98
--- NOTE | 2025-01-09 09:14 | A.OFFVIS_ITS ---
Vital Signs 01/09/25 09:14 01/09/25 10:36 BP 120/72 110/70 Blood Pressure Location Lt brachial Lt brachial Position Sitting Sitting Respiration 16 16 Pulse 78 57 Pulse Source Pulse Oximeter Pulse Oximeter Pulse Oximetry (%) 98 97 Oxygen Delivery Method Room Air Room Air Intake Visit Reasons: Bilateral Diagnostic L3-L4-DR L5 MBB/Ativan Watermelon Harvesting Supervisor Required: No Allergies chlorthalidone (CHLORTHALIDONE) Allergy (Severe, Verified 01/09/25 09:15) PANCREATITIS carvedilol (CARVEDILOL) Allergy (Intermediate, Verified 01/09/25 09:15) SHORTNESS OF BREATH, sob,elevated bp Sulfa (Sulfonamide Antibiotics) Allergy (Intermediate, Verified 01/09/25 09:15) c-diff topiramate (Topamax) Allergy (Unknown, Verified 01/09/25 09:15) Unknown amitriptyline (AMITRIPTYLINE) Adverse Reaction (Intermediate, Verified 01/09/25 09:15) AGITATION atorvastatin Adverse Reaction (Intermediate, Verified 01/09/25 09:15) eye pain erythromycin base (ERYTHROMYCIN BASE) Adverse Reaction (Intermediate, Verified 01/09/25 09:15) NAUSEA gabapentin (GABAPENTIN) Adverse Reaction (Intermediate, Verified 01/09/25 09:15) ANXIETY lisinopril (LISINOPRIL) Adverse Reaction (Intermediate, Verified 01/09/25 09:15) COUGH Medication List - Last Reconciled 01/09/25 by Iris Kelly LPN albuterol sulfate 90 mcg/actuation 2 puffs inhalation Q4H PRN alprazolam 0.5 mg PO Q8H PRN amlodipine 10 mg PO DAILY betamethasone dipropionate 0.05% 1 appl topical BID bupropion HCl XL 300 mg PO QAM buspirone 10 mg PO TID qccqwlddcl-jymhzyitxdvsj-[id number] 50-325-40 mg 2 tabs PO TID PRN clonidine HCl 0.1 mg PO TID 60 days cyclobenzaprine 10 mg PO DAILY PRN diltiazem HCl CD 120 mg PO DAILY 90 days hydrochlorothiazide 12.5 mg PO DAILY irbesartan 150 mg PO DAILY methylphenidate HCl ER 20 mg PO DAILY montelukast 10 mg PO BEDTIME ondansetron HCl (Zofran) 4 mg PO Q6H PRN paroxetine HCl 30 mg PO QAM paroxetine HCl 30 mg PO DAILY prochlorperazine maleate 10 mg PO DAILY PRN pyridostigmine bromide 60 mg PO TID tramadol 50 mg PO BID PRN HPI HPI Bilateral Diagnostic L3-L4-DR L5 MBB/Ativan: Details: Patient presents for scheduled procedure. Denies any recent cough, cold, infection, fever or other significant changes in medical history since last office visit. [facility] Medical History (Updated 12/06/24 @ 09:00 by Katrina Bae APRN, SUPERVISOR VARNISH) Myasthenia gravis ADHD Hx of anxiety disorder Depression Arthritis Hx of acute pancreatitis Reflex sympathetic dystrophy Migraine Asthma Cardiomyopathy Hypertension Smoking COPD (chronic obstructive pulmonary disease) Cough Surgical History History of endometrial ablation History of nasal surgery History of arthroscopy of left knee History of surgery Hx of cardiac cath H/O lumbar sympathectomy History of appendectomy H/O section Family History Father Cardiomyopathy CHF (congestive heart failure) Mother HTN (hypertension) Angina pectoris Aneurysm Brother Colorectal cancer Brother Rectal polyp Sister Aneurysm Social History (Updated 07/29/22 @ 10:26 by MARGAUX Anderson) Household Members: Spouse Are you a primary child care supervisor to a significant other at home: No Do you presently have visiting nurse or other home services: No Patient Tobacco Use Status: Former Tobacco user Years Smoked: 25 Substance Use Type: Marijuana Current occupational status: disabled 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 The patient was placed in a prone position. The respective lumbosacral area was prepped with chloraprep and draped in sterile fashion. The skin over the target medial branch nerves was anesthetized with 0.5% lidocaine. A 22 gauge 3.5 inch needle was inserted into the target medial branch nerve under fluoroscopic guidance. No paresthesias were elicited with needle placement and aspiration was negative for blood and CSF. Next, 0.2cc of omnipaque 180 was injected to verify positioning in AP and oblique imaging. Next 10mg of triamcinilone mixed with 0.5 ml 0.5% ropivicaine was injected (0.5cc total per level). The identical procedure was performed at the remaining levels. The skin was cleansed and a sterile bandage was applied. Following the procedure the patient's vital signs were stable. The patient tolerated the procedure well and no complications were encountered. Following the procedure the patient's vital signs were stable. The patient was discharged home in good condition with post-procedural instructions. Time Out: Immediately prior to the procedure, the following was verbally confirmed that there is a signed consent form and that the correct patient, planned procedure, site and side are consistent with documentation and that necessary equipment and/or blood products are available prior to the start of the case. Complications: none EBL: <5 cc 58748 - with Fluoroscopy (L3-L4) 19581 - second level with Fluoroscopy (L3-L4-L5) Procedure code (CPT) selection complete Assessment & Plan Assessment & Plan (1) Lumbar spondylosis: Code(s): M47.816 - Spondylosis without myelopathy or radiculopathy, lumbar region Category: Medical Plan Patient is status post bilateral L3, L4 medial branches and L5 dorsal ramus diagnostic blocks. Patient tolerated procedure well and was discharged home in stable condition with discharge instructions. All questions were answered. We will follow-up via telephone or in clinic to assess response to therapy. A follow-up appointment was made during today's visit. Orders: Orders FL guidance in treatment room Today Katrina Bae APRN, SUPERVISOR VARNISH M47.816 - Spondylosis without myelopathy or radiculopathy, lumbar region AMB Medial Branch Block - Lumbar/Sacral Today Connor Golden MD M47.816 - Spondylosis without myelopathy or radiculopathy, lumbar region Coding Level of Care Code Procedure Only Diagnoses Lumbar spondylosis M47.816 CPT Codes Medial Branch Block Lumbar/Sacral1 - Branch Block Lumb/Sac 1: 31375 - with Fluoroscopy (L3-L4) ([id number]) Medial Branch Block Lumbar/Sacral1 - Branch Block Lumb/Sac 2: 56615 - second level with Fluoroscopy (L3-L4-L5) ([id number])
[2025-01-09 10:36] VITALS: BP 110/70; PULSE 57; RESP 16; O2SAT 97
== END 2025-01-09 10:39 | disposition home or self-care (01) ==
LOC: HO.PMCPRC 09:10
PROVIDERS: PCP Internal Medicine; Visit Provider Internal Medicine
DX: M47.816 Spondylosis without myelopathy or radiculopathy, lumbar region (principal)
CPT/HCPCS: 64493; 64494

== ENCOUNTER 2025-01-17 08:51 | Outpatient (AMB) | payer MEDICARE, SELFPAY ==
[2025-01-17 08:53] VITALS: BP 140/81; PULSE 95; RESP 16; O2SAT 98; BMI 25.9
--- NOTE | 2025-01-17 08:53 | A.OFFVIS_ITS ---
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 Layer Helper Required: No Accompanied by: Self / Same As Patient Allergies chlorthalidone (CHLORTHALIDONE) Allergy (Severe, Verified 01/17/25 08:58) PANCREATITIS carvedilol (CARVEDILOL) Allergy (Intermediate, Verified 01/17/25 08:58) SHORTNESS OF BREATH, sob,elevated bp Sulfa (Sulfonamide Antibiotics) Allergy (Intermediate, Verified 01/17/25 08:58) c-diff topiramate (Topamax) Allergy (Unknown, Verified 01/17/25 08:58) Unknown amitriptyline (AMITRIPTYLINE) Adverse Reaction (Intermediate, Verified 01/17/25 08:58) AGITATION atorvastatin Adverse Reaction (Intermediate, Verified 01/17/25 08:58) eye pain erythromycin base (ERYTHROMYCIN BASE) Adverse Reaction (Intermediate, Verified 01/17/25 08:58) NAUSEA gabapentin (GABAPENTIN) Adverse Reaction (Intermediate, Verified 01/17/25 08:58) ANXIETY lisinopril (LISINOPRIL) Adverse Reaction (Intermediate, Verified 01/17/25 08:58) COUGH HPI Comments Details: The patient is a 59-year-old female presenting for follow-up after bilateral diagnostic L3-L4 and L5 medial branch blocks. She reports experiencing significant pain relief of approximately 80% for 36 hours following the procedure, which then returned with increased intensity. The patient describes the pain as severe and impacting her daily activities, with a notable difference in her quality of life during the brief period of relief. The patient has been informed about potential treatment options, including a nerve stimulator and radiofrequency ablation, both of which aim to provide longer-term pain relief. She expresses concern about the invasiveness and potential discomfort associated with these procedures, particularly given her past experiences with similar interventions. - Onset: Post-procedural pain following medial branch blocks - Quality: Severe pain impacting daily activities - Relief: 80% relief for 36 hours post-procedure - Exacerbation: Pain returned with increased intensity after initial relief - Affect: Pain significantly impacts daily activities and quality of life - Analgesia: 80% relief for 36 hours post-procedure - Activities of Daily Living: Pain affects daily functioning, with notable im provement during relief period [facility] Medical History (Updated 12/06/24 @ 09:00 by Katrina Bae APRN, PARACHUTE PANEL JOINER) Myasthenia gravis ADHD Hx of anxiety disorder Depression Arthritis Hx of acute pancreatitis Reflex sympathetic dystrophy Migraine Asthma Cardiomyopathy Hypertension Smoking COPD (chronic obstructive pulmonary disease) Cough Surgical History History of endometrial ablation History of nasal surgery History of arthroscopy of left knee History of surgery Hx of cardiac cath H/O lumbar sympathectomy History of appendectomy H/O section Family History Father Cardiomyopathy CHF (congestive heart failure) Mother HTN (hypertension) Angina pectoris Aneurysm Brother Colorectal cancer Brother Rectal polyp Sister Aneurysm Social History (Updated 07/29/22 @ 10:26 by MARGAUX Anderson) Household Members: Spouse Are you a primary care team coordinator scheduler to a significant other at home: No Do you presently have visiting nurse or other home services: No Patient Tobacco Use Status: Former Tobacco user Years Smoked: 25 Substance Use Type: Marijuana Current occupational status: disabled 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 Answers questions appropriately. Fully engaged in examination. Skin: warm, dry, intact HEENT: Normocephalic. Hearing intact. Cardiac: External chest normal in appearance. Respiratory: No cough, audible wheezing or stridor. Abdomen: without gross distension. MS: No obvious swelling or deformities. Able to transition from sit to stand unassisted. Ambulates with bilaterally normal heel strike and toe off Neurological: Oriented to person, place, time and situation. Thought process intact. No gait abnormalities appreciated. Psychiatric: Appropriate mood and affect. Good judgment and insight. Vital Signs: Last Vital Signs Pulse 95 01/17/25 08:53 Resp 16 01/17/25 08:53 BP 140/81 H 01/17/25 08:53 Pulse Ox 98 01/17/25 08:53 Oxygen Delivery Method Room Air 01/17/25 08:53 BMI result Body Mass Index 25.9 Results Reviewed Results Reviewed: 11/29/24 MR/MR pelvis wo con FINDINGS: There is mild osteoarthritis of the hips with cartilage loss and subchondral marrow changes. Bone marrow signal intensity is otherwise normal. There is moderate degenerative change of the pubic symphysis with cartilage loss and osteophyte formation. The sacroiliac joints are maintained. There is severe degenerative disc disease at L5-S1. The visualized muscles demonstrate normal signal intensity. The urinary bladder is unremarkable. There is a 10 mm uterine fibroid on the right. There is no ascites or pelvic lymphadenopathy. IMPRESSION: 1. Moderate degenerative change of the pubic symphysis. 2. Mild osteoarthritis of the hips. 3. Severe degenerative disc disease at L5-S1. 4. 10 mm uterine fibroid on the right. 07/2022 XR/XR pelvis 1-2V FINDINGS: Bilateral hip joints and SI joint spaces maintained. The no visible fracture or dislocation seen involving the pelvic bone. Mild pubic symphysitis with hypertrophy is noted. There are surgical meredith in the right mid pelvis and left upper pelvis from previous vascular intervention likely. Otherwise, soft tissues are normal. IMPRESSION: 1. Mild pubic symphysitis. No visible acute fracture or dislocation seen. 2. There are surgical meredith in the right mid pelvis and left upper pelvis from previous vascular intervention. Assessment & Plan Assessment & Plan (1) Coccydynia: Code(s): M53.3 - Sacrococcygeal disorders, not elsewhere classified Category: Medical (2) Chronic pain syndrome: Code(s): G89.4 - Chronic pain syndrome Category: Medical (3) Pain of female symphysis pubis: Code(s): N94.9 - Unspecified condition associated with female genital organs and menstrual cycle Category: Medical (4) Lumbar spondylosis: Code(s): M47.816 - Spondylosis without myelopathy or radiculopathy, lumbar region Category: Medical (5) Degenerative disc disease, lumbar: Code(s): M51.369 - Other intervertebral disc degeneration, lumbar region without mention of lumbar back pain or lower extremity pain Category: Medical Plan The patient was presented with several options for managing her chronic low back pain, including the use of a nerve stimulator and radiofrequency ablation. The nerve stimulator involves a minimally invasive procedure where a small wire is placed near the affected nerves to disrupt pain signals, potentially providing relief for approx nine months. Radiofrequency ablation, on the other hand, involves using heat to ablate the nerves, which may offer relief for about a year. Pamphlets for both procedures provided to patient. The patient was advised to consider these options and contact the office once she decides on a preferred treatment plan. Additionally, therapeutic injections with steroids were discussed as a less favorable option due to potential side effects and diminishing returns with repeated use. Patient was informed and verbally consented to the use of an ambient scribe for clinic note documentation during this visit. Patient Instructions: - Review the information about nerve stimulator and radiofrequency ablation options. - Consider the pros and cons of each treatment option and decide on a preferred plan. - Contact the office once a decision is made regarding the treatment plan. Coding Level of Care Code Est Pt Level 3 (07386) Complex EM visit Add On G2211 Diagnoses Coccydynia M53.3 Chronic pain syndrome G89.4 Pain of female symphysis pubis N94.9 Lumbar spondylosis M47.816 Degenerative disc disease, lumbar M51.369
--- OUTSIDE RECORDS SUMMARY | 2025-01-17 09:33 | XMS_ITS | Clinical Summary ---
Author Organization [facility] ity Address [address] [place] [address] Care Team Providers Care Rework Machine Operator Name Role Phone Unavailable Primary Care [...] 08/23/2013 Zoster Vaccines (1 of 2) 08/23/2013 Depression Screening 05/08/2024 COVID-19 Vaccine (1 - 2023-2 5 season) 2025 Influenza Vaccine (#1) 2025 RSV Immunization Adult [...]
--- OUTSIDE RECORDS SUMMARY | 2025-01-17 09:33 | XMS_ITS | Patient Health Record ---
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.] Problem Status W/U Status Risk Notes Problem [id number] Colon cancer screening (Z12.11) Active confirmed Problem [id number] Uncomplicated opioid dependence (F11.20) Active confirmed Plan Of Treatment Future Test Test Name Order Date COLONOSCOPY 08/06/2015 Insurance Providers Payer Name Payer Address Payer Phone Subscriber Number Group Number Insured Name Patient Relationship to Insured Coverage Start Date Coverage End Date [employer] [employer] [place] [address] [place] [address] [id number] FREIDA NGUYEN Self - patient is the insured Medical (General) History Medical History History ICD Code hypertension urinary incontinence-stress induced asthma depression ReFlex sympathetic dystrophy Surgical History Surgery Date(Month/Year) lumbar sympathectomy c section knee arthroscopic right shoulder
--- OUTSIDE RECORDS SUMMARY | 2025-01-17 09:34 | XMS_ITS | Patient Health Record ---
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 Role Phone Jaun Yarbrough Primary Care Provider Bethany Dodd Unavailable [phone] Allergies Allergen (clinical drug ingredient) Drug/Non Drug [...] Duration) Notes Start Date End Date Status Ytprsuhmss-XNAB-Brtibjcj 50-325-40 MG Oral; Duration: 15 Days Active [...] Status Risk Notes Problem Acquired hallux valgus (85918220) Hallux valgus (acquired), right foot (M20.11) Active confirmed Problem Acute gout (322342928) 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) Active confirmed Vital Signs Blood pressure diastolic 84 mm Hg 11/19/2024 Height 5ft 4in in 11/19/2024 Blood pressure systolic 120 mm Hg 11/19/2024 Weight 148 lbs 11/19/2024 BMI 25.4 kg/m2 11/19/2024 Encounters Encounter Location Date Provider Diagnosis [facility] [address] [address] 11/19/2024 Bethany Perica Pain in right foot [...] Date [employer] 65 Medicare Preferred [address] [place] [address] [phone] [id number] Emelia Gallardo Self - patient is the insured Medical (General) History Medical History History ICD Code Anxiety Arthritis asthma Back,Hip,and Knee pain Broken bones Cataracts covid-19 Depression Headaches/Migraines High Blood Pressure Nerve disease Neuropathy Psoriasis/eczema Sciatica Chicken pox Surgical History Surgery Date(Month/Year) rotator cuff tear repair rsv left foot left knee
== END 2025-01-17 09:25 | disposition home or self-care (01) ==
LOC: HO.PMC 08:51
PROVIDERS: PCP Internal Medicine; Visit Provider Registered Nurse Emergency
DX: M53.3 Sacrococcygeal disorders, not elsewhere classified (principal); G89.4 Chronic pain syndrome; N94.9 Unspecified condition associated with female genital organs and menstrual cycle; M47.816 Spondylosis without myelopathy or radiculopathy, lumbar region; M51.369 Other intervertebral disc degeneration, lumbar region without mention of lumbar back pain or lower extremity pain
CPT/HCPCS: 99213; G2211

== ENCOUNTER → 2025-01-17 08:51 | Outpatient (BNVA) | payer MEDICARE, SELFPAY | PROVIDERS: PCP Internal Medicine; Visit Provider Registered Nurse Emergency | DX: M47.816 Spondylosis without myelopathy or radiculopathy, lumbar region (principal); M51.369 Other intervertebral disc degeneration, lumbar region without mention of lumbar back pain or lower extremity pain; N94.9 Unspecified condition associated with female genital organs and menstrual cycle; G89.4 Chronic pain syndrome; M53.3 Sacrococcygeal disorders, not elsewhere classified | CPT/HCPCS: 99212 ==